=== PATIENT | female | born 1965 | race Caucasian/White ===

== ENCOUNTER 2024-01-05 18:40 | Inpatient (IN) ==
--- NOTE | 2024-01-05 19:02 | Emergency Department Note ---
Impression & Plan Renal colic, Hematuria, Hydronephrosis, Hypertension, Elevated liver enzymes ED Provider Note NAME: BRITTANY HOGAN AGE: 58 SEX: F : 1965 ARRIVES VIA: Walk-In INFORMANT: [Patient] ED PROVIDER(S): [Dion Duke MD] CHIEF COMPLAINT: Hematuria HISTORY OF PRESENT ILLNESS: The patient is a 58-year-old female who presents to the ER with about a week of some bloody urine and lately, some left flank pain that radiates to the front. She actually has noticed some pain to both flanks but the pain seems more severe on the left. She has not had fever but she has noticed nausea. She has passed ureteral stones before and she feels this may be the trouble. There has been no cough or congestion. No chest pain. She has noticed some diarrhea but it has been nonbloody. 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 She is on medication for this. She states this was fairly recently diagnosed. PMHx/PSHx/Social Hx: See Below PHYSICAL EXAM: GENERAL: Patient is in no acute distress. HEENT: No acute trauma, normocephalic atraumatic, mucous membranes moist, no nasal congestion. NECK: No stridor, no adenopathy, no meningismus, trachea is midline. LUNGS: Clear to auscultation bilaterally, no wheeze, no rhonchi, breath sounds equal. HEART: Without murmurs gallops or rubs, regular rate and rhythm. ABDOMEN: Soft, tender across the entire left side of the abdomen. No distention. EXTREMITIES: No cyanosis, full range of motion of all the joints without pain or difficulty. NEUROLOGIC: Oriented x 3, no acute motor or sensory deficits, no focal weakness. SKIN: No jaundice, no diaphoresis. Back: Left flank discomfort to percussion. DIFFERENTIAL DIAGNOSIS: Renal colic, hydronephrosis, UTI, pyelonephritis, diverticulitis, among others. EMERGENCY DEPARTMENT PROCEDURES: MEDICAL DECISION MAKING: There is no leukocytosis or concerning anemia. There is a normal platelet count. No coagulopathy. No renal failure. The patient does have some elevated liver enzymes however, she has a history of liver disease. There is no evidence for pancreatitis. Urinalysis shows some blood, no obvious infection. Abdominal and pelvis CT shows numerous stones in the left ureter causing hydronephrosis. There was also a stone in the proximal right ureter. There was some change to the gallbladder and liver, this is likely from her known liver disease. The patient was hypertensive here in the ED. She states that she does not take medication for high blood pressure. Patient was given IV Toradol for pain, IV Zofran for nausea. She was given IV morphine for pain. She was given IV labetalol for the persistently high blood pressure. The patient does seem to be improving with treatment here in the ED. I do think a hospital stay would be warranted given the size of the obstruction on the left coupled with the fact that there is now a right ureteral obstruction. Patient may require urologic intervention tomorrow. I do not see a need for emergent urologic intervention this evening. I spoke with the patient, I spoke with case management, the on-call hospitalist was consulted. Prior/Outside records/notes reviewed: None Imaging/x-ray results per my interpretation: Chronic Medical/Social conditions affecting care: None Care/Management discussed with: Case management, the on-call hospitalist. Level of care consideration(s): After review of the information above and other included data: --I believe the patient requires escalation of care to admission DISPOSITION: Admission Past Med/Surg History Problem List (Updated 01/05/24 @ 20:09 by Dion Duke MD) Elevated liver enzymes (Acute) Hypertension (Acute) Hydronephrosis (Acute) Hematuria (Acute) Renal colic (Acute) Medical History Elevated liver function tests Social History Smoking Status: Unknown if ever smoked Do You Dip or Chew Tobacco: No; Hx Alcohol Use: Yes Hx Substance Use: No Preferred Language: [place] Irish Feels Safe at Home: Yes Allergies Allergies Allergy/AdvReac Type Severity Reaction Status Date / Time No Known Allergies Allergy Verified 06/01/23 08:51 Home Meds Home Medications Medication Instructions Recorded Confirmed estradiol 0.5 mg/0.5 gram (0.1 %) 1 packet transdermal DAILY 05/26/23 06/01/23 transdermal gel packet sertraline 50 mg tablet 50 mg PO DAILY 05/26/23 06/01/23 tamsulosin 0.4 mg capsule 0.4 mg PO DAILY 05/26/23 06/01/23 Results & Data (ED) Vital Signs Vital Signs - 24 hr 01/05/24 18:43 01/05/24 19:48 01/05/24 19:54 Temperature 36.7 C Temperature Source Temporal Artery Scan Pulse Rate 76 69 72 Pulse Rate from SpO2 Sensor 72 Respiratory Rate 20 18 Respiratory Effort / Characteristics Non-Labored Spontaneous Respiratory Depth Normal Blood Pressure 173/124 H Blood Pressure [Right Arm] Blood Pressure Mean 140 Blood Pressure Mean [Right Arm] Pulse Oximetry 97 98 Oxygen Delivery Method Room Air Sepsis Recent Fever Within 48 Hours No Sepsis New/Unexplained Change in Mental Status No Sepsis Action Taken by Nursing No Action Required 01/05/24 19:59 Temperature Temperature Source Pulse Rate Pulse Rate from SpO2 Sensor Respiratory Rate Respiratory Effort / Characteristics Respiratory Depth Blood Pressure Blood Pressure [Right Arm] 163/103 H Blood Pressure Mean Blood Pressure Mean [Right Arm] 123 Pulse Oximetry Oxygen Delivery Method Sepsis Recent Fever Within 48 Hours Sepsis New/Unexplained Change in Mental Status Sepsis Action Taken by Alf Medications Current Medication List: was personally reviewed by me Laboratory Data Attestation: I reviewed the patient's lab results. 01/05/24 19:05 01/05/24 19:05 Lab Results 01/05/24 01/05/24 Range/Units 19:05 Unknown WBC 4.81 (4.8-10.8) K/ul RBC 4.10 L (4.20-5.40) M/uL Hgb 13.0 (12.0-16.0) g/dl Hct 38.3 (37.0-47.0) % MCV 93.4 (80.0-100.0) fL MCH 31.7 (25.0-34.0) pg MCHC 33.9 (32.0-36.0) g/dL RDW Std Deviation 51.2 H (36.4-46.3) fL RDW Coeff of Vlad 14.8 H (11.5-14.5) % Plt Count 190 (130-400) K/uL MPV 9.2 L (9.4-12.4) fL Immature Gran % (Auto) 0.2 % Neut % (Auto) 47.1 % Lymph % (Auto) 42.0 % [place] % (Auto) 6.0 % Eos % (Auto) 3.7 % Baso % (Auto) 1.0 % Neut # (Auto) 2.26 (1.40-6.50) K/uL Lymph # (Auto) 2.02 (1.20-3.40) K/uL [place] # (Auto) 0.29 (0.11-0.59) K/uL Eos # (Auto) 0.18 (0.00-0.50) K/uL Baso # (Auto) 0.05 (0.00-0.20) K/uL Immature Gran # (Auto) 0.01 (0.01-0.20) K/uL PT 10.4 (9.0-12.0) Seconds INR 1.0 (0.9-1.1) APTT 25 (21-31) Seconds PTT Ratio 0.9 Sodium 140 (136-145) mmol/L Potassium 3.6 (3.5-5.1) mmol/L Chloride 107 (98-107) mmol/L Carbon Dioxide 26 (21-32) mmol/L Anion Gap 7 (3-11) BUN 10 (6-23) mg/dl Creatinine 0.80 (0.6-1.2) mg/dl Est Cr Clr Drug Dosing 71.8 ml/min eGFR 85.35 BUN/Creatinine Ratio 12.5 (10-20) Glucose 86 (70-99(Fasting)) mg/dl Calcium 8.8 (8.6-10.3) mg/dl Total Bilirubin 0.9 (0.2-1.0) mg/dl AST 48 H (13-39) U/L ALT 45 (7-52) U/L Alkaline Phosphatase 298 H (34-104) U/L Total Protein 7.2 (6.0-8.3) gm/dl Albumin 3.6 (3.4-5.0) gm/dl Globulin 3.6 (2.5-4.0) gm/dl Albumin/Globulin Ratio 1.0 (0.9-2) Lipase 44 (11-82) U/L Urine Color Red Urine Appearance Turbid A (Clear) Urine pH 7.0 (4.5-7.5) Ur Specific [place] >= 1.030 (1.000-1.030) Urine Protein 3+ H (Negative) Urine Glucose (UA) Negative (Negative) Urine Ketones Negative (Negative) Urine Blood 2+ H (Negative) Urine Nitrite Negative (Negative) Urine Bilirubin Negative (Negative) Urine Urobilinogen Negative (Negative) Ur Leukocyte Esterase Negative (Negative) Administered Medications Discontinued Medications Ketorolac Tromethamine (Ketorolac Tromethamine 15 Mg/Ml Vial) 15 mg IV NOW STA Stop: 01/05/24 18:58 Last Admin: 01/05/24 19:34 Dose: 15 mg Documented By: BS Morphine Sulfate (Morphine Sulfate 4 Mg/Ml 1 Ml Carp\Vial) 4 mg IV NOW STA Stop: 01/05/24 18:58 Last Admin: 01/05/24 19:33 Dose: 4 mg Documented By: BS Ondansetron HCl (Ondansetron Inj 2 Mg/Ml 2 Ml Vial) 4 mg IV NOW STA Stop: 01/05/24 18:58 Last Admin: 01/05/24 19:34 Dose: 4 mg Documented By: BS Imaging Data Radiologist's Impression: Abdomen/Pelvis CT 01/05/24 18:57 CT SCAN OF THE ABDOMEN AND PELVIS WITHOUT IV CONTRAST CLINICAL HISTORY: Flank pain. COMPARISON STUDY: No priors. TECHNIQUE: CT scan of the abdomen and pelvis is performed from the lung bases to the proximal femora. Images are reviewed in the axial, sagittal, and coronal planes. IV contrast was not administered for this examination. A dose lowering technique was utilized adhering to the principles of ALARA. CT DOSE: 781.18 mGy.cm FINDINGS: Lung bases: The heart is normal in size and without pericardial effusion. The lung bases are clear. Esophageal varices are observed. Liver: The unenhanced liver is cirrhotic in morphology and heterogeneous in attenuation. There is hypertrophy of the left lobe and nodularity of the hepatic surface contour. There is no intrahepatic biliary ductal dilatation. Gallbladder: The gallbladder is moderately distended, the wall appears thickened and edematous. Spleen: The spleen is mildly enlarged measuring 13.5 cm in length. Pancreas: The unenhanced pancreas is moderately atrophic and grossly unremarkable. Adrenal glands: Unremarkable. Kidneys: The unenhanced kidneys are normal in size. There are numerous (at least 5) obstructing calculi in the distal left ureter below the pelvic inlet. These measure up to 8mm and cause moderate left hydroureteronephrosis. There is a 4 mm obstructing calculus in the right proximal ureter seen on axial image #115. This is located just below the ureteropelvic junction. There is no significant right- sided hydronephrosis. There are greater than 10 additional nonobstructing calculi seen in each kidney which measure up to 9 mm. There is no evidence of contour deforming renal mass lesion. A retroaortic left renal vein is incidentally noted. Abdominal vasculature: The abdominal aorta is normal in course and caliber. Bowel: There is wall thickening and edema throughout the majority of the colon which extends from the cecum to the distal descending colon. This is consistent with a nonspecific colitis. There is pericolonic inflammation and fluid. No bowel obstruction is identified. There is a tiny duodenal diverticulum. The appendix is normal as visualized. Peritoneum: There is a fat-containing umbilical hernia. No intraperitoneal free air is identified. There is a small volume of abdominopelvic ascites. Lymphadenopathy: None. Pelvic viscera: The bladder is decompressed and not well evaluated. Uterus and adnexa are normal as visualized. Skeletal structures: There is mild lumbosacral spondylosis. There is an acute to subacute appearing superior endplate compression fracture of L1 with mild loss of height. There is a mild chronic-appearing superior endplate compression deformity of L4. No lytic or blastic lesions are seen. IMPRESSION: 1. There are at least 5 obstructing calculi in the distal left ureter which measure up to 8 mm. This causes moderate left hydroureteronephrosis. 2. There is a 4 mm obstructing calculus in the right proximal ureter just below the ureteropelvic junction. There is no significant right-sided hydronephrosis. 3. Numerous additional nonobstructing calculi are seen in both kidneys. 4. The liver is cirrhotic in morphology and heterogeneous attenuation. 5. Splenomegaly, esophageal varices, and abdominopelvic ascites indicate portal hypertension. 6. There is evidence of a nonspecific pancolitis. 7. The gallbladder is mildly distended, and the wall appears thickened/edematous. This may be related to adjacent hepatocellular disease and ascites. Correlate with clinical and laboratory findings for evidence of acute cholecystitis. 7. There is a mild and age indeterminant superior endplate compression fracture of L1 which appears acute to subacute. Correlate for point tenderness. 8. Additional findings as above. ACT 112: Negative or not required by law. Electronically signed by: Dion Whitten M.D. 01/05/2024 7:36 PM Discharge Plan Visit Data Chief Complaint: Hematuria Stated Complaint: BLOOD IN URINE, LIVER ISSUES ED Provider: Dion Duke Discharge Problem: Renal colic, Hematuria, Hydronephrosis, Hypertension, Elevated liver enzymes Patient Disposition: Admitted As Inpatient Condition: Fair Forms Stand Alone Forms: [facility] [employer] Prescriptions Prescriptions: No Action tamsulosin 0.4 mg capsule 0.4 mg PO DAILY estradiol 0.5 mg/0.5 gram (0.1 %) gel in packet 1 packet transdermal DAILY sertraline 50 mg tablet 50 mg PO DAILY Referrals Referrals: PCP,NO [Physician] - Discharge Problem: Hematuria Qualifiers: Hematuria type: gross Qualified Code(s): R31.0 - Gross hematuria Hydronephrosis Qualifiers: Hydronephrosis type: with renal calculous obstruction Qualified Code(s): N13.2 - Hydronephrosis with renal and ureteral calculous obstruction Hypertension Qualifiers: Hypertension type: unspecified Qualified Code(s): I10 - Essential (primary) hypertension
[2024-01-05 19:29] LABS: Basophils # (auto) 0.05 K/uL (0.00-0.20); Eosinophils # (auto) 0.18 K/uL (0.00-0.50); Eosinophils % (auto) 3.7 %; Hematocrit (blood only) 38.3 % (37.0-47.0); Immature Granulocytes # (auto) 0.01 K/uL (0.01-0.20); Immature Granulocytes % (auto) 0.2 %; Lymphocytes # (auto) 2.02 K/uL (1.20-3.40); Mean Corpuscular Hemoglobin 31.7 pg (25.0-34.0); Mean Corpuscular Hgb Conc 33.9 g/dL (32.0-36.0); Mean Corpuscular Volume 93.4 fL (80.0-100.0); Mean Platelet Volume 9.2 fL (9.4-12.4); Monocytes # (auto) 0.29 K/uL (0.11-0.59); Neutrophils # (auto) 2.26 K/uL (1.40-6.50); Neutrophils % (auto) 47.1 %; Platelet Count 190 K/uL (130-400); RDW Coefficient of Variation 14.8 % (11.5-14.5); RDW Standard Deviation 51.2 fL (36.4-46.3); White Blood Count 4.81 K/ul (4.8-10.8)
[2024-01-05] MEDS: MoRPHine SULFATE 4 MG/ML 1 ML CARP\\VIAL IV STA (19:33)
[2024-01-05] MEDS: KETOROLAC TROMETHAMINE 15 MG/ML VIAL IV STA (19:34)
[2024-01-05] MEDS: ONDANSETRON INJ 2 MG/ML 2 ML VIAL IV STA (19:34)
--- NOTE | 2024-01-05 19:39 | CT Scan Report ---
CT SCAN OF THE ABDOMEN AND PELVIS WITHOUT IV CONTRAST CLINICAL HISTORY: Flank pain. COMPARISON STUDY: No priors. TECHNIQUE: CT scan of the abdomen and pelvis is performed from the lung bases to the proximal femora. Images are reviewed in the axial, sagittal, and coronal planes. IV contrast was not administered for this examination. A dose lowering technique was utilized adhering to the principles of ALARA. CT DOSE: 781.18 mGy.cm FINDINGS: Lung bases: The heart is normal in size and without pericardial effusion. The lung bases are clear. E sophageal varices are observed. Liver: The unenhanced liver is cirrhotic in morphology and heterogeneous in attenuation. There is hyp ertrophy of the left lobe and nodularity of the hepatic surface contour. There is no intrahepatic garcía iary ductal dilatation. Gallbladder: The gallbladder is moderately distended, the wall appears thickened and edematous. Spleen: The spleen is mildly enlarged measuring 13.5 cm in length. Pancreas: The unenhanced pancreas is moderately atrophic and grossly unremarkable. Adrenal glands: Unremarkable. Kidneys: The unenhanced kidneys are normal in size. There are numerous (at least 5) obstructing calcu li in the distal left ureter below the pelvic inlet. These measure up to 8mm and cause moderate left hydroureteronephrosis. There is a 4 mm obstructing calculus in the right proximal ureter seen on axia l image #115. This is located just below the ureteropelvic junction. There is no significant right-si ded hydronephrosis. There are greater than 10 additional nonobstructing calculi seen in each kidney w hich measure up to 9 mm. There is no evidence of contour deforming renal mass lesion. A retroaortic l eft renal vein is incidentally noted. Abdominal vasculature: The abdominal aorta is normal in course and caliber. Bowel: There is wall thickening and edema throughout the majority of the colon which extends from the cecum to the distal descending colon. This is consistent with a nonspecific colitis. There is ching lonic inflammation and fluid. No bowel obstruction is identified. There is a tiny duodenal diverticul um. The appendix is normal as visualized. Peritoneum: There is a fat-containing umbilical hernia. No intraperitoneal free air is identified. Th ere is a small volume of abdominopelvic ascites. Lymphadenopathy: None. Pelvic viscera: The bladder is decompressed and not well evaluated. Uterus and adnexa are normal as v isualized. Skeletal structures: There is mild lumbosacral spondylosis. There is an acute to subacute appearing s uperior endplate compression fracture of L1 with mild loss of height. There is a mild chronic-appeari ng superior endplate compression deformity of L4. No lytic or blastic lesions are seen. IMPRESSION: 1. There are at least 5 obstructing calculi in the distal left ureter which measure up to 8 mm. This causes moderate left hydroureteronephrosis. 2. There is a 4 mm obstructing calculus in the right proximal ureter just below the ureteropelvic gavin ction. There is no significant right-sided hydronephrosis. 3. Numerous additional nonobstructing calculi are seen in both kidneys. 4. The liver is cirrhotic in morphology and heterogeneous attenuation. 5. Splenomegaly, esophageal varices, and abdominopelvic ascites indicate portal hypertension. 6. There is evidence of a nonspecific pancolitis. 7. The gallbladder is mildly distended, and the wall appears thickened/edematous. This may be related to adjacent hepatocellular disease and ascites. Correlate with clinical and laboratory findings for evidence of acute cholecystitis. 7. There is a mild and age indeterminant superior endplate compression fracture of L1 which appears a cute to subacute. Correlate for point tenderness. 8. Additional findings as above. ACT 112: Negative or not required by law. Electronically signed by: Dion Whitten M.D. 01/05/2024 7:36 PM
[2024-01-05 19:41] LABS: Albumin Level 3.6 gm/dl (3.4-5.0); BUN Creatinine Ratio 12.5 (10-20); Bilirubin,Total 0.9 mg/dl (0.2-1.0); Calcium 8.8 mg/dl (8.6-10.3); Creatinine Clr Calc Pharmacy 71.8 ml/min; Globulin 3.6 gm/dl (2.5-4.0); Potassium 3.6 mmol/L (3.5-5.1); Total Protein 7.2 gm/dl (6.0-8.3)
[2024-01-05 19:49] LABS: Partial Thromboplastin Ratio 0.9; Partial Thromboplastin Time 25 Seconds (21-31); Prothrombin Time 10.4 Seconds (9.0-12.0)
[2024-01-05 19:51] LABS: Appearance Urine Turbid (Clear); Bilirubin Urine Negative (Negative); Blood Urine 2+ (Negative); Color Urine Red; Glucose Urine UA Negative (Negative); Ketones Urine Negative (Negative); Leukocyte Esterase Urine Negative (Negative); Nitrite Urine Negative (Negative); Protein Urine 3+ (Negative); Specific Gravity Urine >= 1.030 (1.000-1.030); Urobilinogen Urine Negative (Negative)
[2024-01-05 20:08] LABS: Bacteria Urine None Seen (None Seen); Epithelial Cell Urine 0-2 /hpf (0-2); RBC Urine >20 /hpf (0-2)
--- NOTE | 2024-01-05 20:13 | History & Physical Report ---
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 after midnight in anticipation of procedure DVT prophylaxis. SCDs re: hematuria Full code History of Present Illness Chief Complaint: Hematuria, flank pain Primary Care Provider: SLICK Feliciano History obtained from patient, family, and records. 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 1 month history of intermittent left flank pain, hematuria symptoms similar to kidney stone attacks in the past. Possible passage of stone at home. No fever, no chills, Some nausea. Patient seen at PCPs office last week. Outpatient imaging contemplated. Patient started on Cipro course for possible UTI. Outpatient urine CS possibly growing Staphylococcus as per patient. No improvement in symptoms. SBP 170s upon arrival at the ER. Denies headache, chest pain, or unusual SOB. 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 Allergies Allergy/AdvReac Type Severity Reaction Status Date / Time No Known Allergies Allergy Verified 01/05/24 20:26 Home Medications Medication Instructions Recorded Confirmed Type cholecalciferol (vitamin D3) 50 50 mcg PO QAM 01/05/24 01/05/24 History mcg (2,000 unit) tablet (Vitamin D3) ciprofloxacin HCl 500 mg tablet 500 mg PO Q12 01/05/24 01/05/24 History escitalopram oxalate 20 mg tablet 20 mg PO QAM 01/05/24 01/05/24 History multivitamin with minerals 1 tab PO DAILY 01/05/24 01/05/24 History (Hair,Skin and Nails tablet) tramadol 50 mg tablet 50 mg PO Q12 PRN Severe Pain 01/05/24 01/05/24 History (Scale Score 7-10) ursodiol 500 mg tablet 500 mg PO BIDM 01/05/24 01/05/24 History vitamin A 3,000 mcg (10,000 unit) 10,000 unit PO QPM 01/05/24 01/05/24 History capsule Past Med/Surg History Problem List (Updated 01/05/24 @ 21:49 by Raúl Hernandez MD) Asymptomatic hypertensive urgency Elevated liver enzymes (Acute) Hypertension (Acute) Hydronephrosis (Acute) Hematuria (Acute) Renal colic (Acute) Medical History Elevated liver function tests Social History Smoking Status: Never smoker Do You Dip or Chew Tobacco: No; Hx Alcohol Use: Yes Alcohol type: wine Hx Substance Use: No Preferred Language: Kiswahili Research Geologist Required: No Beliefs That Will Affect Care: None Current Living Situation: Spouse Feels Safe at Home: Yes Safety Concerns: Feels Safe At This Time Assistive Devices: Glasses Review of Systems Review of Systems: As per HPI, all other systems reviewed and negative Physical Exam Physical Exam: GENERAL: Comfortable, pleasant, no respiratory distress SKIN: Normal color, warm HEENT: Bespectacled, pink palpebral conjunctivae, no ptosis, dry buccal mucosa NECK : Supple, no tenderness CHEST : CTA, no tenderness HEART : RRR, no obvious murmurs ABDOMEN: Some distention, left-sided abdominal tenderness EXTREMITIES : No LE swelling/tenderness, no other conspicuous deformities noted NEUROLOGIC : Coherent, no facial asymmetry, no other gross focality Results & Data Results & Data Vital Signs (Past 12 Hours) Vital Signs Temp Pulse Resp BP BP Pulse Ox O2 Del Method 01/05/24 19:59 163/103 H 01/05/24 19:54 72 18 98 01/05/24 19:48 69 01/05/24 18:43 36.7 C 76 20 173/124 H 97 Room Air Laboratory Results Laboratory Results WBC 4.81 K/ul (4.8-10.8) 01/05/24 19:05 RBC 4.10 M/uL (4.20-5.40) L 01/05/24 19:05 Hgb 13.0 g/dl (12.0-16.0) 01/05/24 19:05 Hct 38.3 % (37.0-47.0) 01/05/24 19:05 MCV 93.4 fL (80.0-100.0) 01/05/24 19:05 MCH 31.7 pg (25.0-34.0) 01/05/24 19:05 MCHC 33.9 g/dL (32.0-36.0) 01/05/24 19:05 RDW Std Deviation 51.2 fL (36.4-46.3) H 01/05/24 19:05 RDW Coeff of Vlad 14.8 % (11.5-14.5) H 01/05/24 19:05 Plt Count 190 K/uL (130-400) 01/05/24 19:05 MPV 9.2 fL (9.4-12.4) L 01/05/24 19:05 Immature Gran % (Auto) 0.2 % 01/05/24 19:05 Neut % (Auto) 47.1 % 01/05/24 19:05 Lymph % (Auto) 42.0 % 01/05/24 19:05 [place] % (Auto) 6.0 % 01/05/24 19:05 Eos % (Auto) 3.7 % 01/05/24 19:05 Baso % (Auto) 1.0 % 01/05/24 19:05 Neut # (Auto) 2.26 K/uL (1.40-6.50) 01/05/24 19:05 Lymph # (Auto) 2.02 K/uL (1.20-3.40) 01/05/24 19:05 [place] # (Auto) 0.29 K/uL (0.11-0.59) 01/05/24 19:05 Eos # (Auto) 0.18 K/uL (0.00-0.50) 01/05/24 19:05 Baso # (Auto) 0.05 K/uL (0.00-0.20) 01/05/24 19:05 Immature Gran # (Auto) 0.01 K/uL (0.01-0.20) 01/05/24 19:05 PT 10.4 Seconds (9.0-12.0) 01/05/24 19:05 INR 1.0 (0.9-1.1) 01/05/24 19:05 APTT 25 Seconds (21-31) 01/05/24 19:05 PTT Ratio 0.9 01/05/24 19:05 Sodium 140 mmol/L (136-145) 01/05/24 19:05 Potassium 3.6 mmol/L (3.5-5.1) 01/05/24 19:05 Chloride 107 mmol/L (98-107) 01/05/24 19:05 Carbon Dioxide 26 mmol/L (21-32) 01/05/24 19:05 Anion Gap 7 (3-11) 01/05/24 19:05 BUN 10 mg/dl (6-23) 01/05/24 19:05 Creatinine 0.80 mg/dl (0.6-1.2) 01/05/24 19:05 Est Cr Clr Drug Dosing 71.8 ml/min 01/05/24 19:05 eGFR 85.35 01/05/24 19:05 BUN/Creatinine Ratio 12.5 (10-20) 01/05/24 19:05 Glucose 86 mg/dl (70-99(Fasting)) 01/05/24 19:05 Calcium 8.8 mg/dl (8.6-10.3) 01/05/24 19:05 Total Bilirubin 0.9 mg/dl (0.2-1.0) 01/05/24 19:05 AST 48 U/L (13-39) H 01/05/24 19:05 ALT 45 U/L (7-52) 01/05/24 19:05 Alkaline Phosphatase 298 U/L (34-104) H 01/05/24 19:05 Total Protein 7.2 gm/dl (6.0-8.3) 01/05/24 19:05 Albumin 3.6 gm/dl (3.4-5.0) 01/05/24 19:05 Globulin 3.6 gm/dl (2.5-4.0) 01/05/24 19:05 Albumin/Globulin Ratio 1.0 (0.9-2) 01/05/24 19:05 Lipase 44 U/L (11-82) 01/05/24 19:05 Urine Color Red 01/05/24 Unknown Urine Appearance Turbid (Clear) A 01/05/24 Unknown Urine pH 7.0 (4.5-7.5) 01/05/24 Unknown Ur Specific [place] >= 1.030 (1.000-1.030) 01/05/24 Unknown Urine Protein 3+ (Negative) H 01/05/24 Unknown Urine Glucose (UA) Negative (Negative) 01/05/24 Unknown Urine Ketones Negative (Negative) 01/05/24 Unknown Urine Blood 2+ (Negative) H 01/05/24 Unknown Urine Nitrite Negative (Negative) 01/05/24 Unknown Urine Bilirubin Negative (Negative) 01/05/24 Unknown Urine Urobilinogen Negative (Negative) 01/05/24 Unknown Ur Leukocyte Esterase Negative (Negative) 01/05/24 Unknown Urine RBC >20 /hpf (0-2) H 01/05/24 Unknown Urine WBC 6-10 /hpf (0-5) H 01/05/24 Unknown Ur Epithelial Cells 0-2 /hpf (0-2) 01/05/24 Unknown Urine Bacteria None Seen (None Seen) 01/05/24 Unknown Impressions Abdomen/Pelvis CT 01/05/24 18:57 CT SCAN OF THE ABDOMEN AND PELVIS WITHOUT IV CONTRAST CLINICAL HISTORY: Flank pain. COMPARISON STUDY: No priors. TECHNIQUE: CT scan of the abdomen and pelvis is performed from the lung bases to the proximal femora. Images are reviewed in the axial, sagittal, and coronal planes. IV contrast was not administered for this examination. A dose lowering technique was utilized adhering to the principles of ALARA. CT DOSE: 781.18 mGy.cm FINDINGS: Lung bases: The heart is normal in size and without pericardial effusion. The lung bases are clear. Esophageal varices are observed. Liver: The unenhanced liver is cirrhotic in morphology and heterogeneous in attenuation. There is hypertrophy of the left lobe and nodularity of the hepatic surface contour. There is no intrahepatic biliary ductal dilatation. Gallbladder: The gallbladder is moderately distended, the wall appears thickened and edematous. Spleen: The spleen is mildly enlarged measuring 13.5 cm in length. Pancreas: The unenhanced pancreas is moderately atrophic and grossly unremarkable. Adrenal glands: Unremarkable. Kidneys: The unenhanced kidneys are normal in size. There are numerous (at least 5) obstructing calculi in the distal left ureter below the pelvic inlet. These measure up to 8mm and cause moderate left hydroureteronephrosis. There is a 4 mm obstructing calculus in the right proximal ureter seen on axial image #115. This is located just below the ureteropelvic junction. There is no significant right- sided hydronephrosis. There are greater than 10 additional nonobstructing calculi seen in each kidney which measure up to 9 mm. There is no evidence of contour deforming renal mass lesion. A retroaortic left renal vein is incidentally noted. Abdominal vasculature: The abdominal aorta is normal in course and caliber. Bowel: There is wall thickening and edema throughout the majority of the colon which extends from the cecum to the distal descending colon. This is consistent with a nonspecific colitis. There is pericolonic inflammation and fluid. No bowel obstruction is identified. There is a tiny duodenal diverticulum. The appendix is normal as visualized. Peritoneum: There is a fat-containing umbilical hernia. No intraperitoneal free air is identified. There is a small volume of abdominopelvic ascites. Lymphadenopathy: None. Pelvic viscera: The bladder is decompressed and not well evaluated. Uterus and adnexa are normal as visualized. Skeletal structures: There is mild lumbosacral spondylosis. There is an acute to subacute appearing superior endplate compression fracture of L1 with mild loss of height. There is a mild chronic-appearing superior endplate compression deformity of L4. No lytic or blastic lesions are seen. IMPRESSION: 1. There are at least 5 obstructing calculi in the distal left ureter which measure up to 8 mm. This causes moderate left hydroureteronephrosis. 2. There is a 4 mm obstructing calculus in the right proximal ureter just below the ureteropelvic junction. There is no significant right-sided hydronephrosis. 3. Numerous additional nonobstructing calculi are seen in both kidneys. 4. The liver is cirrhotic in morphology and heterogeneous attenuation. 5. Splenomegaly, esophageal varices, and abdominopelvic ascites indicate portal hypertension. 6. There is evidence of a nonspecific pancolitis. 7. The gallbladder is mildly distended, and the wall appears thickened/edematous. This may be related to adjacent hepatocellular disease and ascites. Correlate with clinical and laboratory findings for evidence of acute cholecystitis. 7. There is a mild and age indeterminant superior endplate compression fracture of L1 which appears acute to subacute. Correlate for point tenderness. 8. Additional findings as above. ACT 112: Negative or not required by law. Electronically signed by: Dion Whitten M.D. 01/05/2024 7:36 PM Diagnostic Findings EKG as per my interpretation : Rate 55, sinus bradycardia, normal axis, incomplete RBBB, LAE, no ischemia
[2024-01-05] MEDS ORDERED: LORazepam 0.5 MG TAB PO PRN (20:15)
[2024-01-05] MEDS: cloNIDine HCL 0.1 MG TAB PO ONE (20:17)
[2024-01-05] MEDS: LABETALOL HCL IV 5 MG/ML 20ML IV STA (20:18)
[2024-01-05] MEDS: oxyCODONE HCL IR 5 MG TAB (IMMEDIATE RELEASE) PO PRN (21:26)
[2024-01-05] MEDS: ALBUMIN 25% 25 GM/100 ML VIAL IV ONE (21:27)
[2024-01-05] MEDS: lisinopril 2.5 MG TAB PO SCH (21:59)
[2024-01-05] MEDS: TAMSULOSIN HCL 0.4 MG CAP PO SCH (22:05)
[2024-01-05] MEDS: MoRPHine SULFATE 4 MG/ML 1 ML CARP\\VIAL IV PRN (23:44)
[2024-01-06] MEDS: PROMETHAZINE 6.25 MG/50.25 ML BAG IV PRN (03:04)
--- OUTSIDE RECORDS SUMMARY | 2024-01-06 03:11 | External Medical Summary ---
Author Name Unknown Address Unknown Organization [id number]:[facility] [address] [place] [address] Laboratory Report Ordering Provider Test Date Status TING MORA 12/23/2023 12:31:44 Final Observation Date Value Abnormality Reference (Units ) Status Albumin 12/23/2023 12:31:44 3.6 Below low normal 3.8-5.0 (g/dL) Final AST (Aspartate aminotransferase) 12/23/2023 12:31:44 64 Above high normal 10-35 (U/L) Final Alk Phos 12/23/2023 12:31:44 305 Above high normal 35-130 (U/L) Final ALT (Alanine aminotransferase) 12/23/2023 12:31:44 55 Above high normal 10-35 (U/L) Final Bilirubin, Total 12/23/2023 12:31:44 0.9 <=1.2 (mg/dL) Final Bilirubin, Direct 12/23/2023 12:31:44 0.3 0.0-0.3 (mg/dL) Final Protein 12/23/2023 12:31:44 7.2 6.0-8.3 (g/dL) Final Performing Location [facility] [place] [address]
--- OUTSIDE RECORDS SUMMARY | 2024-01-06 03:11 | External Medical Summary ---
Author Name Unknown Address Unknown Organization [id number]:[facility] - [address] [place] [address] Laboratory Report Ordering Provider Test Date Status VIKKI HEBERT 12/29/2023 15:13:20 Final Observation Date Value Abnormality Reference (Units ) Status Magnesium 12/29/2023 15:13:20 1.9 1.5-2.6 (m g/dL) Final Performing Location [facility] - [address] [place] [address]
--- OUTSIDE RECORDS SUMMARY | 2024-01-06 03:11 | External Medical Summary | Summary of Care ---
Author Name Unknown Organization [facility] Address [address] [place] [address] Phone [phone] Care Team Providers Care Acquisition Marketing Coordinator Name Role Phone AaronDarylMary Gracepaul KRUGER Primary Care Provider + Reason for Visit * Reason Comments Outpatient Testing Encounter Details Date Type Department Care Team (Late st Contact Info) Description 12/23/2023 12:30 PM EDT Laboratory Laboratory, [facility] [address] [place] [id number] [facility] [address] [place] [address] PSC (primary sclerosing cholangitis); Primary biliary cholangitis (HCC); Cirrhosis of liver without ascites, unspecified hepatic cirrhosis type (HCC); Vitamin A deficiency Allergies No known active allergiesdocumented as of this encounter (statuses as of 12/23/2023) Medications Medication Sig Dispensed Refills Start Date End Date Status traMADol (ULTRAM) 25 MG Tablet Take 0.5 Tablets by mouth every 6 hours as needed for Pain. Active Escitalopram Oxalate 10 MG Oral Tablet (Lexapro) Take 2 Tablets by mouth daily. Takes in the evening Active Ursodiol 500 MG Oral TabletIndications:P SC (primary sclerosing cholangitis),Primar y biliary cholangitis (HCC),Cirrhosis of liver without ascites, unspecified hepatic cirrhosis type (HCC) Take 1 Tablet by mouth 2 times a day with morning and evening meals. 180 Tablet 2 07/12/2023 Active Vitamin D (Ergocalciferol) 76493 UNIT Oral CapsuleIndications: Osteoporosis without current pathological fracture, unspecified osteoporosis type,Vitamin D deficiency Take 50,000 Units by mouth once a week. 8 Capsule 07/13/2023 Active Additional Information Patient taking differently: 2,000 UnitsOral QWEEK, Reported on 10/31/2023 Vitamin A 7.5 MG (29332 UT) Oral Capsule Take by mouth. Active documented as of this encounter (statuses as of 12/23/2023) Active Problems Problem Noted Date Diagnosed Date Other osteoporosis without current pathological fracture 07/19/2023 documented as of this encounter (statuses as of 12/23/2023) Social History Tobacco Use Types Packs/Day Years Used Date Smoking Tobacco: Never Smokeless Tobacco: Never Alcohol Use Standard Drinks/Week Comments Not Asked 0 (1 standard drink = 0.6 oz pur e alcohol) Occassional Last New years Utilities Answer Date Recorded Do you have trouble paying y our heating, water, or electric bill? (Adult - for ages 18 years and over) Not on file 08/23/2023 Is your family able to pay t he heat, water, or electric bill? (Household - for ages 0-17 years) Not on file 08/23/2023 Does your family have access to good internet? (Household - for ages 0-17 years) Not on file 08/23/2023 Social Connections Answer Date Recorded How often do you feel lonely or isolated from those around you? (Adult - for ages 18 years and over) Not on file 08/23/2023 Sex and Gender Information Value Date Recorded Sex Assigned at Female 07/19/2023 2:02 PM EDT Gender Identity Female 07/19/2023 2:02 PM EDT Sexual Orientation Straight 07/19/2023 2: 02 PM EDT Job Start Date Occupation Industry Not on file Not on file Not on file documented as of this encounter Plan of Treatment Upcoming Encounters Date Type Department Care Team (Late st Contact Info) Description 01/31/2024 8:00 AM EST Imaging Radiology [address] [place] [address] 04/26/2024 11:40 AM EST Office Visit Hepatology, [facility] [address] [place] [address] Cecy Zavala DO [address] [place] [address] Pending Results Name Type Priority Associated Diagnoses Date /Time HEPATIC FUNCTION PANEL Lab Routine 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 of liver without ascites, unspecified hepatic cirrhosis type (HCC) 12/23/2023 12:31 PM EDT VITAMIN A (RETINOL) Lab Routine Vitamin A deficiency 12/23/2023 12:31 PM EDT Scheduled Procedures Name Priority Associated Diagnoses Date/Ti me COLONOSCOPY FLEXIBLE PROXIMA L DIAGNOSTIC Recall History of colonic polyps Health Maintenance Due Date Last Done Comments Lipid Panel 1965 Pneumococcal Vaccine: Pediatrics (0 to 5 Years) and At-Risk Patients (6 to 64 Years) (1 of 2 - PCV) 1971 Depression Screening 1977 HIV Screening 01/30/1980 Hepatitis C Screening 1983 DTap/Tdap Vaccines (1 - Tdap) 01/30/1984 Hepatitis B Vaccine (1 of 3 - 19+ 3-dose series) 01/30/1984 Mammogram 2005 Cologuard 2010 Fecal Occult Blood Test 2010 Sigmoidoscopy 2010 Zoster Vaccines (1 of 2) 2015 *BISPHONATE OR OTHER ACCEPTABLE MEDICATION NEEDED FOR OSTEOPOROSIS (REFER TO SMARTSET #1146) 07/22/2023 COVID-19 Vaccine (1 - 2023-2 5 season) 2023 Influenza Vaccine (FLU shot) (#1) 2023 DXA Scan 07/11/2025 07/12/2023 Diabetes Screening 09/26/2026 09/27/2023, 07/12/2023 Colonoscopy 07/13/2028 07/14/2023, 07/14/2023 Colorectal Cancer Screening 07/13/2028 VITAMIN D LEVEL ONCE IN A LIFETIME-USE SMARTSET# 07963 Completed 09/27/2023, 07/12/2023 HPV (Gardasil) Vaccine Aged Out No lo nger eligible based on patient's age to complete this topic MENINGOCOCCAL (MENACTRA/MENVEO) Aged Out No longer eligible b ased on patient's age to complete this topic documented as of this encounter Medical Devices Not on filedocumented as of this encounter Visit Diagnoses Diagnosis PSC (primary sclerosing cholangitis) Cholangitis Primary biliary cholangitis (HCC) Cirrhosis of liver without ascites, unspecified hepatic cirrhosis type (HCC) Vitamin A deficiency Unspecified vitamin A deficiency documented in this encounter Care Teams Acquisition Marketing Coordinator Relationship Specialty Start Date End Date Mary Grace Walker CRNP [address] [place] [address] [place] [id number] PCP - General Nurse Practitioner 06/28/23 documented as of this encounter
--- OUTSIDE RECORDS SUMMARY | 2024-01-06 03:11 | External Medical Summary ---
Author Name Unknown Address Unknown Organization [id number] [address] [place] [address] Laboratory Report Ordering Provider Test Date Status VIKKI HEBERT 12/29/2023 15:13:20 Final Observation Date Value Abnormality Reference (Units ) Status WBC, Total 12/29/2023 15:13:20 4.96 4.00-10.8 0 (K/uL) Final RBC 12/29/2023 15:13:20 3.93 3.85-5.15 (M/uL) Final Hemoglobin 12/29/2023 15:13:20 12.6 12.0-15.3 (g/dL) Final HCT 12/29/2023 15:13:20 38.4 36.0-45.2 (%) Final MCV 12/29/2023 15:13:20 97.7 81.5-97.5 (fL) Final MCH 12/29/2023 15:13:20 32.1 27.0-34.0 (pg) Final MCHC 12/29/2023 15:13:20 32.8 32.0-36.0 (g/dL) Final RDW 12/29/2023 15:13:20 15.1 11.5-15.5 (%) Final Platelets 12/29/2023 15:13:20 180 140-400 (K /uL) Final MPV 12/29/2023 15:13:20 9.0 6.6-11.1 ( fL) Final Performing [facility] [address] [place] [address]
--- OUTSIDE RECORDS SUMMARY | 2024-01-06 03:11 | External Medical Summary ---
Author Name Unknown Address Unknown Organization [id number]:[facility] [address] [facility] [place] [address] Laboratory Report Ordering Provider Test Date Status VERONICA HEBERTPE 12/29/2023 15:13:20 Final Observation Date Value Abnormality Reference (Units ) Status BUN 12/29/2023 15:13:20 11 6-20 (mg/dL) Final Creatinine 12/29/2023 15:13:20 0.8 0.5-1.0 (mg/dL) Final Glomerular filtration rate/1.73 sq M.predicted [Volume Rate/Area] in Serum, Plasma or Blood by Creatinine-based formula (CKD-EPI) 12/29/2023 15:13:20 87 >=60 (mL/min) Final eGFR is calculated based on the CKD-EPI 2020 equation. Sodium 12/29/2023 15:13:20 141 135-146 (m mol/L) Final Potassium 12/29/2023 15:13:20 4.3 3.5-5.1 (m mol/L) Final Cl 12/29/2023 15:13:20 105 98-107 (mm ol/L) Final CO2 12/29/2023 15:13:20 26 22-32 (mmo l/L) Final Anion gap 12/29/2023 15:13:20 10 7-15 (mmol /L) Final Glucose 12/29/2023 15:13:20 79 70-120 (mg /dL) Final Albumin 12/29/2023 15:13:20 3.7 Below low normal 3.8 -5.0 (g/dL) Final AST (Aspartate aminotransferase) 12/29/2023 15:13:20 135 Above high normal 10-35 (U/L) Final Alk Phos 12/29/2023 15:13:20 426 Above high normal 35 -130 (U/L) Final Bilirubin, Total 12/29/2023 15:13:20 0.7 <=1 .2 (mg/dL) Final Calcium 12/29/2023 15:13:20 9.0 8.4-10.2 ( mg/dL) Final Protein 12/29/2023 15:13:20 6.8 6.0-8.3 (g /dL) Final ALT (Alanine aminotransferase) 12/29/2023 15:13:20 108 Above high normal 10-35 (U/L) Final Performing Location [facility] - [address] [facility] [address]
--- OUTSIDE RECORDS SUMMARY | 2024-01-06 03:11 | External Medical Summary | Summary of Care ---
Author Name Unknown Organization [facility] Address [address] [facility] [place] [address] Phone [phone] Care Team Providers Care Contract Coordinator Name Role Phone Mary Grace Walker Primary Care Provider + Encounter Details Date Type Department Care Team (Late st Contact Info) Description 11/02/2023 Telephone Hepatology, [facility] [address] [place] [address] Cecy Zavala DO [address] [place] [address] Allergies No known active allergiesdocumented as of this encounter (statuses as of 11/02/2023) Medications Medication Sig Dispensed Refills Start Date [...] Tablet 2 07/12/2023 Active Vitamin D (Ergocalciferol) 55662 UNIT Oral CapsuleIndications: Osteoporosis without current pathological fracture, unspecified osteoporosis type,Vitamin D deficiency Take 50,000 Units by mouth once a week. 8 Capsule 07/13/2023 Active Additional Information Patient taking differently: 2,000 UnitsOral QWEEK, Reported on 10/31/2023 Vitamin A 7.5 MG (80299 UT) Oral Capsule Take by mouth. Active documented as of this encounter (statuses as of 11/02/2023) Active Problems Problem Noted Date Diagnosed Date Other osteoporosis without current pathological fracture 07/19/2023 documented as of this encounter (statuses as of 11/02/2023) Social History Tobacco Use Types Packs/Day Years [...] on file documented as of this encounter Miscellaneous Notes * Telephone Encounter - Cecy Zavala DO - 11/02/2023 12:13 PM EDT Please let patient know vitamin A levels are still low. They are improved from prior but remain low. Continue vitamin A supplementation for 3 more months and then we will check again. Cecy Zavala DO documented in this encounter Plan of Treatment Upcoming Encounters Date Type Department Care Team (Late st Contact Info) Description 01/31/2024 8:00 AM EST Imaging Radiology [facility] [address] [place] [address] 04/26/2024 11:40 AM EST Office Visit Hepatology, [facility] [address] [place] [address] Cecy Zavala DO [address] [place] [address] Scheduled Procedures Name Priority Associated Diagnoses Date/Ti [...] 2010 Zoster Vaccines (1 of 2) 2015 COVID-19 Vaccine (1 - 2022-2 4 season) 2022 *BISPHONATE OR OTHER ACCEPTABLE MEDICATION NEEDED FOR OSTEOPOROSIS (REFER TO SMARTSET #1146) 07/22/2023 Influenza Vaccine (FLU shot) (#1) 2023 DXA Scan 07/11/2025 07/12/2023 Diabetes Screening 09/26/2026 09/27/2023, 07/12/2023 Colonoscopy 07/13/2028 07/14/2023, 07/14/2023 Colorectal Cancer Screening 07/13/2028 VITAMIN D LEVEL ONCE IN A LIFETIME-USE SMARTSET# 71258 Completed 09/27/2023, 07/12/2023 HPV (Gardasil) Vaccine Aged Out No lo nger eligible based on patient's age to complete this topic MENINGOCOCCAL (MENACTRA/MENVEO) Aged Out No longer eligible b ased on patient's age to complete this topic documented as of this encounter Medical Devices Not on filedocumented as of this encounter Care Teams Contract Coordinator Relationship Specialty Start Date End Date Mary Grace Walker CRNP [address] [place] [address] [place] [address] PCP - General Nurse Practitioner 06/28/23 documented as of this encounter
--- OUTSIDE RECORDS SUMMARY | 2024-01-06 03:11 | External Medical Summary | Summary of Care ---
Author Name Unknown Organization [facility] Address [address] [facility] [place] [address] Phone [phone] Care Team Providers Care Remote Medical Coder Name Role Phone Mary Grace Walker Primary Care Provider + Reason for Visit * Reason Onset Date Comments Test Results Lab 11/02/2023 Encounter Details Date Type Department Care Team (Late st Contact Info) Description 11/02/2023 Telephone Hepatology, [facility] [address] [place] [address] Cecy Zavala DO [address] [place] [address] Test Results Lab Allergies No known active allergiesdocumented as of [...] Tablet 2 07/12/2023 Active Vitamin D (Ergocalciferol) 21933 UNIT Oral CapsuleIndications: Osteoporosis without current pathological fracture, unspecified osteoporosis type,Vitamin D deficiency Take 50,000 Units by mouth once a week. 8 Capsule 07/13/2023 Active Additional Information Patient taking differently: 2,000 UnitsOral QWEEK, Reported on 10/31/2023 Vitamin A 7.5 MG (05349 UT) Oral Capsule Take by mouth. Active [...] Description 01/31/2024 8:00 AM EST Imaging Radiology [facility] [address] [place] [address] 04/26/2024 11:40 AM EST Office Visit Hepatology, [facility] [address] [place] [address] Cecy Zavala DO [address] [place] [address] Scheduled Procedures Name Priority Associated Diagnoses Date/Ti [...] D LEVEL ONCE IN A LIFETIME-USE SMARTSET# 38143 Completed 09/27/2023, 07/12/2023 HPV (Gardasil) Vaccine Aged Out No lo nger eligible based on patient's age to complete this topic MENINGOCOCCAL (MENACTRA/MENVEO) Aged Out No longer eligible b ased on patient's age to complete this topic documented as of this encounter Medical Devices Not on filedocumented as of this encounter Care Teams Remote Medical Coder Relationship Specialty Start Date End Date Mary Grace Walker CRNP [address] [place] [address] [place] [address] PCP - General Nurse Practitioner 06/28/23 documented as of this encounter
--- OUTSIDE RECORDS SUMMARY | 2024-01-06 03:11 | External Medical Summary | Summary of Care ---
Author Name Unknown Organization [facility] Address [address] [place] [address] Phone [phone] Care Team Providers Care Fuel Manager Name Role Phone AaronDarylMary Gracepaul KRUGER Primary Care Provider + Reason for Visit * Reason Comments Outpatient Testing Encounter Details Date Type Department Care Team (Late st Contact Info) Description 12/29/2023 3:10 PM EDT Laboratory Laboratory, [facility] [address] [place] [id number] [facility] [address] [place] [address] Hematuria, microscopic Allergies No known active allergiesdocumented as of this encounter (statuses as of 12/29/2023) Medications Medication Sig Dispensed Refills Start Date [...] Tablet 2 07/12/2023 Active Vitamin D (Ergocalciferol) 88662 UNIT Oral CapsuleIndications: Osteoporosis without current pathological fracture, unspecified osteoporosis type,Vitamin D deficiency Take 50,000 Units by mouth once a week. 8 Capsule 07/13/2023 Active Additional Information Patient taking differently: 2,000 UnitsOral QWEEK, Reported on 10/31/2023 Vitamin A 7.5 MG (89754 UT) Oral Capsule Take by mouth. Active documented as of this encounter (statuses as of 12/29/2023) Active Problems Problem Noted Date Diagnosed Date Other osteoporosis without current pathological fracture 07/19/2023 documented as of this encounter (statuses as of 12/29/2023) Social History Tobacco Use Types Packs/Day Years [...] Description 01/31/2024 8:00 AM EST Imaging Radiology [facility] [address] [facility] [place] [address] 04/26/2024 11:40 AM EST Office Visit Hepatology, [address] [place] [address] Cecy Zavala, [address] [place] [address] Pending Results Name Type Priority Associated Diagnoses Date /Time CBC WITH WBC DIFFERENTIAL Lab Routine Hematuria, microscopic 12/29/2023 3:13 PM EDT COMPREHENSIVE METABOLIC PANEL Lab Routine Hematuria, microscopic 12/29/2023 3:13 PM EDT MAGNESIUM Lab Routine Hematuria, microscopic 12/29/2023 3:13 PM EDT CBC Lab Routine Hematuria, microscopic 12/29/2023 3:13 PM EDT DIFFERENTIAL, AUTOMATED Lab Routine Hematuria, microscopic 12/29/2023 3:13 PM EDT Scheduled Procedures Name Priority Associated [...] D LEVEL ONCE IN A LIFETIME-USE SMARTSET# 29267 Completed 09/27/2023, 07/12/2023 HPV (Gardasil) Vaccine Aged Out No lo nger eligible based on patient's age to complete this topic MENINGOCOCCAL (MENACTRA/MENVEO) Aged Out No longer eligible b ased on patient's age to complete this topic documented as of this encounter Medical Devices Not on filedocumented as of this encounter Visit Diagnoses Diagnosis Hematuria, microscopic Microscopic hematuria documented in this encounter Care Teams Fuel Manager Relationship Specialty Start Date End Date Mary Grace Walker CRNP [address] [place] [address] [place] [address] PCP - General Nurse Practitioner 06/28/23 documented as of this encounter
--- OUTSIDE RECORDS SUMMARY | 2024-01-06 03:11 | External Medical Summary | Summary of Care ---
Author Name Unknown Organization [facility] Address [address] [facility] [place] [address] Phone [phone] Care Team Providers Care Programming Equipment Operator Name Role Phone Mary Grace Walker Primary Care Provider + Reason for Visit * Reason Onset Date Comments Test Results Lab 11/02/2023 Encounter Details Date Type Department Care Team (Late st Contact Info) Description 11/02/2023 Telephone Hepatology, [facility] [address] [place] [address] Cecy Zavala DO [address] [place] [address] Test Results Lab Allergies No known active allergiesdocumented as of this encounter (statuses as of 11/09/2023) Medications Medication Sig Dispensed Refills Start Date [...] Tablet 2 07/12/2023 Active Vitamin D (Ergocalciferol) 39157 UNIT Oral CapsuleIndications: Osteoporosis without current pathological fracture, unspecified osteoporosis type,Vitamin D deficiency Take 50,000 Units by mouth once a week. 8 Capsule 07/13/2023 Active Additional Information Patient taking differently: 2,000 UnitsOral QWEEK, Reported on 10/31/2023 Vitamin A 7.5 MG (81511 UT) Oral Capsule Take by mouth. Active documented as of this encounter (statuses as of 11/09/2023) Active Problems Problem Noted Date Diagnosed Date Other osteoporosis without current pathological fracture 07/19/2023 documented as of this encounter (statuses as of 11/09/2023) Social History Tobacco Use Types Packs/Day Years [...] encounter Miscellaneous Notes * Telephone Encounter - Viviane Wiseman LPN - 11/09/2023 10:05 AM EDT MyG message not read. Left VM to read it and call if any questions * Telephone Encounter - Cecy Zavala, - 11/02/2023 12:13 PM EDT Please let [...] Radiology [facility] [address] [place] [address] 04/26/2024 11:40 AM EST Office Visit Hepatology, [facility] [address] [place] [address] Cecy Zavala DO [address] [place] [address] Scheduled Procedures Name Priority Associated Diagnoses Date/Ti [...] SMARTSET #1146) 07/22/2023 COVID-19 Vaccine (1 - 2022-2 4 season) 2023 Influenza Vaccine (FLU shot) (#1) 2023 DXA Scan 07/11/2025 07/12/2023 Diabetes Screening 09/26/2026 09/27/2023, 07/12/2023 Colonoscopy 07/13/2028 07/14/2023, 07/14/2023 Colorectal Cancer Screening 07/13/2028 VITAMIN D LEVEL ONCE IN A LIFETIME-USE SMARTSET# 09289 Completed 09/27/2023, 07/12/2023 HPV (Gardasil) Vaccine Aged Out No lo nger eligible based on patient's age to complete this topic MENINGOCOCCAL (MENACTRA/MENVEO) Aged Out No longer eligible b ased on patient's age to complete this topic documented as of this encounter Medical Devices Not on filedocumented as of this encounter Care Teams Programming Equipment Operator Relationship Specialty Start Date End Date Mary Grace Walker CRNP [address] [place] [address] [place] [address] PCP - General Nurse Practitioner 06/28/23 documented as of this encounter
--- OUTSIDE RECORDS SUMMARY | 2024-01-06 03:11 | External Medical Summary ---
Author Name Unknown Address Unknown Organization : Laboratory Report Ordering Provider Test Date Status TING MORA 12/23/2023 12:31:44 Final Observation Date Value Abnormality Reference (Units ) Status Vitamin A, level 12/23/2023 12:31:44 33 Below low nor mal 38-98 (mcg/dL) Final Vitamin supplementation with in 24 hours prior to
blood draw may affect the accuracy of the results.
This test was developed and its analytical performance
characteristics have been determined by [email or web address]
[email or web address]. It has
not been cleared or approved by the U.S. Food and Drug
Administration. This assay has been validated pursuant
to the CLIA regulations and is used for clinical
purposes.

Test Performed at:
[facility]
[address] [facility]
[place] [address]
Marlon Emery M.D., Ph.D.,Director of Laboratories Performing Location
--- OUTSIDE RECORDS SUMMARY | 2024-01-06 03:11 | External Medical Summary | Summary of Care ---
Author Name Unknown Organization [facility] Address [address] [facility] [place] [place] [address] Phone [phone] Care Team Providers Care Assisted Living Manager Name Role Phone Mary Grace Walker Primary Care Provider + Reason for Visit * Reason Onset Date Comments Test Results Lab 01/02/2024 Encounter Details Date Type Department Care Team (Late st Contact Info) Description 01/02/2024 Telephone Hepatology, [facility] [address] [place] [address] Cecy Zavala DO [address] [place] [address] Test Results Lab Allergies No known active allergiesdocumented as of this encounter (statuses as of 01/02/2024) Medications Medication Sig Dispensed Refills Start Date [...] Tablet 2 07/12/2023 Active Vitamin D (Ergocalciferol) 94971 UNIT Oral CapsuleIndications: Osteoporosis without current pathological fracture, unspecified osteoporosis type,Vitamin D deficiency Take 50,000 Units by mouth once a week. 8 Capsule 07/13/2023 Active Additional Information Patient taking differently: 2,000 UnitsOral QWEEK, Reported on 10/31/2023 Vitamin A 7.5 MG (43008 UT) Oral Capsule Take by mouth. Active documented as of this encounter (statuses as of 01/02/2024) Active Problems Problem Noted Date Diagnosed Date Other osteoporosis without current pathological fracture 07/19/2023 documented as of this encounter (statuses as of 01/02/2024) Social History Tobacco Use Types Packs/Day Years [...] Telephone Encounter - Cecy Zavala DO - 01/02/2024 2:49 PM EDT Please let patient know I reviewed her recent labs. LFTs stable and ALP has actually improved from where it has been. Her vitamin A levels are still low and lower than on last check. Is she taking her vitamin A everyday? I want her to continue this for another 4 months and then we will recheck. Cecy Zavala DO documented in this encounter Plan of Treatment Upcoming Encounters Date Type Department Care Team (Late st Contact Info) Description 01/31/2024 8:00 AM EST Imaging Radiology [facility] [address] [place] [address] 04/26/2024 11:40 AM EST Office Visit Hepatology, [facility] [address] [place] [address] Cecy Zavala DO [address] [place] [address] Scheduled Procedures Name Priority Associated Diagnoses Date/Ti [...] 2023 DXA Scan 07/11/2025 07/12/2023 Diabetes Screening 12/28/2026 12/29/2023, 09/27/2023, 07/12/2023 Colonoscopy 07/13/2028 07/14/2023, 07/14/2023 Colorectal Cancer Screening 07/13/2028 VITAMIN D LEVEL ONCE IN A LIFETIME-USE SMARTSET# 58832 Completed 09/27/2023, 07/12/2023 HPV (Gardasil) Vaccine Aged Out No lo nger eligible based on patient's age to complete this topic MENINGOCOCCAL (MENACTRA/MENVEO) Aged Out No longer eligible b ased on patient's age to complete this topic documented as of this encounter Medical Devices Not on filedocumented as of this encounter Care Teams Assisted Living Manager Relationship Specialty Start Date End Date Mary Grace Walker CRNP [address] [place] [address] [place] [address] PCP - General Nurse Practitioner 06/28/23 documented as of this encounter
--- OUTSIDE RECORDS SUMMARY | 2024-01-06 03:11 | External Medical Summary ---
Author Name Unknown Address Unknown Organization [facility] [place] [address] Laboratory Report Ordering Provider Test Date Status VIKKI HEBERT 12/29/2023 15:13:20 Final Observation Date Value Abnormality Reference (Units ) Status SYNC LEUKOCYTES IN BLOOD BY AUTOMATED COUNT 12/29/2023 15:13:20 4.96 4.00-10.80 (K/uL) Final Segs 12/29/2023 15:13:20 59.3 40.0-75.0 (%) Final Lymphs % 12/29/2023 15:13:20 30.2 18.0-42.0 (%) Final Monos 12/29/2023 15:13:20 6.5 1.0-11.0 (%) Final Eosinophils 12/29/2023 15:13:20 3.6 0.0-6.0 (%) Final Basos 12/29/2023 15:13:20 0.4 0.0-2.0 (%) Final Absolute Segs 12/29/2023 15:13:20 2.94 1.80-7.70 (K/uL) Final Lymphs, absolute 12/29/2023 15:13:20 1.50 1.00-4.80 (K/ul) Final Monos, Abs 12/29/2023 15:13:20 0.32 0.00-1.10 (K/uL) Final Eos, Abs 12/29/2023 15:13:20 0.18 0.00-0.70 (K/uL) Final Basos, Abs 12/29/2023 15:13:20 0.02 0.00-0.20 (K/uL) Final Performing Location [facility] [place] [address]
--- OUTSIDE RECORDS SUMMARY | 2024-01-06 03:11 | External Medical Summary | Summary of Care ---
Author Name Unknown Organization [facility] Address [address] [facility] [place] [address] Phone [phone] Care Team Providers Care Aircraft Systems Technician Name Role Phone Mary Grace Walker Primary Care Provider + Reason for Visit * Reason Onset Date Comments Test Results Lab 01/02/2024 Encounter Details Date Type Department Care Team (Late st Contact Info) Description 01/02/2024 Telephone Hepatology, [facility] [address] [place] [address] Cecy Zavala DO [address] [place] [address] Test Results Lab Allergies No known active [...] Tablet 2 07/12/2023 Active Vitamin D (Ergocalciferol) 15312 UNIT Oral CapsuleIndications: Osteoporosis without current pathological fracture, unspecified osteoporosis type,Vitamin D deficiency Take 50,000 Units by mouth once a week. 8 Capsule 07/13/2023 Active Additional Information Patient taking differently: 2,000 UnitsOral QWEEK, Reported on 10/31/2023 Vitamin A 7.5 MG (99034 UT) Oral Capsule Take by mouth. Active [...] Description 01/31/2024 8:00 AM EST Imaging Radiology [facility] [address] [place] [address] 04/26/2024 11:40 AM EST Office Visit Hepatology, [facility] [address] [place] [address] Cecy Zavala DO [address] [place] [address] Scheduled Procedures Name Priority Associated Diagnoses Date/Ti [...] D LEVEL ONCE IN A LIFETIME-USE SMARTSET# 39758 Completed 09/27/2023, 07/12/2023 HPV (Gardasil) Vaccine Aged Out No lo nger eligible based on patient's age to complete this topic MENINGOCOCCAL (MENACTRA/MENVEO) Aged Out No longer eligible b ased on patient's age to complete this topic documented as of this encounter Medical Devices Not on filedocumented as of this encounter Care Teams Aircraft Systems Technician Relationship Specialty Start Date End Date Mary Grace Walker CRNP [address] [place] [address] [place] [address] PCP - General Nurse Practitioner 06/28/23 documented as of this encounter
--- OUTSIDE RECORDS SUMMARY | 2024-01-06 03:12 | External Medical Summary | Summary of Care ---
Author Name Unknown Organization [facility] Address [address] [facility] [place] [address] Phone [phone] Care Team Providers Care Livestock Farm Workers Name Role Phone Mary Grace Walker Primary Care Provider + Reason for Visit * Reason Onset Date Comments Test Results 10/18/2023 Encounter Details Date Type Department Care Team (Late st Contact Info) Description 10/18/2023 Telephone Hepatology, [facility] [address] [place] [address] Cecy Zavala DO [address] [place] [address] Test Results Allergies No known active allergiesdocumented as of this encounter (statuses as of 10/18/2023) Medications Medication Sig Dispensed Refills Start Date End Date Status traMADol (ULTRAM) 25 MG Tablet Take 0.5 Tablets by mouth every 6 hours as needed for Pain. Active Escitalopram Oxalate 10 MG Oral Tablet (Lexapro) Take 1 Tablet by mouth daily. Takes in the evening Active Ursodiol 500 MG Oral TabletIndications:PSC (primary sclerosing cholangitis),Primary biliary cholangitis (HCC),Cirrhosis of liver without ascites, unspecified hepatic cirrhosis type (HCC) Take 1 Tablet by mouth 2 times a day with morning and evening meals. 180 Tablet 2 07/12/2023 Active Vitamin D (Ergocalciferol) 16894 UNIT Oral CapsuleIndications:Os teoporosis without current pathological fracture, unspecified osteoporosis type,Vitamin D deficiency Take 50,000 Units by mouth once a week. 8 Capsule 07/13/2023 Active documented as of this encounter (statuses as of 10/18/2023) Active Problems Problem Noted Date Diagnosed Date Other osteoporosis without current pathological fracture 07/19/2023 documented as of this encounter (statuses as of 10/18/2023) Social History Tobacco Use Types Packs/Day Years [...] encounter Miscellaneous Notes * Telephone Encounter - Aliza Lua CMA - 10/18/2023 3:33 PM EDT Notified pt of MD note/results. Pt voiced understanding. Informed her scheduling will reach out to set up US for 01/28. Pt acknowledged. * Telephone Encounter - Cecy Zavala DO - 10/18/2023 10:22 AM EDT Please let patient know I reviewed her recent labs as I am just returning from maternity leave. HerLFTs and ALP have improved a lot on the ursodiol that we started in july. Continue current medication. Lets recheck LFTs again next month. We need to recheck her vitamin A and as we have been supplementing. I see her vitamin D levels were27 last month. That is still in the low end of normal and considered insufficient. Continue taking vitamin D 2000 units daily. I reviewed her MRI from July. No lesions seen in the liver, gallbladder, or biliary tree. We will plan for an abdominal ultrasound in January for HCC screening. Scheduling please arrange US for January. Cecy Zavala DO documented in this encounter Plan of Treatment Upcoming Encounters Date Type Department Care Team (Late st Contact Info) Description 10/31/2023 1:40 PM EDT Office Visit Hepatology, [facility] [place] [address] Cecy Zavala DO [address] [place] [address] Scheduled Orders Name Type Priority Associated Diagnoses Orde r Schedule VITAMIN A (RETINOL) Lab Routine Primary biliary cirrhosis (HCC) Vitamin A deficiency Expected: 10/18/2023, Expires: 10/17/2024 HEPATIC FUNCTION PANEL Lab Routine Primary biliary cirrhosis (HCC) Expected: 10/18/2023, Expires: 10/17/2024 US ABDOMEN LIMITED Medical Imaging Routine Primary biliary cirrhosis (HCC) Expected: 01/06/2024, Expires: 11/17/2024 Scheduled Procedures Name Priority Associated Diagnoses Date/Ti me COLONOSCOPY FLEXIBLE PROXIMA L DIAGNOSTIC Recall History of colonic polyps Health Maintenance Due Date Last Done Comments Lipid Panel 1965 Pneumococcal Vaccine: Pediatrics (0 to 5 Years) and At-Risk Patients (6 to 64 Years) (1 of 2 - PCV) 1971 Depression Screening 1977 HIV Screening 01/30/1980 Hepatitis C Screening 1983 DTaP,Tdap,and Td Vaccines (1 - Tdap) 01/30/1984 Hepatitis B [...] D LEVEL ONCE IN A LIFETIME-USE SMARTSET# 00697 Completed 09/27/2023, 07/12/2023 HPV (Gardasil) Vaccine Aged Out No lo nger eligible based on patient's age to complete this topic MENINGOCOCCAL (MENACTRA/MENVEO) Aged Out No longer eligible b ased on patient's age to complete this topic documented as of this encounter Medical Devices Not on filedocumented as of this encounter Visit Diagnoses Diagnosis Primary biliary cirrhosis (HCC)- Primary Biliary cirrhosis Vitamin A deficiency Unspecified vitamin A deficiency documented in this encounter Care Teams Livestock Farm Workers Relationship Specialty Start Date End Date Mary Grace Walker CRNP [address] [place] [address] [place] [address] PCP - General Nurse Practitioner 06/28/23 documented as of this encounter
--- OUTSIDE RECORDS SUMMARY | 2024-01-06 03:12 | External Medical Summary | Summary of Care ---
Author Name Unknown Organization [facility] Address [address] [place] [address] Phone [phone] Care Team Providers Care Electrophysiology Scientist Name Role Phone Mary Grace Walker Primary Care Provider + Reason for Visit * Reason Onset Date Comments Appointment 08/03/2023 Encounter Details Date Type Department Care Team (Late st Contact Info) Description 08/03/2023 Telephone Rad[address] [address] Poly Bro, RT (R) Appointment Allergies No known active allergiesdocumented as of this encounter (statuses as of 08/03/2023) Medications Medication Sig Dispensed Refills Start Date [...] Tablet 2 07/12/2023 Active Vitamin D (Ergocalciferol) 09138 UNIT Oral CapsuleIndications:Os teoporosis without current pathological fracture, unspecified osteoporosis type,Vitamin D deficiency Take 50,000 Units by mouth once a week. 8 Capsule 07/13/2023 Active documented as of this encounter (statuses as of 08/03/2023) Active Problems Problem Noted Date Diagnosed Date Other osteoporosis without current pathological fracture 07/19/2023 documented as of this encounter (statuses as of 08/03/2023) Social History Tobacco Use Types Packs/Day Years Used Date Smoking Tobacco: Never Smokeless Tobacco: Never Alcohol Use Standard Drinks/Week Comments Not Asked 0 (1 standard drink = 0.6 oz pur e alcohol) Occassional Last New years Sex and Gender Information Value Date Recorded Sex Assigned at Female 07/19/2023 2:02 PM EDT Gender Identity Female 07/19/2023 2:02 PM EDT Sexual Orientation Straight 07/19/2023 2: 02 PM EDT Job Start Date Occupation Industry Not on file Not on file Not on file documented as of this encounter Miscellaneous Notes * Telephone Encounter - Poly Bro RT (R) - 08/03/2023 2:57 PM EDT Name: Rosie Castro Do you have any of the following: Pacemaker, stents, heart valves, aneurysm clips? No Have you ever worked with metal or have you ever gotten metal in your eyes? No Have you had a colonoscopy in the last 30 days? Yes On dialysis? No Do you have any dermals or body piercing's? No or ? Do you wear an insulin pump or diabetic monitor? no RT Manisha (R) documented in this encounter Plan of Treatment Upcoming Encounters Date Type Department Care Team (Late st Contact Info) Description 08/05/2023 7:30 AM EDT Imaging Radiology [facility] [facility] [address] [place] [address] 10/31/2023 1:40 PM EDT Office Visit Hepatology, [facility] [address] [place] [address] Cecy Zavala, [address] [place] [address] Scheduled Procedures Name Priority Associated Diagnoses Date/Ti [...] Vaccines (1 - Tdap) 01/30/1984 Hepatitis B (1 of 3 - 19+ 3-dose series) 01/30/1984 Mammogram 2005 Cologuard 2010 Fecal Occult Blood Test 2010 Sigmoidoscopy 2010 Zoster Vaccines (1 of 2) 2015 COVID-19 Vaccine (1 - 2022-2 4 season) 2022 *BISPHONATE OR OTHER ACCEPTABLE MEDICATION NEEDED FOR OSTEOPOROSIS (REFER TO SMARTSET #1146) 07/22/2023 Influenza Vaccine (FLU shot) (Season Ended) 2023 DXA Scan 07/11/2025 07/12/2023 Diabetes Screening 07/11/2026 07/12/2023 Colonoscopy 07/13/2028 07/14/2023, 07/14/2023 Colorectal Cancer Screening 07/13/2028 VITAMIN D LEVEL ONCE IN A LIFETIME-USE SMARTSET# 77144 Completed 07/12/2023 GARDASIL-HPV IMMUNIZATION SERIES Aged Out No longer eligible b ased on patient's age to complete this topic MENINGOCOCCAL (MENACTRA/MENVEO) Aged Out No longer eligible b ased on patient's age to complete this topic documented as of this encounter Medical Devices Not on filedocumented as of this encounter Care Teams Electrophysiology Scientist Relationship Specialty Start Date End Date Mary Grace Walker CRNP [address] [place] [address] [place] [address] PCP - General Nurse Practitioner 06/28/23 documented as of this encounter
--- OUTSIDE RECORDS SUMMARY | 2024-01-06 03:12 | External Medical Summary | Summary of Care ---
Author Name Unknown Organization [facility] Address [address] [facility] [place] [address] Phone [phone] Care Team Providers Care Grocery Stocker Name Role Phone Mary Grace Walker Primary Care Provider + Encounter Details Date Type Department Care Team (Late st Contact Info) Description 10/18/2023 Telephone Hepatology, [facility] [address] [place] [address] Cecy Zavala DO [address] [place] [address] Allergies No known active allergiesdocumented as of [...] Tablet 2 07/12/2023 Active Vitamin D (Ergocalciferol) 86894 UNIT Oral CapsuleIndications:Os teoporosis without current pathological [...] 1:40 PM EDT Office Visit Hepatology, [facility] [address] [place] [address] Cecy Zavala DO [address] [place] [address] Scheduled Orders Name Type Priority Associated Diagnoses [...] D LEVEL ONCE IN A LIFETIME-USE SMARTSET# [id number] Completed 09/27/2023, 07/12/2023 HPV (Gardasil) Vaccine Aged [...] deficiency documented in this encounter Care Teams Grocery Stocker Relationship Specialty Start Date End Date Mary Grace Walker CRNP [address] [place] [address] [place] [address] PCP - General Nurse Practitioner 06/28/23 documented as of this encounter
--- OUTSIDE RECORDS SUMMARY | 2024-01-06 03:12 | External Medical Summary ---
Author Name Unknown Address Unknown Organization [id number]:[facility] [place] [facility] [address] [facility] [address] [place] [address] Laboratory Report Ordering Provider Test Date Status VIKKI HEBERT 09/27/2023 17:10:14 Final Observation Date Value Abnormality Reference (Units ) Status WBC, Total 09/27/2023 17:10:14 4.72 4.00-10.80 (K/uL) Final RBC 09/27/2023 17:10:14 4.02 3.85-5.15 (M/uL) Final Hemoglobin 09/27/2023 17:10:14 12.9 12.0-15.3 (g/dL) Final HCT 09/27/2023 17:10:14 38.1 36.0-45.2 (%) Final MCV 09/27/2023 17:10:14 94.8 81.5-97.5 (fL) Final MCH 09/27/2023 17:10:14 32.1 27.0-34.0 (pg) Final MCHC 09/27/2023 17:10:14 33.9 32.0-36.0 (g/dL) Final RDW 09/27/2023 17:10:14 14.9 11.5-15.5 (%) Final Platelets 09/27/2023 17:10:14 186 140-400 (K/uL) Final MPV 09/27/2023 17:10:14 10.7 6.6-11.1 (fL) Final Nucleated erythrocytes/100 leukocytes [Ratio] in Blood by Automated count 09/27/2023 17:10:14 0 <=0 (/100 WBCs) Final Performing Location [facility] [place] [address] [facility] [place] [address]
--- OUTSIDE RECORDS SUMMARY | 2024-01-06 03:12 | External Medical Summary | Summary of Care ---
Author Name Unknown Organization [facility] Address [address] [facility] [place] [address] Phone [phone] Care Team Providers Care Irrigator Name Role Phone Mary Grace Walker Primary Care Provider + Reason for Visit * Reason Onset Date Comments Test Results 07/04/2023 Encounter Details Date Type Department Care Team (Late st Contact Info) Description 07/04/2023 Telephone Gastroenterology, [facility] [address] [place] [address] Nolvia Marrufo MD [address] [place] [address] Test Results Allergies No known active allergiesdocumented as of this encounter (statuses as of 07/28/2023) Medications Medication Sig Dispensed Refills Start Date End Date Status traMADol (ULTRAM) 25 MG Tablet Take 0.5 Tablets by mouth every 6 hours as needed for Pain. Active Escitalopram Oxalate 10 MG Oral Tablet (Lexapro) Take 1 Tablet by mouth daily. Takes in the evening Active fluticasone (FLONASE) 50 MCG/ACT nasal spray 06/01/2017 07/19/2023 Discontinued( Medication List Clean Up) naproxen (NAPROSYN) 500 MG Tablet Take 1 Tablet by mouth 2 times a day with morning and evening meals. 07/19/2023 Discontinued( Medication List Clean Up) documented as of this encounter (statuses as of 07/28/2023) Active Problems Problem Noted Date Diagnosed Date Other osteoporosis without current pathological fracture 07/19/2023 documented as of this encounter (statuses as of 07/28/2023) Social History Tobacco Use Types Packs/Day Years Used Date Smoking Tobacco: Never Smokeless Tobacco: Never Sex and Gender Information Value Date Recorded Sex Assigned at Female 07/19/2023 2:02 PM EDT Gender Identity Female 07/19/2023 2:02 PM EDT Sexual Orientation Straight 07/19/2023 2: 02 PM EDT Job Start Date Occupation Industry Not on file Not on file Not on file documented as of this encounter Miscellaneous Notes * Telephone Encounter - Shandra Elizabeth RN - 07/04/2023 3:03 PM EDT Path is still in process, not resulted yet. * Telephone Encounter - Drea Glasgow OSA - 07/04/2023 1:50 PM EDT Cecy from [facility] Gastro is requesting path report from pts recent EUS with Dr Marrufo be faxed to her at [phone] Attn:Cecy. Thank you! documented in this encounter Plan of Treatment Upcoming Encounters Date Type Department Care Team (Late st Contact Info) Description 08/05/2023 7:30 AM EDT Imaging Radiology [facility]st [facility] [address] [place] [address] 10/31/2023 1:40 PM EDT Office Visit Hepatology, [facility] [address] [place] [address] Cecy Zavala DO [address] [facility] [place] [address] Scheduled Procedures Name Priority Associated Diagnoses Date/Ti [...] D LEVEL ONCE IN A LIFETIME-USE SMARTSET# 77503 Completed 07/12/2023 GARDASIL-HPV IMMUNIZATION SERIES Aged Out No longer eligible b ased on patient's age to complete this topic MENINGOCOCCAL (MENACTRA/MENVEO) Aged Out No longer eligible b ased on patient's age to complete this topic documented as of this encounter Medical Devices Not on filedocumented as of this encounter Care Teams Irrigator Relationship Specialty Start Date End Date Mary Grace Walker CRNP [address] [place] [address] [place] [address] PCP - General Nurse Practitioner 06/28/23 documented as of this encounter
--- OUTSIDE RECORDS SUMMARY | 2024-01-06 03:12 | External Medical Summary ---
Author Name Unknown Address Unknown Organization K01[place] [place] [address] [facility] [place] [address] Laboratory Report Ordering Provider Test Date Status VERONICA HEBERTPE 09/27/2023 17:10:14 Final Observation Date Value Abnormality Reference (Units ) Status BUN 09/27/2023 17:10:14 11 6-20 (mg/dL) Final Creatinine 09/27/2023 17:10:14 0.9 0.5-1.0 (mg/dL) Final Glomerular filtration rate/1.73 sq M.predicted [Volume Rate/Area] in Serum, Plasma or Blood by Creatinine-based formula (CKD-EPI) 09/27/2023 17:10:14 75 >=60 (mL/min) Final eGFR is calculated based on the CKD-EPI 2020 equation. Sodium 09/27/2023 17:10:14 142 135-146 (m mol/L) Final Potassium 09/27/2023 17:10:14 4.3 3.5-5.1 (m mol/L) Final Cl 09/27/2023 17:10:14 107 98-107 (mm ol/L) Final CO2 09/27/2023 17:10:14 25 22-32 (mmo l/L) Final Anion gap 09/27/2023 17:10:14 10 7-15 (mmol /L) Final Glucose 09/27/2023 17:10:14 105 70-120 (mg /dL) Final Albumin 09/27/2023 17:10:14 3.6 Below low normal 3.8 -5.0 (g/dL) Final AST (Aspartate aminotransferase) 09/27/2023 17:10:14 57 Above high normal 10-35 (U/L) Final Alk Phos 09/27/2023 17:10:14 326 Above high normal 35 -130 (U/L) Final Bilirubin, Total 09/27/2023 17:10:14 0.7 <=1 .2 (mg/dL) Final Calcium 09/27/2023 17:10:14 9.0 8.4-10.2 ( mg/dL) Final Protein 09/27/2023 17:10:14 6.7 6.0-8.3 (g /dL) Final ALT (Alanine aminotransferase) 09/27/2023 17:10:14 56 Above high normal 10-35 (U/L) Final Performing Location [facility] [place] [facility] [place] [address]
--- OUTSIDE RECORDS SUMMARY | 2024-01-06 03:12 | External Medical Summary ---
Author Name Unknown Address Unknown Organization K01[place] [place] [address] [address] Laboratory Report Ordering Provider Test Date Status VIKKI HEBERT 09/27/2023 17:10:14 Final Observation Date Value Abnormality Reference (Units ) Status Pathologist review of results 09/27/2023 17:10:14 Slide was reviewed and white blood cell count confirmed by pathologist. Final Performing Location [facility] - [address] [facility] [address]
--- OUTSIDE RECORDS SUMMARY | 2024-01-06 03:12 | External Medical Summary ---
Author Name Unknown Address Unknown Organization K01:[facility] - [address] [facility] [address] [facility] [address] Laboratory Report Ordering Provider Test Date Status EMILEEVIKKI 09/27/2023 17:10:14 Final Observation Date Value Abnormality Reference (Units ) Status SYNC LEUKOCYTES IN BLOOD BY AUTOMATED COUNT 09/27/2023 17:10:14 4.72 4.00-10.80 (K/uL) Final Neutrophils/100 leukocytes in Blood by Manual count 09/27/2023 17:10:14 66.0 40.0-75.0 (%) Final Lymphocytes/100 leukocytes in Blood by Manual count 09/27/2023 17:10:14 28.0 18.0-42.0 (%) Final Monocytes/100 leukocytes in Blood by Manual count 09/27/2023 17:10:14 5.0 1.0-11.0 (%) Final Eosinophils/100 leukocytes in Blood by Manual count 09/27/2023 17:10:14 1.0 0.0-6.0 (%) Final Neutrophils [#/volume] in Blood by Manual count 09/27/2023 17:10:14 3.12 1.80-7.70 (K/uL) Final Lymphocytes [#/volume] in Blood by Manual count 09/27/2023 17:10:14 1.32 1.00-4.80 (K/uL) Final Monocytes [#/volume] in Blood by Manual count 09/27/2023 17:10:14 0.24 0.00-1.10 (K/uL) Final Eosinophils [#/volume] in Blood by Manual count 09/27/2023 17:10:14 0.05 0.00-0.70 (K/uL) Final Variant lymphocytes [Presence] in Blood by Light microscopy 09/27/2023 17:10:14 Present Abnormal None Seen Final Performing Location [facility] [address] [facility] [address] [facility] [address]
--- OUTSIDE RECORDS SUMMARY | 2024-01-06 03:12 | External Medical Summary | Summary of Care ---
Author Name Unknown Organization [facility] Address [address] [facility] [place] [address] Phone [phone] Care Team Providers Care Oil Recovery Unit Operator Name Role Phone Mary Grace Walker Primary Care Provider + Reason for Visit * Reason Onset Date Comments Test Results Lab 10/13/2023 Encounter Details Date Type Department Care Team (Late st Contact Info) Description 10/13/2023 Telephone Gastroenterology, [facility] [address] [place] [address] Marlon Tompkins MD [address] [place] [address] Test Results Lab Allergies No known active allergiesdocumented as of this encounter (statuses as of 10/13/2023) Medications Medication Sig Dispensed Refills Start Date [...] Tablet 2 07/12/2023 Active Vitamin D (Ergocalciferol) 82483 UNIT Oral CapsuleIndications:Os teoporosis without current pathological fracture, unspecified osteoporosis type,Vitamin D deficiency Take 50,000 Units by mouth once a week. 8 Capsule 07/13/2023 Active documented as of this encounter (statuses as of 10/13/2023) Active Problems Problem Noted Date Diagnosed Date Other osteoporosis without current pathological fracture 07/19/2023 documented as of this encounter (statuses as of 10/13/2023) Social History Tobacco Use Types Packs/Day Years [...] Telephone Encounter - Viviane Wiseman LPN - 10/13/2023 3:28 PM EDT MyG message sent * Telephone Encounter - Viviane Wiseman LPN - 10/13/2023 3:27 PM EDT ----- Message from Marlon Tompkins MD sent at 10/13/2023 3:23 PM EDT ----- Nurses - Can you let pt know that MRI from the end of July did not show any evidence of bile duct cancer? This test should be repeated in 6 months, as it appears to have significant motion artifact. documented in this encounter Plan of Treatment Upcoming Encounters Date Type Department Care Team (Late st Contact Info) Description 10/31/2023 1:40 PM EDT Office Visit Hepatology, [facility] [address] [place] [address] Cecy Zavala DO [address] [place] [address] Scheduled Procedures Name Priority Associated Diagnoses Date/Ti [...] Vaccines (1 of 2) 2015 COVID-19 Vaccine ( - 2022-2 4 season) 2022 *BISPHONATE OR OTHER ACCEPTABLE MEDICATION NEEDED FOR OSTEOPOROSIS (REFER TO SMARTSET #1146) 07/22/2023 Influenza Vaccine (FLU shot) (#1) 2023 DXA Scan 07/11/2025 07/12/2023 Diabetes Screening 09/26/2026 09/27/2023, 07/12/2023 Colonoscopy 07/13/2028 07/14/2023, 07/14/2023 Colorectal Cancer Screening 07/13/2028 VITAMIN D LEVEL ONCE IN A LIFETIME-USE SMARTSET# 44494 Completed 09/27/2023, 07/12/2023 HPV (Gardasil) Vaccine Aged Out No lo nger eligible based on patient's age to complete this topic MENINGOCOCCAL (MENACTRA/MENVEO) Aged Out No longer eligible b ased on patient's age to complete this topic documented as of this encounter Medical Devices Not on filedocumented as of this encounter Care Teams Oil Recovery Unit Operator Relationship Specialty Start Date End Date Mary Grace Walker CRNP [address] [place] [address] [place] [address] PCP - General Nurse Practitioner 06/28/23 documented as of this encounter
--- OUTSIDE RECORDS SUMMARY | 2024-01-06 03:12 | External Medical Summary | Summary of Care ---
Author Name Unknown Organization [facility] Address [address] [place] [address] Phone [phone] Care Team Providers Care Client Services Director Name Role Phone Mary Grace Walker Primary Care Provider + Reason for Visit * Reason Comments Outpatient Testing Encounter Details Date Type Department Care Team (Late st Contact Info) Description 10/27/2023 3:20 PM EDT Laboratory Laboratory, [facility] [address] [place] [phone] [facility] [address] [place] [address] Primary biliary cirrhosis (HCC); Vitamin A deficiency Allergies No known active allergiesdocumented as of this encounter (statuses as of 10/27/2023) Medications Medication Sig Dispensed Refills Start Date [...] Tablet 2 07/12/2023 Active Vitamin D (Ergocalciferol) 99963 UNIT Oral CapsuleIndications:Os teoporosis without current pathological fracture, unspecified osteoporosis type,Vitamin D deficiency Take 50,000 Units by mouth once a week. 8 Capsule 07/13/2023 Active documented as of this encounter (statuses as of 10/27/2023) Active Problems Problem Noted Date Diagnosed Date Other osteoporosis without current pathological fracture 07/19/2023 documented as of this encounter (statuses as of 10/27/2023) Social History Tobacco Use Types Packs/Day Years [...] 10/31/2023 1:40 PM EDT Office Visit Hepatology, [facility] [address] [place] [address] Cecy Zavala DO [address] [place] [address] Pending Results Name Type Priority Associated Diagnoses Date /Time VITAMIN A (RETINOL) Lab Routine Primary biliary cirrhosis (HCC) Vitamin A deficiency 10/27/2023 3:14 PM EDT Scheduled Procedures Name Priority Associated [...] D LEVEL ONCE IN A LIFETIME-USE SMARTSET# [id number] Completed 09/27/2023, 07/12/2023 HPV (Gardasil) Vaccine Aged Out No lo nger eligible based on patient's age to complete this topic MENINGOCOCCAL (MENACTRA/MENVEO) Aged Out No longer eligible b ased on patient's age to complete this topic documented as of this encounter Medical Devices Not on filedocumented as of this encounter Visit Diagnoses Diagnosis Primary biliary cirrhosis (HCC) Biliary cirrhosis Vitamin A deficiency Unspecified vitamin A deficiency documented in this encounter Care Teams Client Services Director Relationship Specialty Start Date End Date Mary Grace Walker CRNP [address] [place] [address] [place] [address] PCP - General Nurse Practitioner 06/28/23 documented as of this encounter
--- OUTSIDE RECORDS SUMMARY | 2024-01-06 03:12 | External Medical Summary | Summary of Care ---
Author Name Unknown Organization [facility] Address [address] [facility] [place] [address] Phone [phone] Care Team Providers Care Flower Arranger Name Role Phone Mary Grace Walker Primary Care Provider + Reason for Visit * Reason Onset Date Comments Test Results 07/04/2023 Encounter Details Date Type Department Care Team (Late st Contact Info) Description 07/04/2023 Telephone Gastroenterology, [facility] [address] [place] [address] Nolvia Marrufo MD [address] [place] [address] Test Results Allergies No known active allergiesdocumented as of this encounter (statuses as of 08/05/2023) Medications Medication Sig Dispensed Refills Start Date [...] as of this encounter (statuses as of 08/05/2023) Active Problems Problem Noted Date Diagnosed Date Other osteoporosis without current pathological fracture 07/19/2023 documented as of this encounter (statuses as of 08/05/2023) Social History Tobacco Use Types Packs/Day Years [...] encounter Miscellaneous Notes * Telephone Encounter - Klaudia Granados RN - 08/05/2023 9:32 AM EDT Faxed results to number provided. * Telephone Encounter - Shandra Elizabeth RN - 07/04/2023 3:03 PM EDT Path is still in process, not resulted yet. * Telephone Encounter - Drea [place] OSA - 07/04/2023 1:50 PM EDT Cecy from [facility] Gastro is requesting path report from pts recent EUS with Dr Marrufo be faxed to her at [phone] Attn:Cecy. Thank you! documented in this encounter Plan of Treatment Upcoming Encounters Date Type Department Care Team (Late st Contact Info) Description 10/31/2023 1:40 PM EDT Office Visit Hepatology, [facility] [address] [place] [address] Cecy Zavala DO [address] [place] [address] Scheduled Procedures Name Priority Associated Diagnoses Date/Ti [...] D LEVEL ONCE IN A LIFETIME-USE SMARTSET# [id number] Completed 07/12/2023 GARDASIL-HPV IMMUNIZATION SERIES Aged Out No longer eligible b ased on patient's age to complete this topic MENINGOCOCCAL (MENACTRA/MENVEO) Aged Out No longer eligible b ased on patient's age to complete this topic documented as of this encounter Medical Devices Not on filedocumented as of this encounter Care Teams Flower Arranger Relationship Specialty Start Date End Date Mary Grace Walker CRNP [address] [place] [address] [place] [address] PCP - General Nurse Practitioner 06/28/23 documented as of this encounter
--- OUTSIDE RECORDS SUMMARY | 2024-01-06 03:12 | External Medical Summary | Summary of Care ---
Author Name Unknown Organization [facility] Address [address] [facility] [place] [address] Phone [phone] Care Team Providers Care Pens And Pencils Repairer Name Role Phone Mary Grace Walker Primary Care Provider + Reason for Visit * Reason Onset Date Comments Advice 07/25/2023 Encounter Details Date Type Department Care Team (Late st Contact Info) Description 07/25/2023 Telephone Gastroenterology, [facility] [address] [place] [address] Cecy Zavala DO [address] [place] [address] Advice Allergies No known active allergiesdocumented as of this encounter (statuses as of 10/24/2023) Medications Medication Sig Dispensed Refills Start Date [...] Tablet 2 07/12/2023 Active Vitamin D (Ergocalciferol) 00579 UNIT Oral CapsuleIndications:Os teoporosis without current pathological fracture, unspecified osteoporosis type,Vitamin D deficiency Take 50,000 Units by mouth once a week. 8 Capsule 07/13/2023 Active documented as of this encounter (statuses as of 10/24/2023) Active Problems Problem Noted Date Diagnosed Date Other osteoporosis without current pathological fracture 07/19/2023 documented as of this encounter (statuses as of 10/24/2023) Social History Tobacco Use Types Packs/Day Years [...] encounter Miscellaneous Notes * Telephone Encounter - Amie Loving RN - 08/03/2023 8:40 AM EDT MRI was approved on 07/28, message sent to pt. Please address medications questions. * Telephone Encounter - Ann Marie Lyons, JIHAN - 08/02/2023 3:21 PM EDT Patient calling to inquire if her upcoming MRI has been approved by her insurance. Please let patient know before she goes through with appointment scheduled for Tuesday. Patient also has questions on her medication that she is on. Patient is noticing that she bruises really easily and wanted to know if that could be because of taking the Vitamin A and Vitamin D that was prescribed in July by Cecy Zavala. Patient is also on Lexipro and was told that if the itching did not subside that they could increase her current dose. Please call patient back in regard to her questions. Mobile number listed in chart * Telephone Encounter - Klaudia Granados RN - 07/25/2023 4:22 PM EDT Faxed clinicals to [phone] * Telephone Encounter - Fannie Momin OSA - 07/25/2023 10:16 AM EDT Patient's received denial for MRI. Per insurance, they never received the requested clinics needed to approve MRI. [facility] called and told patient to call Doctors office to start Prior auth and send proper clinicals. Phone number for [facility] is . Mri is scheduled for August 04 documented in this encounter Plan of Treatment Upcoming Encounters Date Type Department Care Team (Late st Contact Info) Description 10/31/2023 1:40 PM EDT Office Visit Hepatology, [facility] [address] [place] [address] Cecy Zavala DO [address] [place] [address] Scheduled Procedures Name Priority Associated Diagnoses Date/Ti [...] D LEVEL ONCE IN A LIFETIME-USE SMARTSET# 40806 Completed 09/27/2023, 07/12/2023 HPV (Gardasil) Vaccine Aged Out No lo nger eligible based on patient's age to complete this topic MENINGOCOCCAL (MENACTRA/MENVEO) Aged Out No longer eligible b ased on patient's age to complete this topic documented as of this encounter Medical Devices Not on filedocumented as of this encounter Care Teams Pens And Pencils Repairer Relationship Specialty Start Date End Date Mary Grace Walker CRNP [address] [place] [address] [place] [address] PCP - General Nurse Practitioner 06/28/23 documented as of this encounter
--- OUTSIDE RECORDS SUMMARY | 2024-01-06 03:12 | External Medical Summary ---
Author Name Unknown Address Unknown Organization K01:[facility] [place] - [address] [facility] [place] [address] Laboratory Report Ordering Provider Test Date Status VIKKI HEBERT 09/27/2023 17:10:14 Final Observation Date Value Abnormality Reference (Units ) Status TSH 09/27/2023 17:10:14 3.05 0.27-4.20 (uIU/mL) Final Performing Location [facility] - [address] [place] [address]
--- OUTSIDE RECORDS SUMMARY | 2024-01-06 03:12 | External Medical Summary | Summary of Care ---
Author Name Unknown Organization [facility] Address [address] [facility] [place] [address] Phone [phone] Care Team Providers Care Music Supervisor Name Role Phone Mary Grace Walker Primary Care Provider + Encounter Details Date Type Department Care Team (Late st Contact Info) Description 10/20/2023 Orders Only PATIENT PORTAL DO NOT DELETE THIS DEPT USED BY [place] [id number] Allergies No known active allergiesdocumented as of this encounter (statuses as of 10/20/2023) Medications Medication Sig Dispensed Refills Start Date [...] Tablet 2 07/12/2023 Active Vitamin D (Ergocalciferol) 44426 UNIT Oral CapsuleIndications:Os teoporosis without current pathological fracture, unspecified osteoporosis type,Vitamin D deficiency Take 50,000 Units by mouth once a week. 8 Capsule 07/13/2023 Active documented as of this encounter (statuses as of 10/20/2023) Active Problems Problem Noted Date Diagnosed Date Other osteoporosis without current pathological fracture 07/19/2023 documented as of this encounter (statuses as of 10/20/2023) Social History Tobacco Use Types Packs/Day Years [...] 10/31/2023 1:40 PM EDT Office Visit Hepatology, [facility] [address] [address] [address] Cecy Zavala DO [address] [place] [address] Scheduled Procedures Name Priority Associated Diagnoses Date/Ti [...] D LEVEL ONCE IN A LIFETIME-USE SMARTSET# 33503 Completed 09/27/2023, 07/12/2023 HPV (Gardasil) Vaccine Aged Out No lo nger eligible based on patient's age to complete this topic MENINGOCOCCAL (MENACTRA/MENVEO) Aged Out No longer eligible b ased on patient's age to complete this topic documented as of this encounter Medical Devices Not on filedocumented as of this encounter Care Teams Music Supervisor Relationship Specialty Start Date End Date Mary Grace Walker CRNP [address] [place] [address] [place] [address] PCP - General Nurse Practitioner 06/28/23 documented as of this encounter
--- OUTSIDE RECORDS SUMMARY | 2024-01-06 03:12 | External Medical Summary ---
Author Name Unknown Address Unknown Organization K0G:[facility] [place] [address] - [address] [place] [address] Laboratory Report Ordering Provider Test Date Status TING MORA 10/27/2023 15:14:03 Final Observation Date Value Abnormality Reference (Units ) Status Albumin 10/27/2023 15:14:03 3.6 Below low normal 3.8-5.0 (g/dL) Final AST (Aspartate aminotransferase) 10/27/2023 15:14:03 58 Above high normal 10-35 (U/L) Final Alk Phos 10/27/2023 15:14:03 340 Above high normal 35-130 (U/L) Final ALT (Alanine aminotransferase) 10/27/2023 15:14:03 52 Above high normal 10-35 (U/L) Final Bilirubin, Total 10/27/2023 15:14:03 0.7 <=1.2 (mg/dL) Final Bilirubin, Direct 10/27/2023 15:14:03 0.3 0.0-0.3 (mg/dL) Final Protein 10/27/2023 15:14:03 7.1 6.0-8.3 (g/dL) Final Performing Location [facility] [place] [facility] - [address] [place] [address]
--- OUTSIDE RECORDS SUMMARY | 2024-01-06 03:12 | External Medical Summary ---
Author Name Unknown Address Unknown Organization K01:[facility] - [address] [place] [address] Laboratory Report Ordering Provider Test Date Status VIKKI HEBERT 09/27/2023 17:10:14 Final Observation Date Value Abnormality Reference (Units ) Status CEA 09/27/2023 17:10:14 2.9 <=5.2 (ng/ mL) Final Performing Location [facility] - [address] [place] [address]
--- OUTSIDE RECORDS SUMMARY | 2024-01-06 03:12 | External Medical Summary ---
Author Name Unknown Address Unknown Organization : Laboratory Report Ordering Provider Test Date Status TING MORA 10/27/2023 15:14:03 Final Observation Date Value Abnormality Reference (Units ) Status Vitamin A, level 10/27/2023 15:14:03 37 Below low nor mal 38-98 (mcg/dL) Final Vitamin supplementation with in 24 hours prior to
blood draw may affect the accuracy of the results.
This test was developed and its analytical performance
characteristics have been determined by [employer]
[place] It has
not been cleared or approved by the U.S. Food and Drug
Administration. This assay has been validated pursuant
to the CLIA regulations and is used for clinical
purposes.

Test Performed at:
[facility]
[address] [place] [address]
Marlon Emery M.D., Ph.D.,Director of Laboratories Performing Location
--- OUTSIDE RECORDS SUMMARY | 2024-01-06 03:12 | External Medical Summary ---
Author Name Unknown Address Unknown Organization K01:[facility] [place] - [address] [facility] [place] [address] Laboratory Report Ordering Provider Test Date Status TING MORA 09/27/2023 17:10:14 Final Observation Date Value Abnormality Reference (Units ) Status Bilirubin, Direct 09/27/2023 17:10:14 0.4 Above high normal 0.0-0.3 (mg/dL) Final Performing Location [facility] - [address] [place] [address]
--- OUTSIDE RECORDS SUMMARY | 2024-01-06 03:12 | External Medical Summary | Summary of Care ---
Author Name Unknown Organization [facility] Address [address] [facility] [place] [address] Phone [phone] Care Team Providers Care Shellfish Dredge Operator Name Role Phone Mary Grace Walker Primary Care Provider + Reason for Visit * Reason Onset Date Comments Test Results 10/18/2023 Encounter Details Date Type Department Care Team (Late st Contact Info) Description 10/18/2023 Telephone Hepatology, [facility] [address] [place] [address] Cecy Zavala DO [address] [place] [address] Test Results Allergies No known active allergiesdocumented as of this encounter (statuses as of 10/19/2023) Medications Medication Sig Dispensed Refills Start Date [...] Tablet 2 07/12/2023 Active Vitamin D (Ergocalciferol) 56448 UNIT Oral CapsuleIndications:Os teoporosis without current pathological fracture, unspecified osteoporosis type,Vitamin D deficiency Take 50,000 Units by mouth once a week. 8 Capsule 07/13/2023 Active documented as of this encounter (statuses as of 10/19/2023) Active Problems Problem Noted Date Diagnosed Date Other osteoporosis without current pathological fracture 07/19/2023 documented as of this encounter (statuses as of 10/19/2023) Social History Tobacco Use Types Packs/Day Years [...] Telephone Encounter - Aliza Lua CMA - 10/19/2023 8:38 AM EDT Left a detailed message for pt to have labs drawn prior to 10/31/23 appt if possible and to call office with questions/concerns. * Telephone Encounter - Aliza Lua CMA [...] 1:40 PM EDT Office Visit Hepatology, [facility] [address] [facility] [place] [address] Cecy Zavala DO [address] [facility] [place] [address] Scheduled Orders Name Type Priority Associated Diagnoses [...] D LEVEL ONCE IN A LIFETIME-USE SMARTSET# 19106 Completed 09/27/2023, 07/12/2023 HPV (Gardasil) Vaccine Aged [...] deficiency documented in this encounter Care Teams Shellfish Dredge Operator Relationship Specialty Start Date End Date Mary Grace Walker CRNP [address] [place] [address] [place] [address] PCP - General Nurse Practitioner 06/28/23 documented as of this encounter
--- OUTSIDE RECORDS SUMMARY | 2024-01-06 03:12 | External Medical Summary | Summary of Care ---
Author Name Unknown Organization [facility] Address [address] [place] [address] Phone [phone] Care Team Providers Care Loan Representative Name Role Phone Mary Grace Walker Primary Care Provider + Reason for Visit * Reason Onset Date Comments Appointment 06/14/2023 Encounter Details Date Type Department Care Team (Late st Contact Info) Description 06/14/2023 Telephone Gastroenterology, [facility] [address] [place] [address] Specified, [facility] [address] [place] [address] Appointment Allergies No known active allergiesdocumented as of this encounter (statuses as of 07/20/2023) Medications Medication Sig Dispensed Refills Start Date End Date Status traMADol (ULTRAM) 25 MG Tablet Take 0.5 Tablets by mouth every 6 hours as needed for Pain. 0 Active fluticasone (FLONASE) 50 MCG/ACT nasal spray 0 06/01/2017 07/19/2023 Discontinued( Medication List Clean Up) naproxen (NAPROSYN) 500 MG Tablet Take 1 Tablet by mouth 2 times a day with morning and evening meals. 0 07/19/2023 Discontinued( Medication List Clean Up) documented as of this encounter (statuses as of 07/20/2023) Active Problems Problem Noted Date Diagnosed Date Other osteoporosis without current pathological fracture 07/19/2023 documented as of this encounter (statuses as of 07/20/2023) Social History Tobacco Use Types Packs/Day Years [...] encounter Miscellaneous Notes * Telephone Encounter - Rosi Watson OSA - 06/17/2023 2:30 PM EDT Pt took the 06/27 date. Samina had me add her for a 10:15 AM arrival. Instructions were scanned to email. * Telephone Encounter - Nolvia Marrufo MD - 06/17/2023 12:11 PM EDT Please offer her EUS with LB on 06/27 at [facility] and if she agrees then call me and I will assist with the schedule as some cases can be adjusted. If she declines then next available. * Telephone Encounter - Rosi Watson OSA - 06/14/2023 10:17 AM EDT Referral received from [facility] Gastro DX: Other specified abnormal findings of blood chemistry. Referring provider: Nestor Sanders NOTES TO STAFF: Evaluation/ possible liver biopsy. Records were placed into scans. Please forward to one of our Advanced Endoscopist. documented in this encounter Plan of Treatment Upcoming Encounters Date Type Department Care Team (Late st Contact Info) Description 08/05/2023 7:30 AM EDT Imaging Radiology [facility] [address] [place] [address] 10/31/2023 1:40 PM EDT Office Visit Hepatology, [facility] [address] [place] [address] Cecy Zavala DO [address] [place] [address] Scheduled Procedures Name Priority Associated Diagnoses Date/Ti [...] Vaccine ( - 2022-2 4 season) 2022 Influenza Vaccine (FLU shot) (Season Ended) 2023 DXA Scan 07/11/2025 07/12/2023 Diabetes Screening 07/11/2026 07/12/2023 Colonoscopy 07/13/2028 07/14/2023, 07/14/2023 Colorectal Cancer Screening 07/13/2028 VITAMIN D LEVEL ONCE IN A LIFETIME-USE SMARTSET# 22586 Completed 07/12/2023 GARDASIL-HPV IMMUNIZATION SERIES Aged Out No longer eligible b ased on patient's age to complete this topic MENINGOCOCCAL (MENACTRA/MENVEO) Aged Out No longer eligible b ased on patient's age to complete this topic documented as of this encounter Medical Devices Not on filedocumented as of this encounter Care Teams Loan Representative Relationship Specialty Start Date End Date Mary Grace Walker CRNP [address] [place] [address] [place] [address] PCP - General Nurse Practitioner 06/28/23 documented as of this encounter
--- OUTSIDE RECORDS SUMMARY | 2024-01-06 03:12 | External Medical Summary | Summary of Care ---
Author Name Unknown Organization [facility] Address [address] [place] [address] Phone [phone] Care Team Providers Care Motor Vehicle Salesperson Name Role Phone Mary Grace Walker Primary Care Provider + Reason for Visit * Reason Comments Outpatient Testing Encounter Details Date Type Department Care Team (Late st Contact Info) Description 09/27/2023 4:30 PM EDT Laboratory Laboratory, [facility] [address] [place] [id number] [facility] [address] [place] [address] PSC (primary sclerosing cholangitis); Primary biliary cholangitis (HCC); Cirrhosis of liver without ascites, unspecified hepatic cirrhosis type (HCC); Deficiency anemia; Elevated liver enzymes; Loss of weight; Vitamin D deficiency Allergies No known active allergiesdocumented as of this encounter (statuses as of 09/27/2023) Medications Medication Sig Dispensed Refills Start Date [...] Tablet 2 07/12/2023 Active Vitamin D (Ergocalciferol) 20981 UNIT Oral CapsuleIndications:Os teoporosis without current pathological fracture, unspecified osteoporosis type,Vitamin D deficiency Take 50,000 Units by mouth once a week. 8 Capsule 07/13/2023 Active documented as of this encounter (statuses as of 09/27/2023) Active Problems Problem Noted Date Diagnosed Date Other osteoporosis without current pathological fracture 07/19/2023 documented as of this encounter (statuses as of 09/27/2023) Social History Tobacco Use Types Packs/Day Years [...] 10/31/2023 1:40 PM EDT Office Visit Hepatology, [facility] [address] [address] [address] Cecy Zavala DO [address] [place] [address] Pending Results Name Type Priority Associated Diagnoses Date /Time CBC WITH WBC DIFFERENTIAL Lab Routine Deficiency anemia Elevated liver enzymes Loss of weight Vitamin D deficiency 09/27/2023 5:10 PM EDT COMPREHENSIVE METABOLIC PANEL Lab Routine Deficiency anemia Elevated liver enzymes Loss of weight Vitamin D deficiency 09/27/2023 5:10 PM EDT CEA Lab Routine Deficiency anemia Elevated liver enzymes Loss of weight Vitamin D deficiency 09/27/2023 5:10 PM EDT TSH Lab Routine Deficiency anemia Elevated liver enzymes Loss of weight Vitamin D deficiency 09/27/2023 5:10 PM EDT T4, FREE Lab Routine Deficiency anemia Elevated liver enzymes Loss of weight Vitamin D deficiency 09/27/2023 5:10 PM EDT 25-HYDROXY VITAMIN D Lab Routine Deficiency anemia Elevated liver enzymes Loss of weight Vitamin D deficiency 09/27/2023 5:10 PM EDT CBC Lab Routine Deficiency anemia Elevated liver enzymes Loss of weight Vitamin D deficiency 09/27/2023 5:10 PM EDT DIFFERENTIAL, AUTOMATED Lab Routine Deficiency anemia Elevated liver enzymes Loss of weight Vitamin D deficiency 09/27/2023 5:10 PM EDT BILIRUBIN, DIRECT Lab Routine 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 of liver without ascites, unspecified hepatic cirrhosis type (HCC) 09/27/2023 5:10 PM EDT Scheduled Procedures Name Priority Associated [...] D LEVEL ONCE IN A LIFETIME-USE SMARTSET# 44146 Completed 07/12/2023 HPV (Gardasil) Vaccine Aged Out No [...] without ascites, unspecified hepatic cirrhosis type (HCC) Deficiency anemia Unspecified deficiency anemia Elevated liver enzymes Nonspecific elevation of levels of transaminase or lactic acid dehydrogenase (LDH) Loss of weight Vitamin D deficiency Unspecified vitamin D deficiency documented in this encounter Care Teams Motor Vehicle Salesperson Relationship Specialty Start Date End Date Mary Grace Walker CRNP [address] [place] [address] [place] [address] PCP - General Nurse Practitioner 06/28/23 documented as of this encounter
--- OUTSIDE RECORDS SUMMARY | 2024-01-06 03:12 | External Medical Summary | Summary of Care ---
Author Name Unknown Organization [facility] Address [address] [facility] [place] [address] Phone [phone] Care Team Providers Care Casey Saw Operator Name Role Phone AaronDarylMary Gracepaul KRUGER Primary Care Provider + Reason for Visit * Reason Comments Follow Up Pt reports that she feels the same as previous. No symptoms Encounter Details Date Type Department Care Team (Late st Contact Info) Description 10/31/2023 1:40 PM EDT Office Visit Hepatology, [facility] [address] [facility] [place] [address] Cecy Zavala DO [address] [place] [address] Primary biliary cholangitis (HCC)*; PSC (primary sclerosing cholangitis) Allergies No known active allergiesdocumented as of this encounter (statuses as of 10/31/2023) Medications Medication Sig Dispensed Refills Start Date [...] Tablet 2 07/12/2023 Active Vitamin D (Ergocalciferol) 24719 UNIT Oral CapsuleIndications: Osteoporosis without current pathological fracture, unspecified osteoporosis type,Vitamin D deficiency Take 50,000 Units by mouth once a week. 8 Capsule 07/13/2023 Active Additional Information Patient taking differently: 2,000 UnitsOral QWEEK, Reported on 10/31/2023 Vitamin A 7.5 MG (35374 UT) Oral Capsule Take by mouth. Active documented as of this encounter (statuses as of 10/31/2023) Active Problems Problem Noted Date Diagnosed Date Other osteoporosis without current pathological fracture 07/19/2023 documented as of this encounter (statuses as of 10/31/2023) Social History Tobacco Use Types Packs/Day Years [...] on file documented as of this encounter Last Filed Vital Signs Vital Sign Reading Time Taken Comments Blood Pressure 141/68 10/31/2023 1:49 PM EDT Pulse 63 10/31/2023 1:49 PM EDT Temperature 36.5 C (97.7 F) 10/31/2023 1:49 PM ED T Respiratory Rate - - Oxygen Saturation - - Inhaled Oxygen Concentration - - Weight 69.1 kg (152 lb 6.4 oz) 10/31/2023 1:49 P M EDT Height - - Body Mass Index 26.16 07/14/2023 7:40 AM EDT documented in this encounter Progress Notes * eCcy Zavala, DO - 10/31/2023 1:55 PM EDT Images from the original note were not included. CC: PSC/PBC HPI: Rosie Castro is a 58 year old female presenting today for follow up of PBC/PSC. Patient was initially referred to Dr. Marrufo by [facility] for abnormal LFTs for a liver biopsy. 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 The liver biopsy shows histologic changes consistent with a chronic biliary tract disorder in keeping with the cholestatic pattern of the liver function tests. Based on the prominent biliary fibro-obliterative changes, primary sclerosing cholangitis (PSC) is favored over primary biliary cholangitis (PBC). However, the histologic changes are nonspecific, and clinical correlation is needed to rule out secondary sclerosing cholangitis. She had an abdominal US completed 06/02/2023 showing a nodular liver concerning for early cirrhosis.CBD 3 mm. Normal gallbladder with no gallstones. Labs from last month with ALP 834, ALT 141, AST 119, total bilirubin 1.1. Her AMA is >1:640. ASMA mildly + at 1:20 but no features of AIH seen on liver biopsy. She states this all started in May when she got blood work done for life insurance and her LFTs were found to be markedly elevated. Called her doctor in [place] and she was told to go to the hospital because her LFTs were very high and platelets were low. Then she was referred to [facility] and that resulted in the liber biopsy. She states upon looking back her LFTs were actually elevated for the past couple years and one doctor told her as far as 2012 they were elevated but she does not knowhow elevated they were. Her daughter has lupus, RA, and Sgorens. No family history of liver disease. She drinks alcohol very rarely. No history of any alcohol abuse, denies any drug use, denies tobacco use. She was taking Ashwaganda herbal supplement up until a couple months but she states she quit taking it. She would take it a couple times per week for 2 months and then quit when LFTs were high. Denies any other OTC or herbal supplements. No family history of colon or rectal cancer. Her DEXA scan was concerning for osteoporosis and she was seen by rheumatology who recommended Fosamax. They wanted her to wait until her teeth were pulled (dental work) for extractions and until vitamin D levels were back to normal as they were very low at 19. Most recent check was 27 1 month ago.they have deferred to her PCP to start the osteoporosis treatment. Review of systems: Positives in HPI. Negative for: Denies headache, lightheadedness, chest pain, cough, SOB, fever, chills, nausea, vomiting, heart burn, bloating, decreased appetite, early satiety, abdominal pain, diarrhea, fecal incontinence, constipation, rectal bleeding, weight loss, dysuria, frequency, incontinence, joint pain, back pain, weakness, fatigue, anxiety, depressed mood, difficulty sleeping. The remaining ROS reviewed and are negative. Past Medical History: Diagnosis Date History of pulmonary embolism Past Surgical History: Procedure Laterality Date COLONOSCOPY, DIAGNOSTIC (RECTUM) 07/14/2023 hemorrhoids/biopsies show hyperplastic polyps/recall 5 years/COLONOSCOPY FLEXIBLE PROXIMAL DIAGNOSTIC performed by Cecy Zavala DO at [facility] EGD, FLEXIBLE, DIAGNOSTIC 06/28/2023 ESOPHAGOGASTRODUODENOSCOPY (EGD), FLEXIBLE, TRANSORAL, DIAGNOSTIC performed by Nolvia Marrufo MD at [facility] EGD, W/ENDOSCOPIC US 06/28/2023 biopsies show mild irritation of stomach, liver show chronic cholestatic liver disease/ESOPHAGOGASTRODUODENOSCOPY (EGD), FLEXIBLE, TRANSORAL, ENDOSCOPIC ULTRASOUND performed by N[facility]fo MDat [facility] NE [place]-OOPHORECTOMY COMPL/PRTL UNI/BI SPX cervix remaining SHOULDER ARTHROSCOPY SURGERY Right Family History Problem Relation Name Age of Onset Osteoporosis Mother Hyperlipidemia Mother Cancer Father metasatic lung Hyperlipidemia Sister Other (dvt) Sister Other (mixed connective disease) Daughter Other (hyperthyroidism) Daughter Current Outpatient Medications Medication Sig Dispense Refill traMADol (ULTRAM) 25 MG Tablet Take 0.5 Tablets by mouth every 6 hours as needed for Pain. Escitalopram Oxalate 10 MG Oral Tablet (Lexapro) Take 2 Tablets by mouth daily. Takes in the evening Ursodiol 500 MG Oral Tablet Take 1 Tablet by mouth 2 times a day with morning and evening meals. 180 Tablet 2 Vitamin D (Ergocalciferol) 59243 UNIT Oral Capsule Take 50,000 Units by mouth once a week. (Patienttaking differently: Take 2,000 Units by mouth once a week.) 8 Capsule 0 Vitamin A 7.5 MG (01919 UT) Oral Capsule Take by mouth. No current facility-administered medications for this visit. Review of patient's allergies indicates: No Known Allergies Physical Exam: vitals: BP 141/68 | Pulse 63 | Temp 36.5 C (97.7 F) | Wt 69.1 kg (152 lb 6.4 oz) | BMI 26.16 kg/m | BSA 1.77 m GENERAL: Well developed and well nourished in no acute distress. No notable sarcopenia. SKIN: No rashes, ulcers, jaundice or spider angiomata. HEENT: Normocephalic, sclera anicteric NECK: Supple LUNGS: Clear to auscultation bilaterally, no respiratory distress or accessory muscles used. HEART: Regular rate & rhythm, no murmurs, rubs, or gallops present ABDOMEN: Normal bowel sounds, soft and nontender, no masses or hepatosplenomegaly. No appreciable ascites or fluid wave. EXTREMITIES: No palmar erythema, no lower extremity edema. NEURO: No lateralizing findings. Sensory/Motor grossly normal. No asterixis present on exam. Labs: Reviewed MELD 3.0: 9 at 07/12/2023 10:48 AM Calculated from: Serum Creatinine: 0.8 mg/dL (Using min of 1 mg/dL) at 07/12/2023 10:48 AM Serum Sodium: 141 mmol/L (Using max of 137 mmol/L) at 07/12/2023 10:48 AM Total Bilirubin: 1.4 mg/dL at 07/12/2023 10:48 AM Serum Albumin: 4.1 g/dL (Using max of 3.5 g/dL) at 07/12/2023 10:48 AM INR(ratio): 0.9 (Using min of 1) at 07/12/2023 10:48 AM Age at listing (hypothetical): 58 years Sex: Female at 07/12/2023 10:48 AM Component Latest Ref Rng 07/12/2023 09/27/2023 10/27/2023 BUN 6 - 20 mg/dL 11 Creatinine 0.5 - 1.0 mg/dL 0.9 Estimated Glomerular Filtration Rate >=60 mL/min 75 Sodium 135 - 146 mmol/L 142 Potassium 3.5 - 5.1 mmol/L 4.3 Chloride 98 - 107 mmol/L 107 CO2 22 - 32 mmol/L 25 Anion Gap 7 - 15 mmol/L 10 Glucose 70 - 120 mg/dL 105 Albumin 3.8 - 5.0 g/dL 4.1 3.6 (L) 3.6 (L) AST 10 - 35 U/L 199 (H) 57 (H) 58 (H) Alkaline Phosphatase 35 - 130 U/L 871 (H) 326 (H) 340 (H) Bilirubin, Total <=1.2 mg/dL 1.4 (H) 0.7 0.7 Calcium 8.4 - 10.2 mg/dL 9.0 Protein 6.0 - 8.3 g/dL 7.9 6.7 7.1 ALT 10 - 35 U/L 219 (H) 56 (H) 52 (H) Bilirubin, Direct 0.0 - 0.3 mg/dL 0.6 (H) 0.3 Legend: (H) High (L) Low Imaging: Reviewed MRI liver 08/05/2023: IMPRESSION Small ascites. Mild splenomegaly. Mild periportal edema. No intrahepatic or extrahepatic biliary ductal dilatation, pruning, or beading of the biliary tree. No hepatic mass. Exam is limited by lack of IV contrast. Mild gallbladder wall thickening. No gallstone. DEXA scan 07/12/2023: RESULTS: Lumbar spine: INVALID Left femoral neck: 0.562 gms/cm2 T-score: -2.6 Z-score: -1.4 FRAX not indicated. IMPRESSIONS: Fracture risk is based on current National Osteoporosis Foundation (www.nof.org) Clinicians Guide and [place] Association of Clinical Endocrinology (AACE) Guidelines (www.aace.com) and the application of current WHO FRAX tool (https://www.jing.ac.uk/FRAX/) as well as the 2017 [place] [employer]umatology Glucocorticoid Induced Osteoporosis (GIOP) Guidelines (rheumatology.org/Practice-Musa lity/Clinical-Support/Tcccgely-Nbrelsno-Smeubtlwtp) using Bone mineral density derived T-scores andclinical risk factors obtained from the patient questionnaire. 1. The fracture risk is HIGH (based on T-score at or below -2.5) 2. The quality of the examination is GOOD. The values at the lumbar spine are falsely elevated, andtherefore the values at the hip/femoral neck are a better reflection of fracture risk in this patient. 3. No previous study for comparison. The low Z-score reflects a low bone mineral density compared to age, and gender- matched controls. Abdominal US 06/02/2023: Procedures: Reviewed Colonoscopy 07/14/2023: Impression: - One 3 mm polyp in the descending colon, removed with a cold snare. Resected and retrieved. - Internal hemorrhoids. EGD 06/28/2023: Impression: - Normal esophagus. - Erythematous mucosa in the stomach. Biopsied. - Normal duodenal bulb and second portion of the duodenum. EUS 06/28/2023: Impression: - There was no sign of significant pathology in the ampulla. - There was no sign of significant pathology in the common bile duct. - There was no sign of significant pathology in the gallbladder. - There was no evidence of significant pathology in the liver. Fine needle biopsy performed. - There was no sign of significant pathology in the entire pancreas. - The celiac trunk was endosonographically normal. Liver biopsy 06/28/2023: SURGICAL PATHOLOGY: [id number] Component Resulting Agency Final Diagnosis A. Stomach, biopsy: Gastric antral and fundic gland mucosa with chronic gastritis. Negative for H. pylori (negative immunohistochemical stain). B. Liver, left lobe, biopsy: Chronic cholestatic liver disease with portal chronic inflammation, bile duct injury with lymphocytic infiltrate, periductal fibrosis, ductopenia, and bridging fibrosis (see comment). at 1044 Final Diagnosis Comment LABORATORY [facility] The patient is a 58 y/o female presented with elevated liver enzymes. LFT (05/09/2023): T Isaac 1.17, ALT 128, AST 96, ALP 794, GGT 326. LFT (05/20/2023): T Isaac 1.2, ALT 150, AST 142, ALP 883. Abdominal ultrasound: liver with coarse echotexture and subtle nodular contour, which could represent early cirrhosis. Serology testing for autoantibodies is pending at outside facility. The liver biopsy shows histologic changes (see microscopic description) consistent with a chronic biliary tract disorder in keeping with the cholestatic pattern of the liver function tests. Based on the prominent biliary fibro- obliterative changes, primary sclerosing cholangitis (PSC) is favored over primary biliary cholangitis (PBC). However, the histologic changes are nonspecific, and clinical correlation is needed to rule out secondary sclerosing cholangitis. Recommend cholangiography and correlation with routine viral serology and autoimmune serology results. The gastric biopsy contains a fragment of fundic gland mucosa showing diffuse infiltrating chronic inflammation with mild parietal cell loss, raising concern for early autoimmune gastritis. Immunohistochemical stains for gastrin, synaptophysin and chromogranin were performed on block A1, which showno significant hyperplasia of enterochromaffin-like (ECL) cells in the gastric body. The findings do not support a diagnosis of autoimmune gastritis. Gross Description LABORATORY [facility] A. Stomach. Received in formalin with a container labeled with "Syncano", "[id number]", "1965" and " random stomach". Received are 2 fragments of parsons tissue measuring 0.4 and 0.5 cm in greatest dimension. Specimen is entirely submitted in cassette A1. Gross By: JANENE B. Liver, Left lobe. Received in formalin with a container labeled with "Syncano", "[id number]", "1965" and " left liver lobe". Received are multiple parsons-brown soft tissue cores ranging from 0.1 to 2.8 cm in length, each less than 0.1 cm thick. The specimen is wrapped and submitted in cassette [id number]. Gross By: KB Microscopic Description LABORATORY [facility] The portal tracts show with mixed inflammatory infiltrate of lymphocytes, a few plasma cells, and occasional eosinophils. There are loose lymphoid aggregates and mild lymphocytic interface activity. Biliary interface activity with bile ductular reaction is present. Bile duct epithelial injury with focal lymphocytic infiltrate is present. No portal granulomas or florid bile duct lesions are identified. Several portal tracts show concentric "onion-skin" periductal fibrosis. Bile duct luminal obliteration and complete loss of bile ducts are prominent in most of the portal tracts. Bridging fibrosis is present. There is mild lobular chronic inflammation. Trichrome stain highlights the periductal fibrosis, portal and periportal fibrosis, and bridging fibrosis. Reticulin stain highlights the fibrosis and mildly distorted lobular architecture. Iron stain is negative. PAS-D stain is negative for intracytoplasmic globules. CK7 immunostain shows marked periportal metaplastic hepatocytes, ductular proliferation, and loss of interlobular bile ducts in more than 50% of the portal tracts. Rhodanine stain reveals copper deposition in periportal hepatocytes. ASSESSMENT: Rosie Castro is a 58 year old female referred by Nolvia Marrufo MD for further evaluation of PBC/PSC. Plan: 1. PBC/PSC overlap. Liver biopsy with features prominently of PSC but also some subtle features of PBC. Bridging fibrosis on liver biopsy. 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 She is on ursodiol at 15 mg/kg (500 mg/BID). ALP has improved from 800s to 300s. DEXA scan from 07/2023 with osteoporosis. Her DEXA scan was concerning for osteoporosis and she was seen by rheumatology who recommended Fosamax. They wanted her to wait until her teeth were pulled (dental work) for extractions and until vitamin D levels were back to normal as they were very lowat 19. Most recent check was 27 1 month ago.they have deferred to her PCP to start the osteoporosistreatment. Advised to follow up with them for this. Discussed that she will need yearly MRCP for cholangiocarinoma and gallbladder cancer screening. MRI from 07/2023 without any concerning findings. In addition will alternate with abdominal US as she needs HCC screening with AFP every 6 months given bridging fibrosis/cirrhosis seen on biopsy and imaging. Abdominal US ordered for January. Will need EGD every 2 years (just had done 06/2023 so due again around 06/2025). MELD labs every 3-6 months. Will check LFTs monthly for now. Discussed forms of decompensation to watch out for (ascites, HE, GI bleeding), and risk of HCC and other cancers including gallbladder and cholangiocarcinoma. No issues with pruritus at this time. Previously she had issues but this has since resolved. Her vitamin A levels were low and she was supplemented for 3 months.Her repeat vitamin A levels are currently in process. 2. Vaccination. Labs show she has immunity against hepatitis A but not B. Recommend vaccination series through PCP. 3. Colorectal cancer screening. Discussed she is at increased risk of IBD and colorectal cancer with PSC. Colonoscopy 07/2023 with 1 HP polyp removed. Repeat again in 5 years. 4. I have advised the patient to abstain from drinking alcohol. The health risks imposed by heavy alcohol intake were discussed in detail. Given she has cirrhosis she can not drink any alcohol at all. 5. 6 month follow up Cecy Zavala DO Gastroenterology and Hepatology I spent a total of 35 minutes on the date of service in review of patient's record, and previously obtained information in person and appropriate medical visit, discussion and education of plan, withpatient and/or caregiver, placing orders for tests/referral/procedures as medically necessary and documentation of pertinent clinical information in patient's medical records for their visit today. 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) Expected: 01/31/2024, Expires: 11/30/2024 Scheduled Procedures Name Priority Associated Diagnoses Date/Ti [...] D LEVEL ONCE IN A LIFETIME-USE SMARTSET# [id number] Completed 09/27/2023, 07/12/2023 HPV (Gardasil) Vaccine Aged Out No lo nger eligible based on patient's age to complete this topic MENINGOCOCCAL (MENACTRA/MENVEO) Aged Out No longer eligible b ased on patient's age to complete this topic documented as of this encounter Medical Devices Not on filedocumented as of this encounter Visit Diagnoses Diagnosis Primary biliary cholangitis (HCC)- Primary PSC (primary sclerosing cholangitis) Cholangitis documented in this encounter Care Teams Casey Saw Operator Relationship Specialty Start Date End Date Mary Grace Walker CRNP [address] [place] [address] [place] [address] PCP - General Nurse Practitioner 06/28/23 documented as of this encounter
--- OUTSIDE RECORDS SUMMARY | 2024-01-06 03:12 | External Medical Summary | Summary of Care ---
Author Name Unknown Organization [facility] Address [address] [facility] [place] [address] Phone [phone] Care Team Providers Care Accounts Payable Technician Name Role Phone Mary Grace Walker Primary Care Provider + Reason for Visit * Reason Onset Date Comments Test Results 07/18/2023 Encounter Details Date Type Department Care Team (Late st Contact Info) Description 07/18/2023 Telephone Hepatology, [facility] [address] [place] [address] Cecy Zavala DO [address] [place] [id number] Test Results Allergies No known active allergiesdocumented as of this encounter (statuses as of 07/18/2023) Medications Medication Sig Dispensed Refills Start Date End Date Status fluticasone (FLONASE) 50 MCG/ACT nasal spray 0 06/01/2017 Active traMADol (ULTRAM) 25 MG Tablet Take 0.5 Tablets by mouth every 6 hours as needed for Pain. 0 Active naproxen (NAPROSYN) 500 MG Tablet Take 1 Tablet by mouth 2 times a day with morning and evening meals. 0 Active Escitalopram Oxalate 10 MG Oral Tablet (Lexapro) Take 1 Tablet by mouth daily. Takes in the evening 0 Active Sertraline HCl 50 MG Oral Tablet (Zoloft) 1 Tablet daily. Takes at night 0 05/26/2023 Active Ursodiol 500 MG Oral TabletIndications:PS C (primary sclerosing cholangitis),Primary biliary cholangitis (HCC),Cirrhosis of liver without ascites, unspecified hepatic cirrhosis type (HCC) Take 1 Tablet by mouth 2 times a day with morning and evening meals. 180 Tablet 2 07/12/2023 Active Vitamin D (Ergocalciferol) 18825 UNIT Oral CapsuleIndications:O steoporosis without current pathological fracture, unspecified osteoporosis type,Vitamin D deficiency Take 50,000 Units by mouth once a week. 8 Capsule 0 07/13/2023 Active Vitamin A 3 MG (79323 UT) Oral TabletIndications:Vi tamin A deficiency Take 3 mg by mouth every evening. 90 Tablet 1 07/18/2023 10/16/2023 Active documented as of this encounter (statuses as of 07/18/2023) Social History Tobacco Use Types Packs/Day Years Used Date Smoking Tobacco: Never Smokeless Tobacco: Never Alcohol Use Standard Drinks/Week Comments Not Asked 0 (1 standard drink = 0.6 oz pur e alcohol) Occassional Last New years Sex and Gender Information Value Date Recorded Sex Assigned at Not on file Gender Identity Not on file Sexual Orientation Not on file Job Start Date Occupation Industry Not on file Not on file Not on file documented as of this encounter Miscellaneous Notes * Telephone Encounter - Klaudia Granados RN - 07/18/2023 10:25 AM EDT No answer. LM requesting return call. * Telephone Encounter - Cecy Zavala DO - 07/18/2023 10:19 AM EDT Please let patient know her vitamin A levels were also found to be low. In addition to the vitamin D I already sent to her pharmacy, I also sent a prescription for vitamin A. She should take this daily for 3 months and then we will repeat levels again in 3 months to see if she requires further suppl ementation. Vitamin A lab to be checked in October has been ordered. Cecy Zavala DO documented in this encounter Plan of Treatment Upcoming Encounters Date Type Department Care Team (Late st Contact Info) Description 07/19/2023 3:00 PM EDT Office Visit Rheumatology [facility] [address] [facility] [place] [address] Yogesh Bae PA-C [address] [address] 08/05/2023 7:30 AM EDT [facility] [address] [facility] [place] [address] 10/31/2023 1:40 PM EDT Office Visit [facility], [facility] [place] [address] Cecy Zavala DO [address] [place] [address] Scheduled Orders Name Type Priority Associated Diagnoses Orde r Schedule VITAMIN A (RETINOL) Lab Routine Vitamin A deficiency Expected: 10/18/2023, Expires: 07/17/2024 Health Maintenance Due Date Last Done Comments [...] Influenza Vaccine (FLU shot) (Season Ended) 2023 Diabetes Screening 07/11/2026 07/12/2023 Colonoscopy 07/13/2033 07/14/2023, 07/14/2023 Colorectal Cancer Screening 07/13/2033 GARDASIL-HPV IMMUNIZATION SERIES Aged Out No longer eligible b ased on patient's age to complete this topic MENINGOCOCCAL (MENACTRA/MENVEO) Aged Out No longer eligible b ased on patient's age to complete this topic documented as of this encounter Medical Devices Not on filedocumented as of this encounter Visit Diagnoses Diagnosis Vitamin A deficiency- Primary Unspecified vitamin A deficiency documented in this encounter Care Teams Accounts Payable Technician Relationship Specialty Start Date End Date Mary Grace Walker CRNP [address] [place] [address] [place] [address] PCP - General Nurse Practitioner 06/28/23 documented as of this encounter
--- OUTSIDE RECORDS SUMMARY | 2024-01-06 03:12 | External Medical Summary ---
Author Name Unknown Address Unknown Organization K01:[facility] [address] [place] [address] [place] [address] Laboratory Report Ordering Provider Test Date Status VIKKI HEBERT 09/27/2023 17:10:14 Final Observation Date Value Abnormality Reference (Units ) Status T4, Free 09/27/2023 17:10:14 0.9 0.9-1.7 (n g/dL) Final Performing Location [facility] [address] [facility] [address]
--- OUTSIDE RECORDS SUMMARY | 2024-01-06 03:12 | External Medical Summary ---
Author Name Unknown Address Unknown Organization K01[facility] [place] [address] [place] [address] Laboratory Report Ordering Provider Test Date Status VIKKI HEBERT 09/27/2023 17:10:14 Final Deficient: <20 ng/mL
Ins ufficient: 20-29 ng/mL
Recommended/Optimum:30-50 ng/mL

Vitamin D intoxication is rare. If suspicious of Vitamin D toxicity, evaluation of serum Calcium and PTH is recommended. Observation Date Value Abnormality Reference (Units ) Status 25-OH Vitamin D total 09/27/2023 17:10:14 27 >19 (ng/mL) Final Performing Location [facility] [address] [facility] [address]
--- OUTSIDE RECORDS SUMMARY | 2024-01-06 03:12 | External Medical Summary | Summary of Care ---
Author Name Unknown Organization [facility] Address [address] [place] [address] Phone [phone] Care Team Providers Care Air Quality Specialist Name Role Phone Mary Grace Walker Primary Care Provider + Reason for Visit * Reason Comments NEW PATIENT Referred by Cecy gordillo for [facility] * Evaluate & Treat - Unlimited Visits (Within 10 days (routine)) - Pending Review Specialty Diagnoses / Procedures Referred By Von friedman Referred To Contact Rheumatology Diagnoses Osteoporosis without current pathological fracture, unspecified osteoporosis type Cecy Zavala DO [address] [place] [address] Referral ID Status Reason Start Date Expiration Date Visits Requested Visits Authorized [id number] Pending Review Specialty Services Required 07/13/[phone] Encounter Details Date Type Department Care Team (Late st Contact Info) Description 07/19/2023 3:00 PM EDT Office Visit Rheumatology [facility] [address] [place] [address] Yogesh Bae PA-C [address] [place] [address] Other osteoporosis without current pathological fracture* Allergies No known active allergiesdocumented as of this encounter (statuses as of 07/19/2023) Medications Medication Sig Dispensed Refills Start Date End Date Status traMADol (ULTRAM) 25 MG Tablet Take 0.5 Tablets by mouth every 6 hours as needed for Pain. 0 Active Escitalopram Oxalate 10 MG Oral Tablet (Lexapro) Take 1 Tablet by mouth daily. Takes in the evening 0 Active Ursodiol 500 MG Oral TabletIndications: PSC (primary sclerosing cholangitis),Prima ry biliary cholangitis (HCC),Cirrhosis of liver without ascites, unspecified hepatic cirrhosis type (HCC) Take 1 Tablet by mouth 2 times a day with morning and evening meals. 180 Tablet 2 07/12/2023 Active Vitamin D (Ergocalciferol) 26380 UNIT Oral CapsuleIndications :Osteoporosis without current pathological fracture, unspecified osteoporosis type,Vitamin D deficiency Take 50,000 Units by mouth once a week. 8 Capsule 0 07/13/2023 Active fluticasone (FLONASE) 50 MCG/ACT nasal spray 0 06/01/2017 07/19/2023 Discontinued (Medication List Clean Up) naproxen (NAPROSYN) 500 MG Tablet Take 1 Tablet by mouth 2 times a day with morning and evening meals. 0 07/19/2023 Discontinued (Medication List Clean Up) Sertraline HCl 50 MG Oral Tablet (Zoloft) 1 Tablet daily. Takes at night 0 05/26/2023 07/19/2023 Discontinued (Medication List Clean Up) Vitamin A 3 MG (10360 UT) Oral TabletIndications: Vitamin A deficiency Take 3 mg by mouth every evening. 90 Tablet 1 07/18/2023 07/19/2023 Discontinued (Medication List Clean Up) documented as of this encounter (statuses as of 07/19/2023) Active Problems Problem Noted Date Diagnosed Date Other osteoporosis without current pathological fracture 07/19/2023 documented as of this encounter (statuses as of 07/19/2023) Social History Tobacco Use Types Packs/Day Years Used Date Smoking Tobacco: Never Smokeless Tobacco: Never Tobacco Cessation:Counseling Given: Not Answered Alcohol Use Standard Drinks/Week Comments Not Asked [...] Sign Reading Time Taken Comments Blood Pressure - - Pulse - - Temperature 36.7 C (98 F) 07/19/2023 3:02 PM EDT Respiratory Rate - - Oxygen Saturation - - Inhaled Oxygen Concentration - - Weight 71.2 kg (157 lb) 07/19/2023 3:02 PM EDT Height - - Body Mass Index 26.95 07/14/2023 7:40 AM EDT documented in this encounter Patient Instructions * Patient Instructions* Yogesh Bae PA-C - 07/19/2023 3:41 PM EDT Medication Information: Bisphosphonates The following information was verbally provided to the patient and afterwards, a copy of the ACR medication guide was provided to supplement with more extensive information: Alendronate (Fosamax), is within a class of medication known as Bisphosphonates, which work to reduce the activity of osteoclasts, a bone cell that is responsible for the removal of old bone. Ultimately, this medication serves to preserve bone density and bone strength. If your medication is a tablet to take orally, it will be taken either weekly or monthly and it is recommended that taken first thing in the morning on an empty stomach with an 8 oz glass of water and no other beverage. You mustremain upright (sitting or standing--no lying down) for 30 minutes after taking the medication. Do not take any additional medications, beverages or food for 45-60 minutes after taking the medication. If your medication is to be administered via an IV, it will be given every 1-2 years depending on your diagnosis. The duration of this treatment will depend on your diagnosis, fracture risk, and your discussion with your physician. It is highly recommended to take a Vitamin D supplement and adequate intake of calcium from the diet or the possibility of taking calcium supplements while on this med ication. The most common side effects for oral bisphosphonates include but are not limited to muscle cramps/pain, pain with swallowing, heartburn, abdominal pain, nausea, headache, and/or rash. The most common side effects for IV bisphosphonates include but are not limited to low blood pressure, dizziness, f atigue, headaches, muscle pain, weakness, GI symptoms (nausea and constipation), fever and/or rash. These side effects may last 1 to 2 days and up to 10 to 12 days after your infusion. More serious side effects include but are not limited to: osteonecrosis of the jaw (so dental exams prior to medication initiation are recommended), bone/joint/muscle pain, gastrointestinal irritation, renal impairment, hypocalcemia, and atypical femur fractures. Please make your physician aware if you have kidney/liver damage, history of femoral fractures, hypocalcemia, history of bariatric surgery, history of esophageal stricture or achalasia, on medications for GERD, or if you have new or changed medications on your medication list as these factors may impact your care plan. It is also imperative that you inform your physician if you are or planning to become . For your safety, we will monitor you routinely through a series of blood work and a DEXA scan to evaluate your bone density. For further inquiries, please refer to the medication information provided to you as well as your rheumatology care team. Vitamin D Level < 20 50,000 units twice weekly x 30 doses Level 20-30 50,000 units once weekly x 15 doses Level 30-35 800- 1,000 units QD (OTC) Level normal Level > 60 Provider referral Calcium (Post-Menopausal) Women 1,200 mg QD (600 mg BID) Men 1,000 mg PO (500 mg BID) Types of Calcium Calcium citrate Can be taken with or without food Calcium carbonate Absorbed better with meals Dietary Calcium Milk, cheese, yogurt, as well as green vegetables, such as kale and broccoli, oranges, beans, almonds documented in this encounter Nursing Notes * Samina Francisco LPN - 07/19/2023 3:00 PM EDT Chief Complaint Patient presents with NEW PATIENT Referred by Cecy Zavala for HIROC documented in this encounter Plan of Treatment Upcoming Encounters Date Type Department Care Team (Late st Contact Info) Description 08/05/2023 7:30 AM EDT Imaging Radiology [facility] [address] [address] [place] [address] 10/31/2023 1:40 PM EDT Office Visit Hepatology, [facility] [address] [place] [address] Cecy Zavala DO [address] [place] [address] Scheduled Referrals Name Type Priority Associated Diagnoses Orde r Schedule HIGH RISK OSTEOPOROSIS CLINIC REFERRAL OP Referral Within 10 days (routine) Osteoporosis without current pathological fracture, unspecified osteoporosis type Ordered: 07/13/2023 Health Maintenance Due Date Last Done Comments [...] Vaccine (1 - 2022-2 4 season) 2022 Influenza Vaccine [...] as of this encounter Visit Diagnoses Diagnosis Other osteoporosis without current pathological fracture- Primary documented in this encounter Care Teams Air Quality Specialist Relationship Specialty Start Date End Date Mary Grace Walker CRNP [address] [place] [address] [place] [address] PCP - General Nurse Practitioner 06/28/23 documented as of this encounter
--- OUTSIDE RECORDS SUMMARY | 2024-01-06 03:12 | External Medical Summary | Summary of Care ---
Author Name Unknown Organization [facility] Address [address] [place] [address] Phone [phone] Care Team Providers Care Venetian Blind Worker Name Role Phone Mary Grace Walker Primary [...] type Cecy Zavala DO [address] [place] [address] Referral ID Status Reason Start Date Expiration Date Visits Requested Visits Authorized [id number] Pending Review Specialty Services Required 07/13/[phone] Encounter Details Date Type Department Care Team (Late st Contact Info) Description 07/19/2023 3:00 PM EDT Office Visit Rheumatology [facility] [address] [place] [address] Yogesh Bae PA-C [address] [place] [address] Other osteoporosis without current pathological fracture* Allergies [...] Tablet 2 07/12/2023 Active Vitamin D (Ergocalciferol) 90737 UNIT Oral CapsuleIndications :Osteoporosis without current pathological [...] List Clean Up) Vitamin A 3 MG (01348 UT) Oral TabletIndications: Vitamin A deficiency Take [...] oranges, beans, almonds documented in this encounter Progress Notes * Yogesh Bae PA-C - 07/19/2023 3:05 PM EDT CONSULT - [facility] ([facility]) - baseline visit Supervised by: Dr. Gadiel Sams REASON FOR CONSULT: High Risk DXA Scan: High Risk DXA Scan (T-Score below -2.5) and treatment naive HPI: This is a 58 year old year old female seen at the request of Dr. Zavala for evaluation and treatment of High Risk Osteoporosis.Screening occurred after diagnoses of PSC/PBC. No previous treatment. Review of Systems: All other review of systems reviewed and negative other than mentioned in HPI. MEDICATIONS: Current Outpatient Medications Medication Sig Dispense Refill [...] meals. 180 Tablet 2 Vitamin D (Ergocalciferol) 12026 UNIT Oral Capsule Take 50,000 Units by mouth once a week. 8 Capsule 0 No current facility-administered medications for this visit. PAST MEDICAL HISTORY: No past medical history on file. PAST SURGICAL HISTORY: Past Surgical History: Procedure Laterality Date COLONOSCOPY, DIAGNOSTIC (RECTUM) 07/14/2023 COLONOSCOPY FLEXIBLE PROXIMAL DIAGNOSTIC performed by Cecy Zavala DO at ENDOSCOPY [facility] EGD, FLEXIBLE, DIAGNOSTIC 06/28/2023 ESOPHAGOGASTRODUODENOSCOPY (EGD), FLEXIBLE, TRANSORAL, DIAGNOSTIC performed by Nolvia Marrufo MD at ENDOSCOPY [facility] EGD, W/ENDOSCOPIC US 06/28/2023 biopsies show mild irritation of stomach, liver show chronic cholestatic liver disease/ESOPHAGOGASTRODUODENOSCOPY (EGD), FLEXIBLE, TRANSORAL, ENDOSCOPIC ULTRASOUND performed by Nolvia Marrufo MDat ENDOSCOPY [facility] Bilateral Oophorectomy SOCIAL HISTORY: Social History Tobacco Use Smoking status: Never Smokeless tobacco: Never Vaping Use Vaping Use: Never used Substance Use Topics Drug use: Not Currently PHYSICAL EXAM: Goiter: No Kyphosis: No Neuromuscular Stability: Normal Quadricep Strength: 5/5 Lungs: normal Heart: normal BONE HEALTH SUMMARY: RISKS: Family History Fx: No Personal History Fx: No Current Smoker: No Weight <127 lbs: No Falls: No Past Medical History of: Pulmonary Emboli, kidney stones PREVENTION: Exercise: 3 or more times weekly: No Nutrition: eats calcium rich foods: Yes Calcium and Vitamin D in adequate doses: Yes DIAGNOSTIC TESTING: LABS: The following labs were reviewed and results were satisfactory: Latest Reference Range & Units 07/12/23 10:48 Sodium 135 - 146 mmol/L 141 Potassium 3.5 - 5.1 mmol/L 4.8 Chloride 98 - 107 mmol/L 103 CO2 22 - 32 mmol/L 27 BUN 6 - 20 mg/dL 14 Creatinine 0.5 - 1.0 mg/dL 0.8 Estimated Glomerular Filtration Rate >=60 mL/min 84 Anion Gap 7 - 15 mmol/L 11 Glucose 70 - 120 mg/dL 94 Calcium 8.4 - 10.2 mg/dL 9.7 Protein 6.0 - 8.3 g/dL 7.9 Alpha-Fetoprotein Tumor Marker 0.0 - 8.3 ng/mL 2.1 Vitamin A (Retinol) 38 - 98 mcg/dL 23 (L) INR 0.8 - 1.2 0.9 Prothrombin Time 11.6 - 15.2 seconds 11.9 25-Hydroxy Vitamin D >19 ng/mL 19 (L) 25-HYDROXY VITAMIN D Rpt ! CBC Rpt WBC 4.00 - 10.80 K/uL 4.50 RBC 3.85 - 5.15 M/uL 4.32 HGB 12.0 - 15.3 g/dL 13.8 HCT 36.0 - 45.2 % 41.4 MCV 81.5 - 97.5 fL 95.8 MCH 27.0 - 34.0 pg 31.9 MCHC 32.0 - 36.0 g/dL 33.3 RDW 11.5 - 15.5 % 15.5 PLT 140 - 400 K/uL 199 MPV 6.6 - 11.1 fL 9.2 CBC WITH WBC DIFFERENTIAL Rpt Absolute Neutrophils 1.80 - 7.70 K/uL 2.53 Absolute Lymphocytes 1.00 - 4.80 K/ul 1.43 Absolute Monocytes 0.00 - 1.10 K/uL 0.30 Absolute Eosinophils 0.00 - 0.70 K/uL 0.22 Absolute Basophils 0.00 - 0.20 K/uL 0.02 Albumin 3.8 - 5.0 g/dL 4.1 AST 10 - 35 U/L 199 (H) ALT 10 - 35 U/L 219 (H) Alkaline Phosphatase 35 - 130 U/L 871 (H) Bilirubin, Total <=1.2 mg/dL 1.4 (H) Bilirubin, Direct 0.0 - 0.3 mg/dL 0.6 (H) (L): Data is abnormally low !: Data is abnormal (H): Data is abnormally high Rpt: View report in Results Review for more information DXA: DXA from 07/12/23 was reviewed with Ms. Castro. RESULTS: Lumbar spine: INVALID Left femoral neck: 0.562 gms/cm2 T-score: -2.6 Z-score: -1.4 FRAX not indicated. TREATMENTS: Previous Osteoporosis Treatment: None ASSESSMENT: 58 year old year old female with who is at high fracture risk and at future risk of morbidity and mortality from osteoporosis. PLAN: Patient referred for consult and treatment. The following items are ordered and/or in progress: 1. Osteoporosis education was provided by the [facility] team (topics included disease process, DXA, calcium/vitamin D, osteoporosis medications, weight bearing exercise, fall prevention/safety). 2. Prevention: . Eye Examination recommended annually, as good vision may help to prevent falls . Exercise recommended: standing, walking, light lifting . Fall Prevention/Safety Education recommended and discussed . Continue calcium rich foods (goal of 3 servings daily) 3. Osteoporosis medications: Fosamax 70 mg once weekly (take it first thing in the morning on an empty stomach with large glass of water - and wait 30 min sitting or standing, prior to eating or drinking anything else) Would recommend oral therapy above once she has dental work completed and once vitamin D is back tobaseline. Currently 19. On replacement. Can recheck in October and if between 30-50 can start therapy above. Dexa two years from previous. 4. Followup: Refer back to PCP for osteoporosis care. We would be happy to see this patient again in [facility] if the patient requires alternative treatment. Yogesh Bae PA-C [facility] Team Cc: PCP: MARY GRACE WALKER [address] [place] [address] The patient was discussed with me. I agree with the findings and plan as documented by Yogesh MICHEL in this note. Gadiel Sams MD Rheumatology Department documented in this encounter Nursing Notes * Samina Francisco LPN - 07/19/2023 3:00 PM EDT Chief Complaint Patient presents with NEW PATIENT Referred by Cecy Zavala for [facility] documented in this encounter Plan of Treatment Upcoming Encounters Date Type Department Care Team (Late st Contact Info) Description 08/05/2023 7:30 AM EDT Imaging Radiology [facility] [address] [facility] [place] [address] [place] [address] 10/31/2023 1:40 PM EDT Office Visit Hepatology, [facility] [address] [place] [address] Cecy Zavala DO [address] [place] [address] Scheduled Referrals Name Type Priority Associated Diagnoses [...] 07/11/2025 07/12/2023 Diabetes Screening 07/11/2026 07/12/2023 Colonoscopy 07/13/2033 07/14/2023, 07/14/2023 Colorectal Cancer Screening 07/13/2033 VITAMIN D LEVEL ONCE IN A LIFETIME-USE SMARTSET# [id number] Completed 07/12/2023 GARDASIL-HPV IMMUNIZATION SERIES Aged Out [...] Primary documented in this encounter Care Teams Venetian Blind Worker Relationship Specialty Start Date End Date Mary Grace Walker CRNP [address] [place] [address] [place] [address] PCP - General Nurse Practitioner 06/28/23 documented as of this encounter
--- OUTSIDE RECORDS SUMMARY | 2024-01-06 03:13 | External Medical Summary | Summary of Care ---
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 of liver without ascites, unspecified hepatic cirrhosis type (HCC) Procedures MRI ABDOMEN WO CONTRAST Cecy Zavala DO [address] [place] [address] Referral ID Status Reason Start Date Expiration Date V isits Requested Visits Authorized [id number] Pending Review 07/12/2023 999 999 Reason for Visit * Reason Comments NEW PATIENT * Evaluate & Treat - Unlimited Visits (Within 3 days (urgent)) - Pending Review Specialty Diagnoses / Procedures Referred By Von friedman Referred To Contact Gastroenterology Diagnoses Primary biliary cholangitis (HCC) Nolvia Marrufo MD [address] [place] [address] Referral ID Status Reason Start Date Expiration Date Visits Requested Visits Authorized [id number] Pending Review Specialty Services Required 07/07/2023 999 999 Encounter Details Date Type Department Care Team (Late st Contact Info) Description 07/12/2023 9:40 AM EDT Office Visit Hepatology, [facility] [address] [place] [address] Cecy Zavala DO [address] [place] [address] PSC (primary sclerosing cholangitis)*; Primary biliary cholangitis (HCC); Cirrhosis of liver without ascites, unspecified hepatic cirrhosis type (HCC); Screen for colon cancer; Abnormal findings on diagnostic imaging of limbs Allergies No known active allergiesdocumented as of this encounter (statuses as of 07/12/2023) Medications Medication Sig Dispensed Refills Start Date [...] 0 05/26/2023 Active Ursodiol 500 MG Oral TabletIndications:PSC (primary sclerosing cholangitis),Primary biliary cholangitis (HCC),Cirrhosis of liver without ascites, unspecified hepatic cirrhosis type (HCC) Take 1 Tablet by mouth 2 times a day with morning and evening meals. 180 Tablet 2 07/12/2023 Active documented as of this encounter (statuses as of 07/12/2023) Social History Tobacco Use Types Packs/Day Years [...] Sign Reading Time Taken Comments Blood Pressure 132/82 07/12/2023 9:31 AM EDT Pulse 51 07/12/2023 9:31 AM EDT Temperature 36.5 C (97.7 F) 07/12/2023 9:31 AM ED T Respiratory Rate 18 07/12/2023 9:31 AM EDT Oxygen Saturation 97% 07/12/2023 9:31 AM EDT Inhaled Oxygen Concentration - - Weight 71.1 kg (156 lb 12.8 oz) 07/12/2023 9:31 AM EDT Height 162.6 cm (5' 4") 07/12/2023 9:31 AM EDT Body Mass Index 26.91 07/12/2023 9:31 AM EDT documented in this encounter Progress Notes * Cecy Zavala, DO - 07/12/2023 9:31 AM EDT Images from the original note were not included. CC: PSC/PBC HPI: Rosie Castro is a 58 year old female referred by Nolvia Marrufo MD for further evaluation of PBC/PSC. Patient was initially referred to him by [facility] for abnormal LFTs for a liver biopsy. 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 The liver biopsy shows histologic changes consistent with a chronic biliary tract disorder in keeping with the cholestatic pattern of the liver function tests. Based on the prominent biliary fibro- obliterative changes, primary sclerosing cholangitis (PSC) is favored over gregory kathy biliary cholangitis (PBC). However, the histologic changes [...] be markedly elevated. Called her doctor in [place] and she was told to go to the hospital because her LFTs were very high and platelets were low. Then she was referred to [facility] GI and that resulted in the [...] Denies any other OTC or herbal supplements. She states she has never had a colonoscopy before but she was given a Cologuard test through her PCP that she has at home to take. No family history of colon or rectal cancer. She does note some fatigue but also feels this may be because she works a lot (worked 15 hours yesterday). She was also having a lot of pruritus but this improved after she was started on Zoloft 50 gm daily that she states she was actually started on for anxiety as she thought her itching was due to being anxious. No past medical history on file. Current Outpatient Medications Medication Sig Dispense Refill traMADol (ULTRAM) 25 MG Tablet Take 0.5 Tablets by mouth every 6 hours as needed for Pain. naproxen (NAPROSYN) 500 MG Tablet Take 1 Tablet by mouth 2 times a day with morning and evening meals. Escitalopram Oxalate 10 MG Oral Tablet (Lexapro) Take 1 Tablet by mouth daily. Takes in the evening Sertraline HCl 50 MG Oral Tablet (Zoloft) 1 Tablet daily. Takes at night Ursodiol 500 MG Oral Tablet Take 1 Tablet by mouth 2 times a day with morning and evening meals. 180 Tablet 2 fluticasone (FLONASE) 50 MCG/ACT nasal spray (Patient not taking: Reported on 06/23/2023) No current facility-administered medications for this visit. Review of patient's allergies indicates: No Known Allergies Social History Socioeconomic History Marital status: Spouse name: Not on file Number of children: Not on file Years of education: Not on file Highest education level: Not on file Occupational History Not on file Tobacco Use Smoking status: Never Smokeless tobacco: Never Vaping Use Vaping Use: Never used Substance and Sexual Activity Alcohol use: Not on file Comment: Occassional Last New years Drug use: Not Currently Sexual activity: Not on file Other Topics Concern Not on file Social History Narrative Not on file Social Determinants of Health Financial Resource Strain: Not on file Food Insecurity: Not on file Transportation Needs: Not on file Physical Activity: Not on file Stress: Not on file Social Connections: Not on file Intimate Partner Violence: Not on file Housing Stability: Not on file No family history on file. Review of Systems: Constitutional: No report of fever, chills, night sweats. There have been no non-intentional weightchanges. Eyes: No recent changes in visual acuity or blurring of vision. ENT: No change in auditory acuity, sense of smell or taste. CV: No chest pain, palpitations, dyspnea on exertion. Respiratory: No wheezing, cough, sputum production. : No dysuria, polyuria, change in urinary frequency. GI: Per HPI, otherwise negative. Psychiatric: No chronic changes in mood, affect or sensorium. Musculoskeletal: No myalgias, arthralgias, or joint pains. Neurological: No change in gait, change in maintenance of balance, neurologic injuries. Physical Exam Constitutional: BP 132/82 (BP Position: Sitting, BP Cuff Size: Regular) | Pulse 51 | Temp 36.5 C (97.7 F) (Skin) | Resp 18 | Ht 1.626 m (5' 4") | Wt 71.1 kg (156 lb 12.8 oz) | SpO2 97% | BMI 26.91 kg/m | BSA 1.79 m Well developed, well nourished female in no apparent distress. Eyes: Conjunctivae and sclerae are clear and non-icteric. CV: Heart is regular without murmur, rub or aida. Pulm: Clear to percussion and auscultation. GI: Abdomen is soft, non-tender, with normo-active bowel sounds in all four quadrants. No hepatosplenoegaly is appreciated. No masses are palpated. No guarding or rebound is noted. Psychiatric: The patient is alert and oriented in all four spheres. Mood is euthymic. Affect is appropriate for the situation. Skin: No rashes were noted. Musculoskeletal: Gait is normal. Patient is able to transfer from sitting position to exam table without assistance. Labs: Reviewed Imaging: Reviewed Abdominal US 06/02/2023: Procedures: Reviewed EGD 06/28/2023: Impression: - Normal esophagus. - [...] endosonographically normal. Liver biopsy 06/28/2023: SURGICAL PATHOLOGY: [id number] Component Resulting Agency Final Diagnosis A. Stomach, biopsy: Gastric antral and fundic gland mucosa with chronic gastritis. Negative for H. pylori (negative immunohistochemical stain). B. Liver, left lobe, biopsy: Chronic cholestatic liver disease with portal chronic inflammation, bile duct injury with lymphocytic infiltrate, periductal fibrosis, ductopenia, and bridging fibrosis (see comment). at 1044 Final Diagnosis Comment [facility] The patient is a 58 y/o female [...] in formalin with a container labeled with "Rosie Castro", "[id number]", "1965" and " random stomach". Received are 2 fragments of parsons tissue measuring 0.4 and 0.5 cm in greatest dimension. Specimen is entirely submitted in cassette A1. Gross By: KB B. Liver, Left lobe. Received in formalin with a container labeled with "Rosie Castro", "[id number]", "1965" and " left liver lobe". Received are multiple parsons-brown soft tissue cores ranging from 0.1 to 2.8 cm in length, each less than 0.1 cm thick. The specimen is wrapped and submitted in cassette [id number]. Gross By: KB Microscopic Description [facility] [place] The portal tracts show with mixed [...] but also some subtle features of PBC. 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 Will start ursodiol at 15 mg/kg (500 mg/BID). Will obtain DEXA scan and check for fat soluble vitamin deficiencies. Discussed that she will need yearly MRCP for cholangiocarinoma and gallbladder cancer screening.IN addition will alternate with abdominal US as she needs HCC screening with AFP every 6 months given bridging fibrosis/cirrhosis seen on biopsy and imaging. Will need EGD every 2 years (just had done 06/2023 so due again around 06/2025). MELD labs every 3-6 months. Will check LFTs monthly for now. Discussed forms of decompensation to watch out for (ascites, HE, GI bleeding), and risk of HCC and other cancers including gallbladder and cholangiocarcinoma. Her pruritus is well controlled on Zoloft 50 mg daily. Advised her that is it worsens again we can increase the dose of this as she is only arvin very low dose for pruritus and add atarax if needed. 2. Vaccination. Labs show she has immunity against hepatitis A but not B. Recommend vaccination series through PCP. 3. Colorectal cancer screening. Discussed she is at increased risk of IBD and colorectal cancer with PSC and I recommend a colonoscopy over a Cologuard since she is high risk. She is agreeable to colonoscopy. Order placed today and she will schedule. 4. I have advised the patient to abstain from drinking alcohol. The health risks imposed by heavy alcohol intake were discussed in detail. Given she has cirrhosis she can not drink any alcohol at all. 5. 3 month follow up Cecy Zavala DO Gastroenterology and Hepatology I spent a total of 50 minutes on the date of service in review of patient's record, and previously obtained information in person and appropriate medical visit, discussion and education of plan, withpatient and/or caregiver, placing orders for tests/referral/procedures as medically necessary and documentation of pertinent clinical information in patient's medical records for their visit today. documented in this encounter Nursing Notes * Patti Huerta LPN - 07/12/2023 9:30 AM EDT Patient identified by full name and date of New patient referral fromDr Abdulsamed S/p liver biopsy 06/28/23 documented in this encounter Plan of Treatment Upcoming Encounters Date Type Department Care Team (Latest Contact Info) Description 07/12/2023 10:50 AM EDT Laboratory Laboratory, [facility] [address] [place] [phone] [facility] [address] [place] [address] 07/12/2023 2:30 PM EDT [address] [address] 07/14/2023 8:15 AM EDT Hospital Encounter ENDO [facility], Endoscopy Room [facility] [address] [place] [id number] Cecy Zavala DO [address] [place] [address] 07/14/2023 8:15 AM EDT - 07/14/2023 8:45 AM EDT Surgery ENDO [facility], Endoscopy Room [facility] [address] [place] [id number] Cecy Zavala DO [address] [place] [address] COLONOSCOPY FLEXIBLE PROXIMAL DIAGNOSTIC 08/05/2023 7:30 AM EDT Imaging Radiology [facility] [address] [place] [address] 10/31/2023 1:40 PM EDT Office Visit Hepatology, [facility] [address] [place] [address] Cecy Zavala DO [address] [place] [address] Scheduled Orders Name Type Priority Associated Diagnoses Orde r Schedule MRI ABDOMEN WO CONTRAST Medical Imaging Routine 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 of liver without ascites, unspecified hepatic cirrhosis type (HCC) Expected: 07/12/2023, Expires: 08/11/2024 VITAMIN A (RETINOL) Lab Routine 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 of liver without ascites, unspecified hepatic cirrhosis type (HCC) Expected: 07/12/2023, Expires: 07/11/2024 25-HYDROXY VITAMIN D Lab Routine 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 of liver without ascites, unspecified hepatic cirrhosis type (HCC) Expected: 07/12/2023, Expires: 07/11/2024 VITAMIN E (TOCOPHEROL) Lab Routine 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 of liver without ascites, unspecified hepatic cirrhosis type (HCC) Expected: 07/12/2023, Expires: 07/11/2024 VITAMIN K Lab Routine 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 of liver without ascites, unspecified hepatic cirrhosis type (HCC) Expected: 07/12/2023, Expires: 07/11/2024 DEXA SCAN/BONE MINERAL AXIAL Medical Imaging Routine 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 of liver without ascites, unspecified hepatic cirrhosis type (HCC) Abnormal findings on diagnostic imaging of limbs Ordered: 07/12/2023 HEPATIC FUNCTION PANEL Lab Routine 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 of liver without ascites, unspecified hepatic cirrhosis type (HCC) Every Month for 12 Occurrences starting 07/12/2023 until 07/11/2024 PT INR Lab Routine 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 of liver without ascites, unspecified hepatic cirrhosis type (HCC) Expected: 07/12/2023, Expires: 07/11/2024 ALPHA-FETOPROTEIN TUMOR MARKER Lab Routine 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 of liver without ascites, unspecified hepatic cirrhosis type (HCC) Expected: 07/12/2023, Expires: 07/11/2024 BASIC METABOLIC PANEL Lab Routine 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 of liver without ascites, unspecified hepatic cirrhosis type (HCC) Expected: 07/12/2023, Expires: 07/11/2024 CBC WITH WBC DIFFERENTIAL Lab Routine 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 of liver without ascites, unspecified hepatic cirrhosis type (HCC) Expected: 07/12/2023, Expires: 07/11/2024 COLONOSCOPY, DIAGNOSTIC (RECTUM) Procedures Routine Screen for colon cancer Ordered: 07/12/2023 Scheduled Procedures Name Priority Associated Diagnoses Date/Ti me COLONOSCOPY FLEXIBLE PROXIMAL DIAGNOSTIC Special screening for malignant neoplasms, colon 07/14/2023 8:15 AM EDT Health Maintenance Due Date Last Done Comments Diabetes Screening 1965 Lipid Panel 1965 Pneumococcal Vaccine: Pediat rics (0 to 5 Years) and At-Risk Patients (6 to 64 Years) (1 of 2 - PCV) 1971 Depression Screening 1977 HIV Screening 01/30/1980 Hepatitis C Screening 1983 DTaP,Tdap,and Td Vaccines (1 - Tdap) 01/30/1984 Hepatitis B (1 of 3 - 19+ 3- dose series) 01/30/1984 Mammogram 2005 Cologuard 2010 Colonoscopy 2010 Colorectal Cancer Screening 2010 Fecal Occult Blood Test 2010 Sigmoidoscopy 2010 Zoster Vaccines (1 of 2) 2015 COVID-19 Vaccine (1 - 2022-2 4 season) 2022 Influenza Vaccine (FLU shot) (Season Ended) 2023 GARDASIL-HPV IMMUNIZATION SERIES Aged Out No longer eligible based on patient's age to complete this topic MENINGOCOCCAL (MENACTRA/MENVEO) Aged Out No longer eligible based on patient's age to complete this topic documented as of this encounter Medical Devices Not on filedocumented as of this encounter Visit Diagnoses Diagnosis PSC (primary sclerosing cholangitis)- Primary Cholangitis Primary biliary cholangitis (HCC) Cirrhosis of liver without ascites, unspecified hepatic cirrhosis type (HCC) Screen for colon cancer Special screening for malignant neoplasms, colon Abnormal findings on diagnostic imaging of limbs Other nonspecific (abnormal) findings on radiological and other examinations of body structure Special screening for malignant neoplasms, colon documented in this encounter Care Teams Security Operations Engineer Relationship Specialty Start Date End Date Mary Grace Walker CRNP [address] [place] [address] [place] [address] PCP - General Nurse Practitioner 06/28/23 documented as of this encounter
--- OUTSIDE RECORDS SUMMARY | 2024-01-06 03:13 | External Medical Summary | Summary of Care ---
Author Name Unknown Organization [facility] Address [address] [place] [facility] [place] [address] Phone [phone] Care Team Providers Care Chalk Extruding Machine Operator Name Role Phone Mary Grace Walker Primary Care Provider + Reason for Visit * Auth/Cert Specialty Diagnoses / Procedures Referred By Contac t Referred To Contact Diagnoses Special screening for malignant neoplasms, colon Special screening for malignant neoplasms, colon [Z12.11] Procedures COLONOSCOPY, DIAGNOSTIC (RECTUM) COLONOSCOPY FLEXIBLE PROXIMAL DIAGNOSTIC Cecy Zavala DO [address] [place] [address] [facility] [address] [place] [phone] Referral ID Status Reason Start Date Expiration Date Visits Re quested Visits Authorized [id number] [phone] Encounter Details Date Type Department Care Team (Latest Contact Info) Description 07/14/2023 7:01 AM EDT - 07/14/2023 9:04 AM EDT Hospital Encounter [facility], Endoscopy Room [facility] [address] [place] [phone] Cecy Zavala DO [address] [place] [address] Colonoscopy Discharge Disposition: Home - Self Care Allergies No known active allergiesdocumented as of this encounter (statuses as of 07/14/2023) Medications Medication Sig Dispensed Refills Start Date [...] as of this encounter (statuses as of 07/14/2023) Social History Tobacco Use Types Packs/Day Years [...] Sign Reading Time Taken Comments Blood Pressure 118/77 07/14/2023 8:49 AM EDT Pulse 61 07/14/2023 8:49 AM EDT Temperature 36.1 C (97 F) 07/14/2023 8:49 AM EDT Respiratory Rate 16 07/14/2023 8:49 AM EDT Oxygen Saturation 99% 07/14/2023 8:49 AM EDT Inhaled Oxygen Concentration - - Weight 70.8 kg (156 lb) 07/14/2023 7:40 AM EDT Height 162.6 cm (5' 4") 07/14/2023 7:40 AM EDT Body Mass Index 26.78 07/14/2023 7:40 AM EDT documented in this encounter H&P Notes * Cecy Zavala DO - 07/14/2023 7:56 AM EDT Endoscopy Pre-Procedure Assessment Name: Rosie Castro Date: 07/14/2023 Time: 7:56 AM Procedure: Colonoscopy; with Indication(s) of average risk screening Endoscopy Pre-Procedure Assessment: Prior to the procedure, the patient was identified. The patient's history, medications and allergies were reviewed as per the Anesthesia Assessment. The patient is competent. The risks and benefits of the proposed procedure and the planned sedation were discussed with the patient. All questions were answered and informed consent for the procedure was obtained. This patient has undergone a preprocedural evaluation. A determination has been made to proceed with the planned procedure under [facility] procedural guidelines and the [facility] Non-Emergent, Elective Medical Services and Treatment Recommendations (published on 06-12-19). The community and hospital prevalence of COVID-19 has been discussed as well as this patient's specific risks associated with SARS-CoV-19 infection. Based upon the clinical acuity and patient-specific care considerations, this procedure is deemed a Tier II - Intermediate acuity treatment or service with either progression or the threat of progressive disease related to the delay in treatment. Not providing the service has the potential for increasing morbidity or mortality. BP 136/67 | Pulse 60 | Temp 35.7 C (96.3 F) (Tympanic) | Resp 16 | Ht 1.626 m (5' 4") | Wt 70.8kg (156 lb) | SpO2 100% | BMI 26.78 kg/m | BSA 1.79 m Prior to Admission medications Medication Sig Last Dose Discont. Sertraline HCl 50 MG Oral Tablet (Zoloft) 1 Tablet daily. Takes at night Past Week Ursodiol 500 MG Oral Tablet Take 1 Tablet by mouth 2 times a day with morning and evening meals. 07/13/2023 naproxen (NAPROSYN) 500 MG Tablet Take 1 Tablet by mouth 2 times a day with morning and evening meals. Past Month traMADol (ULTRAM) 25 MG Tablet Take 0.5 Tablets by mouth every 6 hours as needed for Pain. Past Week Vitamin D (Ergocalciferol) 47832 UNIT Oral Capsule Take 50,000 Units by mouth once a week. Escitalopram Oxalate 10 MG Oral Tablet (Lexapro) Take 1 Tablet by mouth daily. Takes in the evening Patient not taking: Reported on 07/12/2023 Not Taking fluticasone (FLONASE) 50 MCG/ACT nasal spray Not Taking Review of patient's allergies indicates: No Known Allergies Physical Exam: Mental Status Examination: alert and oriented. General: nad, calm Airway Examination: normal oropharyngeal airway and neck mobility. Respiratory Examination: symmetrical excursion Cardiac: RRR, no murmurs Abd:soft/ntd ASA Grade: II - A patient with mild systemic disease. After reviewing the risks and benefits, the patient was deemed in satisfactory condition to undergothe procedure. The anesthesia plan was to use general anesthesia. Cecy Zavala DO Gastroenterology and Hepatology 07/14/2023 documented in this encounter Procedure Notes * Mary Grace Walker CRNP - 07/14/2023 8:05 AM EDTAssociated Order(s): COLONOSCOPY [facility] Patient Name: Rosie Castro Procedure Date: 07/14/2023 8:05 AM Date of : 1965 Admit Type: Outpatient Note Status: Finalized Date of : 1965 Admit Type: Outpatient Age: 58 Room: [facility] 2 Gender: Female Note Status: Finalized Procedure: Colonoscopy Indications: Screening for colorectal malignant neoplasm (has history of PSC and PBC) Providers: Cecy Zavala DO (Doctor) Patient Profile: This is a 58 year old female. Refer to note in patient chart for documentation of history and physical. Referring MD: Mary Grace Walker (Referring MD) Complications: No immediate complications. Procedure: Pre-Anesthesia Assessment: - Prior to the procedure, a History and Physical was performed, and patient medications and allergies were reviewed. The risks and benefits of the procedure and the sedation options and risks were discussed with the patient. All questions were answered and informed consent was obtained. Patient identification and proposed procedure were verified by the physician, the nurse and the personal fitness manager in the procedure room. Mental Status Examination: alert and oriented. Airway Examination: Mallampati Class II (the uvula but not tonsillar pillars visualized). Respiratory Examination: clear to auscultation. CV Examination: RRR, no murmurs, no S3 or S4. Prophylactic Antibiotics: The patient does not require prophylactic antibiotics. Prior Anticoagulants: The patient has taken no anticoagulant or antiplatelet agents. ASA Grade Assessment: II - A patient with mild systemic disease. After reviewing the risks and benefits, the patient was deemed in satisfactory condition to undergo the procedure. The anesthesia plan was to use general anesthesia. Immediately prior to administration of medications, the patient was re-assessed for adequacy to receive sedatives. The physical status of the patient was re-assessed after the procedure. After I obtained informed consent, the scope was passed under direct vision. All instruments were visually inspected immediately before and after removal from the patient to ensure they are fully intact. Throughout the procedure, the patient's blood pressure, pulse, and oxygen saturations were monitored continuously. The PCF-H180AL(colonscope)[id number] was introduced through the anus and advanced to the cecum, identified by appendiceal orifice and ileocecal valve. The colonoscopy was performed without difficulty. The patient tolerated the procedure well. The quality of the bowel preparation was good. Findings & Specimens: The perianal and digital rectal examinations were normal. A 3 mm polyp was found in the descending colon. The polyp was sessile. The polyp was removed with a cold snare. Resection and retrieval were complete. Verification of patient identification for the specimen was done by the physician and nurse using the patient's name and date. The pathology specimen was placed into Bottle Number 1. Internal hemorrhoids were found during retroflexion. The hemorrhoids were small. Impression: - One 3 mm polyp in the descending colon, removed with a cold snare. Resected and retrieved. - Internal hemorrhoids. Recommendation: - Patient has a contact number available for emergencies. The signs and symptoms of potential delayed complications were discussed with the patient. Return to normal activities tomorrow. Written discharge instructions were provided to the patient. - The patient will be observed post-procedure, until all discharge criteria are met. - Discharge patient to home (with escort). - Resume previous diet. - Continue present medications. - Await pathology results. - Repeat colonoscopy in 5 years for surveillance. Cecy Zavala DO 07/14/2023 8:31:47 AM This report has been signed electronically. documented in this encounter Nursing Notes * Fili Strickland RN - 07/14/2023 9:04 AM EDT Patient is alert, pain free, passing flatus and tolerating po fluids prior to discharge. Patient has been visited by Dr. Zavala. Patient has received and demonstrates understanding of discharge instructions. Patient is transported via w/c to private auto accompanied by endo staff. * Fili Strickland RN - 07/14/2023 8:42 AM EDT Patient awake, denies any pain. Offered clear liquid * Fili Strickland RN - 07/14/2023 8:33 AM EDT Patient post Colonoscopy, sedated asleep on her left side. Stable VS. Will continue to monitor * Romelia Wilson RN - 07/14/2023 8:31 AM EDT Specimen(s) and location(s) verified with physician post procedure 8:31AM Romelia Wilson RN Pt avelino colonoscopy w/ polypectomy well. Abd pressure applied to assist w/ advancement of the scope.Abd soft post proc. To recovery lying on L side. Pre cleaning of scope at the bedside started by pulmonary function technician. * Liseth Brown RN - 07/14/2023 7:35 AM EDT The following pt discharge instructions reviewed with pt prior to prodedure: No driving today. No alcohol today. No signing of legal documents. Rest as much as possible today and can return to normal activities tomorrow. No operating any heavy equipment today. Diet as tolerated. Pt verbalized understanding. documented in this encounter Plan of Treatment Upcoming Encounters Date Type Department Care Team (Late st Contact Info) Description 07/22/2023 9:00 AM EDT Office Visit Rheumatology [address], [place] [address] [facility] [address] Yogesh Bae PA-C [facility] [place] [address] 08/05/2023 7:30 AM EDT Imaging Radiology [facility] [facility] [address] [facility] [place] [address] 10/31/2023 1:40 PM EDT Office Visit [facility], [facility] [address] [facility] [address] Cecy Zavala DO [address] [facility] [place] [address] Pending Results Name Type Priority Associated Diagnoses Date /Time SURGICAL PATHOLOGY Pathology Routine Special screening for malignant neoplasms, colon 07/14/2023 8:31 AM EDT Scheduled Orders Name Type Priority Associated Diagnoses Orde r Schedule SURGICAL PATHOLOGY Pathology Routine Special screening for malignant neoplasms, colon Release Upon Ordering for 1 Occurrences starting 07/14/2023, 1 completed Scheduled Procedures Name Priority Associated Diagnoses Date/Ti me COLONOSCOPY FLEXIBLE PROXIMAL DIAGNOSTIC Special screening for malignant neoplasms, colon 07/14/2023 8:07 AM EDT Health Maintenance Due Date Last Done Comments Lipid Panel 1965 Pneumococcal Vaccine: Pediat rics (0 to 5 Years) and At-Risk Patients (6 to 64 Years) (1 of 2 - PCV) 1971 Depression Screening 1977 HIV Screening 01/30/1980 Hepatitis C Screening 1983 DTaP,Tdap,and Td Vaccines (1 - Tdap) 01/30/1984 Hepatitis B (1 of 3 - 19+ 3- dose series) 01/30/1984 Mammogram 2005 Cologuard 2010 Fecal Occult Blood Test 2010 Sigmoidoscopy 2010 Zoster Vaccines (1 of 2) 2015 COVID-19 Vaccine (2022-2 4 season) 2022 Influenza Vaccine (FLU shot) (Season Ended) 2023 Diabetes Screening 07/11/2026 07/12/2023 Colonoscopy 07/13/2033 07/14/2023 Colorectal Cancer Screening 07/13/2033 GARDASIL-HPV IMMUNIZATION SERIES Aged Out No longer eligible based on patient's age to complete this topic MENINGOCOCCAL (MENACTRA/MENVEO) Aged Out No longer eligible based on patient's age to complete this topic documented as of this encounter Medical Devices Not on filedocumented as of this encounter Procedures Procedure Name Priority Date/Time Associated Diagnosis Comments COLONOSCOPY 07/14/2023 8:05 AM EDT documented in this encounter Results * COLONOSCOPY (07/14/2023 8:05 AM EDT) 07/14/2023 8:05 AM EDT Narrative Procedure Note Mary Grace Walker CRNP - 07/14/2023 8:05 AM EDT [facility] Patient Name: Rosie Castro Procedure Date: 07/14/2023 8:05 AM Date of : 1965 Admit Type: Outpatient Note Status:Finalized Date of : 1965 Admit Type: Outpatient Age: 58 Room: [facility] 2 Gender: Female Note Status: Finalized Procedure: Colonoscopy Indications: Screening for colorectal malignant neoplasm (hashistory of PSC and PBC) Providers: Cecy Zavala DO (Doctor) Patient Profile: This is a 58 year old female. Refer to note inpatient chart for documentation of history and physical. Referring MD: Mary Grace Walker (Referring MD) Complications: No immediate complications. Procedure: Pre-Anesthesia Assessment: - Prior to the procedure, a History and Physicalwas performed, and patient medications and allergies were reviewed. The risksand benefits of the procedure and the sedation options and risks were discussed withthe patient. All questions were answered and informed consent was obtained. Patientidentification and proposed procedure were verified by the physician, the nurseand the personal fitness manager in the procedure room. Mental Status Examination: alertand oriented. Airway Examination: Mallampati Class II (the uvula but not tonsillarpillars visualized). Respiratory Examination: clear to auscultation. CV Examination:RRR, no murmurs, no S3 or S4. Prophylactic Antibiotics: The patient does notrequire prophylactic antibiotics. Prior Anticoagulants: The patient has taken noanticoagulant or antiplatelet agents. ASA Grade Assessment: II - A patient with mildsystemic disease. After reviewing the risks and benefits, the patient was deemed insatisfactory condition to undergo the procedure. The anesthesia plan was to use generalanesthesia. Immediately prior to administration of medications, the patient wasre-assessed for adequacy to receive sedatives. The physical status of the patient wasre-assessed after the procedure. After I obtained informed consent, the scope waspassed under direct vision. All instruments were visually inspected immediatelybefore and after removal from the patient to ensure they are fully intact. Throughout the procedure, the patient's bloodpressure, pulse, and oxygen saturations were monitored continuously. ThePCF-H180AL(colonscope)[id number] was introduced through the anus and advanced to the cecum, identified byappendiceal orifice and ileocecal valve. The colonoscopy was performed withoutdifficulty. The patient tolerated the procedure well. The quality of the bowelpreparation was good. Findings & Specimens: The perianal and digital rectal examinations were normal. A 3 mm polyp was found in the descending colon. The polyp wassessile. The polyp was removed with a cold snare. Resection and retrieval were complete. Verification ofpatient identification for the specimen was done by the physician and nurse using the patient's nameand date. The pathology specimen was placed into Bottle Number 1. Internal hemorrhoids were found during retroflexion. The hemorrhoidswere small. Impression: - One 3 mm polyp in the descending colon, removedwith a cold snare. Resected and retrieved. - Internal hemorrhoids. Recommendation: - Patient has a contact number available foremergencies. The signs and symptoms of potential delayed complications were discussed withthe patient. Return to normal activities tomorrow. Written discharge instructionswere provided to the patient. - The patient will be observed post-procedure,until all discharge criteria are met. - Discharge patient to home (with escort). - Resume previous diet. - Continue present medications. - Await pathology results. - Repeat colonoscopy in 5 years for surveillance. Cecy ZavalaDO 07/14/2023 8:31:47 AM This report has been signed electronically. Mary Grace [facility] documented in this encounter Visit Diagnoses Diagnosis Special screening for malignant neoplasms, colon documented in this encounter Administered Medications Inactive Administered Medications - up to 3 most recent administrations Medication Order MAR Action Action Date Dose Rate Site isolyte-S pH 7.4 infusion Intravenous, at 100 mL/hr, Plasma-LYTE 148, isolyte-S, and isolyte-S pH 7.4 are considered equivalent - including for MAR barcode scanning., CONTINUOUS, Starting on Ninoska 07/14/23 at 0745, Until Ninoska 07/14/23 at 1305, Pre-Op Continue from Pre-Op 07/14/2023 8:07 AM EDT 100 mL/hr New Bag 07/14/2023 7:42 AM EDT 100 mL/hr documented in this encounter Active and Recently Administered Medications Times are shown in EDT. Continuous Medication Order 07/12/2023 07/13/2023 07/14/2023 isolyte-S pH 7.4 infusion Intravenous, at 100 mL/hr, Plasma-LYTE 148, isolyte-S, and isolyte-S pH 7.4 are considered equivalent - including for MAR barcode scanning., CONTINUOUS, Starting on Ninoska 07/14/23 at 0745, Until Ninoska 07/14/23 at 1305, Pre-Op 0742 (New Bag - Prov ider: Liseth Brown RN)0807 (Continue from Pre-Op - Provider: Joe Morris CRNA)0831 (Anes Intra-Op Fluid - Provider: Joe Morris CRNA) documented in this encounter Care Teams Chalk Extruding Machine Operator Relationship Specialty Start Date End Date Mary Grace Walker CRNP [address] [place] [address] [place] [address] PCP - General Nurse Practitioner 06/28/23 documented as of this encounter
--- OUTSIDE RECORDS SUMMARY | 2024-01-06 03:13 | External Medical Summary ---
Author Name Unknown Address Unknown Organization : Laboratory Report Ordering Provider Test Date Status TING MORA 07/12/2023 10:48:32 Final Observation Date Value Abnormality Reference (Units ) Status Vitamin A, level 07/12/2023 10:48:32 23 Below low nor mal 38-98 (mcg/dL) Final Vitamin supplementation with in 24 hours prior to
blood draw may affect the accuracy of the results.
This test was developed and its analytical performance
characteristics have been determined by [facility]
[place] It has
not been cleared or approved by the U.S. Food and Drug
Administration. This assay has been validated pursuant
to the CLIA regulations and is used for clinical
purposes.

Test Performed at:
[facility]
[address] [facility] [place] [address]
Marlon Emery M.D., Ph.D.,Director of Laboratories Performing Location
--- OUTSIDE RECORDS SUMMARY | 2024-01-06 03:13 | External Medical Summary | Summary of Care ---
Author Name Unknown Organization [facility] Address [address] [facility] [place] [address] Phone [phone] Care Team Providers Care Roof Truss Detailer Name Role Phone Mary Grace Walker Primary Care Provider + Reason for Referral * Evaluate & Treat - Unlimited Visits (Within 10 days (routine)) - Pending Review Specialty Diagnoses / Procedures Referred By Von friedman Referred To Contact Rheumatology Diagnoses Osteoporosis without current pathological fracture, unspecified osteoporosis type Cecy Zavala DO [address] [place] [address] Referral ID Status Reason Start Date Expiration Date Visits Requested Visits Authorized [id number] Pending Review Specialty Services Required 07/13/[phone] Question Answer Referral Priority Within 10 days (routine) Where should this appointment be scheduled? [facility] Encounter Details Date Type Department Care Team (Late st Contact Info) Description 07/13/2023 Telephone Hepatology, [facility] [address] [place] [address] Cecy Zavala DO [address] [place] [address] Allergies No known active allergiesdocumented as of this encounter (statuses as of 07/13/2023) Medications Medication Sig Dispensed Refills Start Date [...] Tablet 2 07/12/2023 Active Vitamin D (Ergocalciferol) 11032 UNIT Oral CapsuleIndications:Os teoporosis without current pathological fracture, unspecified osteoporosis type,Vitamin D deficiency Take 50,000 Units by mouth once a week. 8 Capsule 0 07/13/2023 Active documented as of this encounter (statuses as of 07/13/2023) Social History Tobacco Use Types Packs/Day Years [...] encounter Miscellaneous Notes * Telephone Encounter - Sally Cecy BondeDO - 07/13/2023 1:49 PM EDT Please let patient know her DEXA scans shows concern for osteoporosis which is weakened bones. She will likely need to be started on treatment for this. I have placed a referral to the osteoporosis clinic but she can also speak with her PCP regarding treatment for this as well too. In the meantime her vitamin D levels were very low. I have sent a script for her to take 50,000 units weekly for 8 weeks. After the 8 weeks she can take 2000 units daily over the counter. She should also make sure she is getting 1200 mg of calcium through diet or supplementation daily. Cecy Zavala DO documented in this encounter Plan of Treatment Upcoming Encounters Date Type Department Care Team (Latest Contact Info) Description 07/14/2023 8:15 AM EDT Hospital Encounter [facility], Endoscopy Room [facility] [address] [place] [phone] Cecy Zavala DO [address] [place] [address] 07/14/2023 8:15 AM EDT - 07/14/2023 8:45 AM EDT Surgery ENDO [facility], Endoscopy Room [facility] [address] [place] [place] [phone] Cecy Zavala DO [address] [place] [address] COLONOSCOPY FLEXIBLE PROXIMAL DIAGNOSTIC 08/05/2023 7:30 AM EDT Imaging Radiology [facility] [facility] [address] [place] [address] 10/31/2023 1:40 PM EDT Office Visit Hepatology, [facility] [address] [place] [address] Cecy Zavala DO [address] [place] [address] Scheduled Procedures Name Priority Associated Diagnoses Date/Ti me COLONOSCOPY FLEXIBLE PROXIMAL DIAGNOSTIC Special screening for malignant neoplasms, colon 07/14/2023 8:15 AM EDT Scheduled Referrals Name Type Priority Associated Diagnoses [...] (Season Ended) 2023 Diabetes Screening 07/11/2026 07/12/2023 GARDASIL-HPV IMMUNIZATION SERIES Aged Out No longer eligible based on patient's age to complete this topic MENINGOCOCCAL (MENACTRA/MENVEO) Aged Out No longer eligible based on patient's age to complete this topic documented as of this encounter Medical Devices Not on filedocumented as of this encounter Visit Diagnoses Diagnosis Osteoporosis without current pathological fracture, unspecified osteoporosis type- Primary Vitamin D deficiency Unspecified vitamin D deficiency Special screening for malignant neoplasms, colon documented in this encounter Care Teams Roof Truss Detailer Relationship Specialty Start Date End Date Mar yGrace Walker CRNP [address] [place] [address] [place] [address] PCP - General Nurse Practitioner 06/28/23 documented as of this encounter
--- OUTSIDE RECORDS SUMMARY | 2024-01-06 03:13 | External Medical Summary ---
Author Name Unknown Address Unknown Organization [id number]:[facility] [address] [place] [address] Laboratory Report Ordering Provider Test Date Status TING MORA 07/12/2023 10:48:32 Final Warfarin Therapy
INR: 2 .0-3.0 conventional anticoagulation
INR: 2.5- 3.5 high intensity anticoagulation Observation Date Value Abnormality Reference (Units ) Status PT 07/12/2023 10:48:32 11.9 11.6-15.2 (seconds) Final INR 07/12/2023 10:48:32 0.9 0.8-1.2 Final Performing Location [facility]ATORY [facility] [address] [place] [address]
--- OUTSIDE RECORDS SUMMARY | 2024-01-06 03:13 | External Medical Summary | Summary of Care ---
Author Name Unknown Organization [facility] Address [address] [facility] [place] [address] Phone [phone] Care Team Providers Care Workforce Management Consultant Name Role Phone Mary Grace Walker Primary Care Provider + Reason for Referral * Evaluate & Treat - Unlimited Visits (Within 10 days (routine)) - Pending Review Specialty Diagnoses / Procedures Referred By Von friedman Referred To Contact Rheumatology Diagnoses Osteoporosis without current pathological fracture, unspecified osteoporosis type Cecy Zavala DO [address] [place] [address] Referral ID Status Reason Start Date Expiration Date Visits Requested Visits Authorized [id number] Pending Review Specialty Services Required 07/13/[phone] Question Answer Referral Priority Within 10 days (routine) Where should this appointment be scheduled? [facility] Reason for Visit * Reason Onset Date Comments Test Results 07/13/2023 Encounter Details Date Type Department Care Team (Late st Contact Info) Description 07/13/2023 Telephone Hepatology, [facility] [address] [place] [address] Cecy Zavala DO [address] [place] [address] Test Results Allergies No known active allergiesdocumented [...] Tablet 2 07/12/2023 Active Vitamin D (Ergocalciferol) 20094 UNIT Oral CapsuleIndications:Os teoporosis without current pathological [...] Telephone Encounter - Klaudia Granados RN - 07/13/2023 3:43 PM EDT Patient notified. Verbalizes understanding. Asked that this be sent to her email and through [employer]. Sent it to both. * Telephone Encounter - Cecy Zavala DO - 07/13/2023 1:49 PM EDT Please let [...] 07/14/2023 8:15 AM EDT Hospital Encounter ENDO [facility], Endoscopy Room [facility] [address] [place] [phone] Cecy Zavala DO [address] [place] [address] 07/14/2023 8:15 AM EDT - 07/14/2023 8:45 AM EDT Surgery ENDO [facility], Endoscopy Room [facility] [address] [place] [phone] Cecy Zavala DO [address] [place] [address] COLONOSCOPY FLEXIBLE PROXIMAL DIAGNOSTIC 08/05/2023 7:30 AM EDT Imaging Radiology [facility] 1st [facility] [address] [place] [address] 10/31/2023 1:40 PM EDT Office Visit Hepatology, [facility] [address] [place] [address] Cecy Zavala DO [address] [place] [address] Scheduled Procedures Name Priority Associated Diagnoses Date/Ti [...] colon documented in this encounter Care Teams Workforce Management Consultant Relationship Specialty Start Date End Date Mary Grace Walker CRNP [address] [place] [address] [place] [address] PCP - General Nurse Practitioner 06/28/23 documented as of this encounter
--- OUTSIDE RECORDS SUMMARY | 2024-01-06 03:13 | External Medical Summary ---
Author Name Unknown Address Unknown Organization [id number]:[facility] [place] [address] - [address] [place] [address] Laboratory Report Ordering Provider Test Date Status TING MORA 07/12/2023 10:48:32 Final Observation Date Value Abnormality Reference (Units ) Status SYNC LEUKOCYTES IN BLOOD BY AUTOMATED COUNT 07/12/2023 10:48:32 4.50 4.00-10.80 (K/uL) Final Segs 07/12/2023 10:48:32 56.2 40.0-75.0 (%) Final Lymphs % 07/12/2023 10:48:32 31.8 18.0-42.0 (%) Final Monos 07/12/2023 10:48:32 6.7 1.0-11.0 (%) Final Eosinophils 07/12/2023 10:48:32 4.9 0.0-6.0 (%) Final Basos 07/12/2023 10:48:32 0.4 0.0-2.0 (%) Final Absolute Segs 07/12/2023 10:48:32 2.53 1.80-7.70 (K/uL) Final Lymphs, absolute 07/12/2023 10:48:32 1.43 1.00-4.80 (K/ul) Final Monos, Abs 07/12/2023 10:48:32 0.30 0.00-1.10 (K/uL) Final Eos, Abs 07/12/2023 10:48:32 0.22 0.00-0.70 (K/uL) Final Basos, Abs 07/12/2023 10:48:32 0.02 0.00-0.20 (K/uL) Final Performing Location [facility] 0 - [address] [place] [address]
--- OUTSIDE RECORDS SUMMARY | 2024-01-06 03:13 | External Medical Summary ---
Author Name Unknown Address Unknown Organization : Laboratory Report Ordering Provider Test Date Status TING MORA 07/12/2023 10:48:32 Final Observation Date Value Abnormality Reference (Units ) Status Vitamin E, level 07/12/2023 10:48:32 12.8 5.7 -19.9 (mg/L) Final Levels of alpha-tocopherol < 5 mg/L are consistent
with Vitamin E deficiency in adults. Beta+gamma tocopherol [Mass/ volume] in Serum or Plasma 07/12/2023 10:48:32 1.9 <=4.3 (mg/L) Final Vitamin supplementation with in 24 hours prior to
blood draw may affect the accuracy of the results.
This test was developed and its analytical performance
characteristics have been determined by [facility] [employer] [place], [place]. It has
not been cleared or approved by the U.S. Food and Drug
Administration. This assay has been validated pursuant
to the CLIA regulations and is used for clinical
purposes.

Test Performed at:
[email or web address]
[address] [facility]
[place], [place] [address]
Marlon Emery M.D., Ph.D.,Director of Laboratories Performing Location
--- OUTSIDE RECORDS SUMMARY | 2024-01-06 03:13 | External Medical Summary ---
Author Name Unknown Address Unknown Organization [id number]:[facility] [place] [address] [facility] [address] Laboratory Report Ordering Provider Test Date Status TING MORA 07/12/2023 10:48:32 Final Deficient: <20 ng/mL
Ins ufficient: 20-29 ng/mL
Recommended/Optimum:30-50 ng/mL

Vitamin D intoxication is rare. If suspicious of Vitamin D toxicity, evaluation of serum Calcium and PTH is recommended. Observation Date Value Abnormality Reference (Units ) Status 25-OH Vitamin D total 07/12/2023 10:48:32 19 Below low normal >19 (ng/mL) Final Performing Location LABORATORY C - [address] [facility] [address]
--- OUTSIDE RECORDS SUMMARY | 2024-01-06 03:13 | External Medical Summary ---
Author Name Unknown Address Unknown Organization [id number]:[facility] [place] [address] - [address] [place] [address] Laboratory Report Ordering Provider Test Date Status TING MORA 07/12/2023 10:48:32 Final Observation Date Value Abnormality Reference (Units ) Status WBC, Total 07/12/2023 10:48:32 4.50 4.00-10.8 0 (K/uL) Final RBC 07/12/2023 10:48:32 4.32 3.85-5.15 (M/uL) Final Hemoglobin 07/12/2023 10:48:32 13.8 12.0-15.3 (g/dL) Final HCT 07/12/2023 10:48:32 41.4 36.0-45.2 (%) Final MCV 07/12/2023 10:48:32 95.8 81.5-97.5 (fL) Final MCH 07/12/2023 10:48:32 31.9 27.0-34.0 (pg) Final MCHC 07/12/2023 10:48:32 33.3 32.0-36.0 (g/dL) Final RDW 07/12/2023 10:48:32 15.5 11.5-15.5 (%) Final Platelets 07/12/2023 10:48:32 199 140-400 (K /uL) Final MPV 07/12/2023 10:48:32 9.2 6.6-11.1 ( fL) Final Performing Location LAB[facility]ATORY [facility] [place] 57[address] - [address] [place] [address]
--- OUTSIDE RECORDS SUMMARY | 2024-01-06 03:13 | External Medical Summary ---
Author Name Unknown Address Unknown Organization K01:LAB[facility]ATORY [facility] [place] - [address] [place] [address] Laboratory Report Ordering Provider Test Date Status TING MORA 07/12/2023 10:48:32 Final Observation Date Value Abnormality Reference (Units ) Status Alpha-Fetoprotein 07/12/2023 10:48:32 2.1 0. 0-8.3 (ng/mL) Final Performing Location LABORATORY C - [address] [facility] [address]
--- OUTSIDE RECORDS SUMMARY | 2024-01-06 03:13 | External Medical Summary | Summary of Care ---
Author Name Unknown Organization [facility] Address [address] [place] [address] Phone [phone] Care Team Providers Care Dramatic Art Teacher Name Role Phone Mary Grace Walker Primary Care Provider + Reason for Visit * Reason Comments Outpatient Testing Encounter Details Date Type Department Care Team (Late st Contact Info) Description 07/12/2023 10:50 AM EDT Laboratory Laboratory, [facility] [address] [place] [id number] [facility] [address] [place] [address] PSC (primary sclerosing cholangitis); Primary biliary cholangitis (HCC); Cirrhosis of liver without ascites, unspecified hepatic cirrhosis type (HCC) Allergies No known active allergiesdocumented as of [...] Care Team (Latest Contact Info) Description 07/12/2023 2:30 PM EDT [address]iology, [address] [address] 07/14/2023 8:15 AM EDT Hospital Encounter ENDO [facility], Endoscopy Room [facility] [address] [place] [phone] Cecy Zavala DO [address] [place] [address] 07/14/2023 8:15 AM EDT - 07/14/2023 8:45 AM EDT Surgery [facility]O [facility], Endoscopy Room [facility] [address] [place] [phone] Cecy Zavala DO [address] [place] [address] COLONOSCOPY FLEXIBLE PROXIMAL DIAGNOSTIC 08/05/2023 7:30 AM EDT Imaging Radiology [address] [place] [address] 10/31/2023 1:40 PM EDT Office Visit Hepatology, [facility] [address] [place] [address] Cecy Zavala DO [address] [place] [address] Pending Results Name Type Priority Associated Diagnoses Date /Time VITAMIN A (RETINOL) Lab Routine 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 of liver without ascites, unspecified hepatic cirrhosis type (HCC) 07/12/2023 10:48 AM EDT 25-HYDROXY VITAMIN D Lab Routine 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 of liver without ascites, unspecified hepatic cirrhosis type (HCC) 07/12/2023 10:48 AM EDT VITAMIN E (TOCOPHEROL) Lab Routine 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 of liver without ascites, unspecified hepatic cirrhosis type (HCC) 07/12/2023 10:48 AM EDT VITAMIN K Lab Routine 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 of liver without ascites, unspecified hepatic cirrhosis type (HCC) 07/12/2023 10:48 AM EDT HEPATIC FUNCTION PANEL Lab Routine 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 of liver without ascites, unspecified hepatic cirrhosis type (HCC) 07/12/2023 10:48 AM EDT PT INR Lab Routine 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 of liver without ascites, unspecified hepatic cirrhosis type (HCC) 07/12/2023 10:48 AM EDT ALPHA-FETOPROTEIN TUMOR MARKER Lab Routine 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 of liver without ascites, unspecified hepatic cirrhosis type (HCC) 07/12/2023 10:48 AM EDT BASIC METABOLIC PANEL Lab Routine 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 of liver without ascites, unspecified hepatic cirrhosis type (HCC) 07/12/2023 10:48 AM EDT CBC WITH WBC DIFFERENTIAL Lab Routine 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 of liver without ascites, unspecified hepatic cirrhosis type (HCC) 07/12/2023 10:48 AM EDT CBC Lab Routine 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 of liver without ascites, unspecified hepatic cirrhosis type (HCC) 07/12/2023 10:48 AM EDT DIFFERENTIAL, AUTOMATED Lab Routine 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
--- OUTSIDE RECORDS SUMMARY | 2024-01-06 03:13 | External Medical Summary | Summary of Care ---
Author Name Unknown Organization [facility] Address [address] [facility] [place] [address] Phone [phone] Care Team Providers Care Tactical Air Defense Controller Name Role Phone Mary Grace Walker Primary Care Provider + Reason for Visit * Reason Onset Date Comments Test Results 07/18/2023 Encounter Details Date Type Department Care Team (Late st Contact Info) Description 07/18/2023 Telephone Hepatology, [facility] [address] [place] [address] Cecy Zavala DO [address] [place] [address] Test Results Allergies No known active allergiesdocumented [...] Tablet 2 07/12/2023 Active Vitamin D (Ergocalciferol) 99321 UNIT Oral CapsuleIndications:O steoporosis without current pathological fracture, unspecified osteoporosis type,Vitamin D deficiency Take 50,000 Units by mouth once a week. 8 Capsule 0 07/13/2023 Active Vitamin A 3 MG (02002 UT) Oral TabletIndications:Vi tamin A deficiency Take [...] 07/19/2023 3:00 PM EDT Office Visit Rheumatology [facility] [address] [facility] [place] [address] Yogesh Bae PA-C [address] [place] [address] 08/05/2023 7:30 AM EDT Imaging [facility] [address] [facility] [place] [address] 10/31/2023 1:40 PM EDT Office Visit [facility], [facility] [place] [address] Cecy Zavala DO [address] [place] [address] Scheduled Orders Name Type Priority Associated Diagnoses [...] deficiency documented in this encounter Care Teams Tactical Air Defense Controller Relationship Specialty Start Date End Date Mary Grace Walker CRNP [address] [place] [address] [place] [address] PCP - General Nurse Practitioner 06/28/23 documented as of this encounter
--- OUTSIDE RECORDS SUMMARY | 2024-01-06 03:14 | External Medical Summary ---
Author Name Unknown Address Unknown Organization : Laboratory Report Ordering Provider Test Date Status TING MORA 07/12/2023 10:48:32 Final Observation Date Value Abnormality Reference (Units ) Status Vitamin K-1, level 07/12/2023 10:48:32 534 1 30-1500 (pg/mL) Final This test was developed and its analytical performance
characteristics have been determined by [employer]
[place]. It has
not been cleared or approved by the U.S. Food and Drug
Administration. This assay has been validated pursuant
to the CLIA regulations and is used for clinical
purposes.

Test Performed at:
[facility] [place]
[address] [facility] [place] [address]
Marlon Emery M.D., Ph.D.,Director of Laboratories Performing Location
--- OUTSIDE RECORDS SUMMARY | 2024-01-06 03:14 | External Medical Summary ---
Author Name Unknown Address Unknown Organization K[facility] - [address] [place] [address] Laboratory Report Ordering Provider Test Date Status TING MORA 07/12/2023 10:48:32 Final Observation Date Value Abnormality Reference (Units ) Status BUN 07/12/2023 10:48:32 14 6-20 (mg/dL) Final Creatinine 07/12/2023 10:48:32 0.8 0.5-1.0 (mg/dL) Final Glomerular filtration rate/1.73 sq M.predicted [Volume Rate/Area] in Serum, Plasma or Blood by Creatinine-based formula (CKD-EPI) 07/12/2023 10:48:32 84 >=60 (mL/min) Final eGFR is calculated based on the CKD-EPI 2020 equation Sodium 07/12/2023 10:48:32 141 135-146 (m mol/L) Final Potassium 07/12/2023 10:48:32 4.8 3.5-5.1 (m mol/L) Final Cl 07/12/2023 10:48:32 103 98-107 (mm ol/L) Final CO2 07/12/2023 10:48:32 27 22-32 (mmo l/L) Final Anion gap 07/12/2023 10:48:32 11 7-15 (mmol /L) Final Glucose 07/12/2023 10:48:32 94 70-120 (mg /dL) Final Calcium 07/12/2023 10:48:32 9.7 8.4-10.2 ( mg/dL) Final Performing Location LABORATORY [facility] [place] [address] - [address] [place] [address]
--- OUTSIDE RECORDS SUMMARY | 2024-01-06 03:14 | External Medical Summary ---
Author Name Unknown Address Unknown Organization K0G:[facility] [place] 57-[address] - [address] [place] [address] Laboratory Report Ordering Provider Test Date Status TING MORA 07/12/2023 10:48:32 Final Observation Date Value Abnormality Reference (Units ) Status Albumin 07/12/2023 10:48:32 4.1 3.8-5.0 (g/dL) Final AST (Aspartate aminotransferase) 07/12/2023 10:48:32 199 Above high normal 10-35 (U/L) Final Alk Phos 07/12/2023 10:48:32 871 Above high normal 35-130 (U/L) Final ALT (Alanine aminotransferase) 07/12/2023 10:48:32 219 Above high normal 10-35 (U/L) Final Bilirubin, Total 07/12/2023 10:48:32 1.4 Above high normal <=1.2 (mg/dL) Final Bilirubin, Direct 07/12/2023 10:48:32 0.6 Above high normal 0.0-0.3 (mg/dL) Final Protein 07/12/2023 10:48:32 7.9 6.0-8.3 (g/dL) Final Performing Location [facility]ORY [place] [address] [place] [address]
[2024-01-06] MEDS: ALBUMIN 25% 25 GM/100 ML VIAL IV ONE (05:57)
[2024-01-06 06:07] LABS: Basophils # (auto) 0.02 K/uL (0.00-0.20); Basophils % (auto) 0.5 %; Eosinophils # (auto) 0.14 K/uL (0.00-0.50); Eosinophils % (auto) 3.8 %; Hematocrit (blood only) 31.5 % (37.0-47.0); Hemoglobin 10.6 g/dl (12.0-16.0); Lymphocytes % (auto) 43.2 %; Mean Corpuscular Hemoglobin 32.2 pg (25.0-34.0); Mean Corpuscular Hgb Conc 33.7 g/dL (32.0-36.0); Mean Corpuscular Volume 95.7 fL (80.0-100.0); Mean Platelet Volume 9.2 fL (9.4-12.4); Monocytes # (auto) 0.29 K/uL (0.11-0.59); Monocytes % (auto) 7.8 %; Neutrophils # (auto) 1.65 K/uL (1.40-6.50); Neutrophils % (auto) 44.7 %; Platelet Count 144 K/uL (130-400); RDW Coefficient of Variation 14.7 % (11.5-14.5); RDW Standard Deviation 51.9 fL (36.4-46.3); Red Blood Count 3.29 M/uL (4.20-5.40)
[2024-01-06 06:24] LABS: Albumin Globulin Ratio 1.2 (0.9-2); Albumin Level 3.2 gm/dl (3.4-5.0); BUN Creatinine Ratio 15.1 (10-20); Bilirubin,Total 0.8 mg/dl (0.2-1.0); Calcium 8.1 mg/dl (8.6-10.3); Creatinine Clr Calc Pharmacy 61.7 ml/min; Globulin 2.7 gm/dl (2.5-4.0); Potassium 3.8 mmol/L (3.5-5.1); Total Protein 5.9 gm/dl (6.0-8.3)
[2024-01-06] MEDS: ESCITALOPRAM OXALATE 20 MG TAB PO SCH (08:18)
[2024-01-06] MEDS: CHOLECALCIFEROL 25 MCG (1000 UNITS) TAB PO SCH (08:19)
[2024-01-06] MEDS: MULTIVITAMIN TAB PO SCH (08:19)
[2024-01-06] MEDS: URSODIOL 500 MG EXT SCH (08:20)
[2024-01-06] MEDS: ACETAMINOPHEN 500 MG TAB PO PRN (08:26)
--- NOTE | 2024-01-06 08:28 | Electrocardiogram Report ---
Test Reason : Blood Pressure : */* mmHG Vent. Rate : 55 BPM Atrial Rate : 55 BPM P-R Int : 148 ms QRS Dur : 98 ms QT Int : 468 ms P-R-T Axes : 50 19 20 degrees QTcB Int : 447 ms Sinus bradycardia Possible Left atrial enlargement Abnormal ECG No previous ECGs available Confirmed by Pieter Nova ([id number]) on 01/06/2024 8:27:49 AM Referred By: REFERRED SELF Confirmed By: Pieter Nova
--- NOTE | 2024-01-06 10:54 | Urology Consultation ---
Date of Consultation January 06, 2024 Assessment & Plan (1) Ureteral calculi: (2) Hydronephrosis: (3) Hematuria: (4) Renal colic: Plan 58 yo female admitted with severe pain and hypertensive urgency and found to have bilateral obstructing ureteral stones. CT abdomen pelvis demonstrated at least 5 obstructing calculi in the distal left ureter which measure up to 8 mm causing moderate left hydroureteronephrosis, a 4mm obstructing calculus in the right proximal ureter just below the UPJ, and numerous additional nonobstructing calculi are seen in both kidneys. - Afebrile, mildly hypotensive this morning, otherwise stable vitals. - Labs today show no leukocytosis and normal renal function. - UA with +blood, but otherwise negative. Recently completed course of Cipro as outpatient for possible UTI (no culture data available). - We reviewed her CT findings of bilateral obstructing ureteral stones. We discussed acute stone management. Discussed recommendation for cystoscopy and bilateral ureteral stent placement. Ureteral stents were discussed as well as postoperative issues and pain management. She is aware additional procedures will be needed in the future for stone treatment. Risks and benefits were discussed. Expected clinical course reviewed, all questions were answered. She is agreeable to proceeding. - Will proceed to OR today for cystoscopy, bilateral retrograde pyelogram, bilateral ureteral stent placement. - Risks and benefits to be reviewed with patient by Dr. Connell. - Keep NPO. - Will cover with antibiotics preoperatively. - She is still making urine and voiding w/hematuria. Continue to monitor closely. - Continue supportive care, prn analgesics, prn antiemetics - Urology to follow. Attending note: Patient independently assessed, examined, interviewed, and evaluated. Patient with bilateral stones within the ureters. Does appear to have obstruction on the left. Possible partial obstruction bilaterally. Major concern is the development of bilateral obstructing stones. Reviewed possible need for urgent intervention. Patient has been having continual flank pain on the left side which has been increasing in severity. Agree with note as above. Patient's vitals and labs were all reviewed. Pertinent values in the HPI and plan section. Imaging was reviewed interpreted by myself. Agree with read. Vitals were reviewed. Discussed findings extensively with patient and family. Reviewed with nurse practitioner as well as consulting physicians/team. Patient's complicated medical and surgical history was reviewed and summarized above. Patient's surgical, medical, social, and family history were all reviewed with pertinent values as above. Discussed patient's current diagnosis as well as concerns and issues. Reviewed different options moving forward. Discussed potential risks and benefits as well as possible options and concerns. Reviewed potential surgical options and interventions. Discussed potential issues and concerns related to intervention. Risk and benefits were discussed extensively with patient and any available family. Discussed potential risks related to anesthesia. Discussed risks of bleeding infection and injury. Risks and benefits discussed at length for procedure. These include bleeding, infection, injury to surrounding tissues or organs, and risks associated with anesthesia. Patient states understanding and agrees to proceed. Will sign consent and proceed. Will plan for urgent procedure. Patient has numerous stones in the kidneys bilaterally. He did discuss possible need for intervention. Would likely need to control obstructive issues with time for decompression and then likely intervention once any infection or significant inflammation has improved. Will likely need to work on stones bilaterally in order to clear majority of the very numerous stone burden bilaterally. Plan to move forward with cystoscopy and possible bilateral retrograde pyelogram and stent placement. 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 She was afebrile on arrival but hypertensive. Labs showing no leukocytosis and normal renal function. Her urinalysis had 2+ blood,>20 RBC, 610 WBC, negative nitrite, negative bacteria. Patient had been on oral Cipro as an outpatient for possible UTI. She reports her urine culture was possibly growing Staphylococcus. She had a CT abdomen pelvis which was notable for at least 5 obstructing stones in the distal left ureter measuring up to 8 mm with moderate left hydronephrosis and a 4 mm obstructing stone in the right proximal ureter just below the UPJ with minimal right sided hydronephrosis. Numerous additional nonobstructing stones are seen in both kidneys. She is admitted to medicine service. CT abdomen pelvis- 1. There are at least 5 obstructing calculi in the distal left ureter which measure up to 8 mm. This causes moderate left hydroureteronephrosis. 2. There is a 4 mm obstructing calculus in the right proximal ureter just below the ureteropelvic junction. There is no significant right-sided hydronephrosis. 3. Numerous additional nonobstructing calculi are seen in both kidneys. 4. The liver is cirrhotic in morphology and heterogeneous attenuation. 5. Splenomegaly, esophageal varices, and abdominopelvic ascites indicate portal hypertension. 6. There is evidence of a nonspecific pancolitis. 7. The gallbladder is mildly distended, and the wall appears thickened/edematous. This may be related to adjacent hepatocellular disease and ascites. Correlate with clinical and laboratory findings for evidence of acute cholecystitis. 8. There is a mild and age indeterminant superior endplate compression fracture of L1 which appears acute to subacute. Correlate for point tenderness. Patient was seen at bedside today. She is awake and resting in bed on arrival. No acute distress. Still with flank pain, L>R. Has been managing with medications. Denies fever. Has been NPO. She is still making urine and voiding. Reports ongoing hematuria. No dysuria. She reports a history of kidney stones with prior intervention approximately 10 years ago. Allergies Allergy/AdvReac Type Severity Reaction Status Date / Time No Known Allergies Allergy Verified 01/05/24 20:26 Home Medications Medication Instructions Recorded Confirmed Type cholecalciferol (vitamin D3) 50 50 mcg PO QAM 01/05/24 01/05/24 History mcg (2,000 unit) tablet (Vitamin D3) ciprofloxacin HCl 500 mg tablet 500 mg PO Q12 01/05/24 01/05/24 History escitalopram oxalate 20 mg tablet 20 mg PO QAM 01/05/24 01/05/24 History multivitamin with minerals 1 tab PO DAILY 01/05/24 01/05/24 History (Hair,Skin and Nails tablet) tramadol 50 mg tablet 50 mg PO Q12 PRN Severe Pain 01/05/24 01/05/24 History (Scale Score 7-10) ursodiol 500 mg tablet 500 mg PO BIDM 01/05/24 01/05/24 History vitamin A 3,000 mcg (10,000 unit) 10,000 unit PO QPM 01/05/24 01/05/24 History capsule Patient History Medical History Elevated liver function tests Social History Smoking Status: Never smoker Do You Dip or Chew Tobacco: No; Hx Alcohol Use: Yes Alcohol type: wine Hx Substance Use: No Preferred Language: Ecuadorean Communication Ability: Effective Tile Designer Required: No Beliefs That Will Affect Care: None Current Living Situation: Spouse Feels Safe at Home: Yes Safety Concerns: Feels Safe At This Time Assistive Devices: None Review of Systems Review of Systems: All systems reviewed & are unremarkable except as noted in HPI & below Physical Exam Constitutional: no acute distress Respiratory: no respiratory distress and no labored breathing Musculoskeletal: Head/Neck/Chest: normocephalic Skin: No visible rashes or lesions to exposed skin areas Neurologic: moves all extremities and awake Psychiatric: A+Ox3, euthymic affect Results & Data Vital Signs (Past 12 Hours) Vital Signs Temp Pulse Pulse Resp BP Pulse Ox O2 Del Method 01/06/24 09:42 63 01/06/24 08:58 99 H 118/75 01/06/24 07:57 36.8 C 73 20 97/59 L 96 Room Air 01/06/24 03:21 36.5 C 58 L 16 109/63 96 Room Air 01/06/24 00:00 36.8 C 57 L 20 135/76 95 Room Air PG Care Time/CCT Total # of Minutes Spent Total Time Spent with Patient: Total time spent is greater than 50% in coordination of care (as documented) at patient's floor/unit and/or counseling patient: Coding Level of Care Code 16094 IN/OBS CONSULT LVL 4,60M Diagnoses Ureteral calculi N20.1 Hydronephrosis N13.2 Hydronephrosis type: with renal calculous obstruction Hematuria R31.0 Hematuria type: gross Renal colic N23 (2) Hydronephrosis Hydronephrosis type: with renal calculous obstruction Qualified Code(s): N13.2 - Hydronephrosis with renal and ureteral calculous obstruction (3) Hematuria Hematuria type: gross Qualified Code(s): R31.0 - Gross hematuria
[2024-01-06] MEDS: SODIUM CHLORIDE 0.9% 1,000 ML IV SCH (11:36)
--- NOTE | 2024-01-06 12:12 | Orthopedic Consultation ---
Date of Consultation January 06, 2024 Assessment & Plan (1) Compression fx, lumbar spine: Assessment age-indeterminate L1 compression fracture. Plan I had a discussion today with the patient and her family reviewing the compression fracture found on her abdominal CAT scan. At this point she is more concerned about having her kidney stones addressed. We have agreed to follow her up at a later date regarding her back pain. It is difficult to determine if this is contributing to her current symptoms or not. I have withheld any further imaging at this time until after her kidney stones are addressed. It would be reasonable for her to follow-up in the office in the future if she continues to have back pain otherwise we will sign off. History of Present Illness Reason for Consultation: Chronic back pain Attending Physician: Tamara Torres MD History of Present Illness This is a very pleasant 58-year-old female that is here in the hospital with kidney stones. She is currently awaiting stent placement. She was found to have an L1 compression fracture on abdominal CAT scan. I discussed this with the patient. She states she is has a history of chronic back pain and notes a fall approximately 4 weeks ago. She states that after the fall her symptoms had not changed. Her current back pain is clearly related to her kidney stones. She denies any numbness or tingling in the lower extremities or lower extremity weakness. Allergies Allergy/AdvReac Type Severity Reaction Status Date / Time No Known Allergies Allergy Verified 01/05/24 20:26 Home Medications Medication Instructions Recorded Confirmed Type cholecalciferol (vitamin D3) 50 50 mcg PO QAM 01/05/24 01/05/24 History mcg (2,000 unit) tablet (Vitamin D3) ciprofloxacin HCl 500 mg tablet 500 mg PO Q12 01/05/24 01/05/24 History escitalopram oxalate 20 mg tablet 20 mg PO QAM 01/05/24 01/05/24 History multivitamin with minerals 1 tab PO DAILY 01/05/24 01/05/24 History (Hair,Skin and Nails tablet) tramadol 50 mg tablet 50 mg PO Q12 PRN Severe Pain 01/05/24 01/05/24 History (Scale Score 7-10) ursodiol 500 mg tablet 500 mg PO BIDM 01/05/24 01/05/24 History vitamin A 3,000 mcg (10,000 unit) 10,000 unit PO QPM 01/05/24 01/05/24 History capsule Patient History Medical History Elevated liver function tests Social History Smoking Status: Never smoker Do You Dip or Chew Tobacco: No; Hx Alcohol Use: Yes Alcohol type: wine Hx Substance Use: No Preferred Language: Ugandan Communication Ability: Effective Loom Tuner Required: No Beliefs That Will Affect Care: None Current Living Situation: Spouse Feels Safe at Home: Yes Safety Concerns: Feels Safe At This Time Assistive Devices: None Physical Exam Physical Exam: On exam she is in bed. Her family is at the bedside. She is good strength testing extremities. Sensory is intact. Results & Data Vital Signs (Past 12 Hours) Vital Signs Temp Pulse Pulse Resp BP BP Pulse Ox 01/06/24 11:49 36.6 C 55 L 18 96/56 L 94 01/06/24 09:42 63 01/06/24 08:58 99 H 118/75 01/06/24 07:57 36.8 C 73 20 97/59 L 96 01/06/24 03:21 36.5 C 58 L 16 109/63 96 O2 Del Method 01/06/24 11:49 Room Air 01/06/24 09:42 01/06/24 08:58 01/06/24 07:57 Room Air 01/06/24 03:21 Room Air
[2024-01-06] MEDS: DICLOFENAC SOD 1% GEL 100 GM TUBE EXT SCH (12:48)
--- NOTE | 2024-01-06 12:52 | Hospitalist Progress Note ---
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 Patient denied any fever or chills. Patient recently completed 5 days of ciprofloxacin just prior to arrival for concern of UTI. Patient denies any improvement in her left flank pain and hence presented to the hospital. She is being managed for the following: Left flank painurine infection ruled out, UA negative for infection, patient denies any pain or burning while passing urine Or fever at presentation, patient completed 5 days of ciprofloxacin just prior to arrival. Obstructive uropathy secondary to urolithiasis, associated with hydronephrosis Patient presenting with left flank pain, on and off, for about a month, has history of renal stone., Admitting CTAP with at least 5 obstructing calculi in the distal left ureter measuring up to 8 mm and 4 mm obstructing calculus in the right proximal ureter just below the UPJ. Moderate left hydroureteronephrosis noted. Pain management Urology on board, plan for cystoscopy and bilateral ureteral stent placement today. Patient is n.p.o., utilize IV fluid, resume diet after the procedure. Continue with Flomax. Strain urine. Monitor off antibiotic. Hypertensive urgency: Blood pressure elevated at presentation likely secondary to pain. Patient started on 2.5 Mg lisinopril, will continue to monitor her blood pressure. Blood pressure better now.Will likely need echo as an outpatient, patient has been communicated to coordinate with PCP for the test. L1 compression fracture: Orthospine evaluated, conservative management, possible orthospine follow-up as an outpatient if continued low back pain.Will get vitamin D level. Right shoulder pain: For about 1 month per patient, will get right shoulder x- ray, diclofenac gel. Other chronic medical conditions: Continue with/resume home meds as when able. 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 SCDs re: hematuria Full code Admission and Anticipated Discharge Date Admission Date: January 05, 2024 Subjective patient was seen and examined at bedside. Patient was lying in bed, on room air, NAD, patient's also at bedside. Patient reports improvement in her left flank pain with pain medication in the hospital, she is n.p.o. for urological procedure later in the day, had occasional nausea, will put her on IV fluid while awaiting procedure. Patient noted to have left CVA tenderness on exam, denies any pain or burning while passing urine, urinalysis negative for infection, recently completed atleast 5 days worth of cipro GAMB CUTTER, will continue to monitor off antibiotic and follow-up on the left CVA angle tenderness clinically once stent placed. Patient also made aware of L1 compression fracture, will need follow-up with orthospine upon discharge. Patient also reported that she has right shoulder pain since about a month time, will get an x-ray. Will add diclofenac gel to right shoulder. Physical Exam Physical Exam: GENERAL: Comfortable, pleasant, no respiratory distress SKIN: Normal color, warm HEENT: Bespectacled, pink palpebral conjunctivae, no ptosis, moist buccal mucosa NECK : Supple, no tenderness CHEST : CTA, no tenderness HEART : RRR, no obvious murmurs ABDOMEN: soft, no distention, left-sided abdominal tenderness EXTREMITIES : No LE swelling/tenderness, no other conspicuous deformities noted NEUROLOGIC : Coherent, no facial asymmetry, no other gross focality Results & Data Results & Data Vital Signs (Past 12 Hours) Vital Signs Temp Pulse Pulse Resp BP BP Pulse Ox 01/06/24 11:49 36.6 C 55 L 18 96/56 L 94 01/06/24 09:42 63 01/06/24 08:58 99 H 118/75 01/06/24 07:57 36.8 C 73 20 97/59 L 96 01/06/24 03:21 36.5 C 58 L 16 109/63 96 O2 Del Method 01/06/24 11:49 Room Air 01/06/24 09:42 01/06/24 08:58 01/06/24 07:57 Room Air 01/06/24 03:21 Room Air
[2024-01-06] MEDS ORDERED: fentaNYL citrate PF 100 MCG/2 ML VIAL ONE (13:34)
[2024-01-06] MEDS ORDERED: MIDAZOLAM HCL 1 MG/ML 2ML VIAL ONE (13:34)
[2024-01-06] MEDS ORDERED: PROPOFOL IV EMULSION 10 MG/ML 20 ML VIAL IV ONE (13:34)
--- NOTE | 2024-01-06 14:01 | Anesthesiology Consultation ---
Date of Service January 06, 2024 Assessment & Plan Chart Review Chart Review: Acceptable Risk for Surgery and Patient NOT seen in Pre Admission Testing Consults Requested none ASA ASA3 Proposed Anesthesia Anesthesia Type: MAC Risk / Benefits Reviewed With: PT / POA / Parent / Guardian, Accepts Plan and Informed Consent Obtained History Surgery Operation Date: 01/06/24 07:00 Proposed Procedures p Cystoscopy, Bilateral Retrograde Pyelogram, Bilateral Stent Insertions - Hubert Connell, DO Height/Weight Height: 5 ft 6 in Weight: 69.6 kg Allergies Allergy/AdvReac Type Severity Reaction Status Date / Time No Known Allergies Allergy Verified 01/05/24 20:26 Medications Home Medications Medication Instructions Recorded Confirmed Last Taken cholecalciferol (vitamin D3) 50 50 mcg PO QAM 01/05/24 01/05/24 01/04/24 mcg (2,000 unit) tablet (Vitamin D3) ciprofloxacin HCl 500 mg tablet 500 mg PO Q12 01/05/24 01/05/24 01/04/24 escitalopram oxalate 20 mg tablet 20 mg PO QAM 01/05/24 01/05/24 01/04/24 multivitamin with minerals 1 tab PO DAILY 01/05/24 01/05/24 01/04/24 (Hair,Skin and Nails tablet) tramadol 50 mg tablet 50 mg PO Q12 PRN Severe Pain 01/05/24 01/05/24 Unknown (Scale Score 7-10) ursodiol 500 mg tablet 500 mg PO BIDM 01/05/24 01/05/24 01/04/24 vitamin A 3,000 mcg (10,000 unit) 10,000 unit PO QPM 01/05/24 01/05/24 01/04/24 capsule Active Medications Generic Name Dose Route Start Last Admin Trade Name Freq PRN Reason Stop Dose Admin Acetaminophen 500 mg 01/05/24 20:15 01/06/24 08:26 Acetaminophen 500 Mg Tab PO 02/04/24 20:14 500 mg Q6H PRN Administration fever/pain Diclofenac Sodium 2 gm 01/06/24 11:30 01/06/24 12:48 Diclofenac Sod 1% Gel 100 Gm Tube EXT 02/05/24 11:29 2 gm Q6H EVER Administration Protocol Escitalopram Oxalate 20 mg 01/06/24 09:00 01/06/24 08:18 Escitalopram Oxalate 20 Mg Tab PO 02/05/24 08:59 20 mg QAM EVER Administration Promethazine HCl 6.25 mg in 50.25 mls @ 201 mls/hr 01/05/24 20:15 01/06/24 13:19 Phenergan IV 02/04/24 20:14 Infused Q6H PRN Infusion Nausea And Vomiting Sodium Chloride 1,000 mls @ 80 mls/hr 01/06/24 11:30 01/06/24 11:36 Nss IV 01/06/24 23:59 80 mls/hr .[id number] EVER Administration Lisinopril 2.5 mg 01/05/24 21:15 01/05/24 21:59 Lisinopril 2.5 Mg Tab PO 02/04/24 21:14 2.5 mg HS EVER Administration Miscellaneous 1 each 01/06/24 08:00 01/06/24 08:21 Order Awaiting Action: Vitamin A 3,000 Mcg (10,000 Unit) Capsule N/A 02/05/24 07:59 Not Given QS EVER Morphine Sulfate 4 mg 01/05/24 20:15 01/06/24 08:59 Morphine Sulfate 4 Mg/Ml 1 Ml Carp\Vial IV 01/19/24 20:14 4 mg Q4H PRN Administration Pain Multivitamins 1 tab 01/06/24 09:00 01/06/24 08:19 Multivitamin Tab PO 02/05/24 08:59 1 tab DAILY EVER Administration Ursodiol 500mg 1 each 01/06/24 08:00 01/06/24 08:20 Tablet: Non- EXT 02/05/24 07:59 500 mg Formulary Patient's BIDM EVER Administration Own Med Oxycodone HCl 5 - 10 mg 01/05/24 20:15 01/05/24 21:26 Oxycodone Hcl Ir 5 Mg Tab (Immediate Release) PO 01/19/24 20:14 10 mg QID PRN Administration Pain Tamsulosin HCl 0.4 mg 01/05/24 21:50 01/05/24 22:05 Tamsulosin Hcl 0.4 Mg Cap PO 02/04/24 21:49 0.4 mg HS EVER Administration Vitamin D 50 mcg 01/06/24 09:00 01/06/24 08:19 Cholecalciferol 25 Mcg (1000 Units) Tab PO 02/05/24 08:59 50 mcg QAM EVER Administration NPO Date Last Intake of Fluids: 01/05/24 Time Last Intake of Fluids: 23:00 Last Intake of Fluids Comment: 1000 am today sip water w/ meds Date Last Intake of Solids: 01/05/24 Time Last Intake of Solids: 22:00 Past Medical History Medical History Elevated liver function tests Exercise / Class Metabolic Activity II 4-5 Yardwork/Stairs/Walk up hill Past Anesthesia History No Hx of Anesthesia Complications and No Family Hx of Anesthesia Complications History of PONV No Hx of PONV and No Hx of Motion Sickness Social History Smoking Status: Never smoker Do You Dip or Chew Tobacco: No Hx Alcohol Use: Yes Alcohol type: wine alcohol intake frequency: holidays/special occasions only Hx Substance Use: No Physical Exam Vital Signs Last Vital Signs Temp 36.8 C 01/06/24 13:39 Pulse 51 L 01/06/24 13:39 Resp 20 01/06/24 13:39 BP 136/92 01/06/24 13:39 Pulse Ox 93 01/06/24 13:39 O2 Del Method Room Air 01/06/24 13:39 Constitutional not cachectic ENMT Mouth: no dentition abnormality Thyromental Distance: < 3.5 Finger Breadths Mallampati Class: II Neck normal visual inspection and trachea midline; neck extension not limited Respiratory normal respiratory effort Auscultation: lungs clear to auscultation bilaterally Cardiovascular Rate/Rhythm: regular rate and regular rhythm Heart Sounds: no murmur Vessels: no carotid bruit Musculoskeletal Spine: normal cervical ROM and no pain with cervical ROM Extremities: extremities normal to inspection; full ROM of extremities Neurologic moves all extremities Motor/Sensory: no sensory deficit Psychiatric Orientation: alert and oriented x 3 Testing Laboratory Results 01/06/24 05:34 01/06/24 05:34 PT 10.4 Seconds (9.0-12.0) 01/05/24 19:05 INR 1.0 (0.9-1.1) 01/05/24 19:05 APTT 25 Seconds (21-31) 01/05/24 19:05 Urine Color Red 01/05/24 Unknown Urine Appearance Turbid (Clear) A 01/05/24 Unknown Urine pH 7.0 (4.5-7.5) 01/05/24 Unknown Ur Specific [place] >= 1.030 (1.000-1.030) 01/05/24 Unknown Urine Protein 3+ (Negative) H 01/05/24 Unknown Urine Glucose (UA) Negative (Negative) 01/05/24 Unknown Urine Ketones Negative (Negative) 01/05/24 Unknown Urine Nitrite Negative (Negative) 01/05/24 Unknown Ur Leukocyte Esterase Negative (Negative) 01/05/24 Unknown Urine RBC >20 /hpf (0-2) H 01/05/24 Unknown Urine WBC 6-10 /hpf (0-5) H 01/05/24 Unknown Ur Epithelial Cells 0-2 /hpf (0-2) 01/05/24 Unknown 01/06/24 11:06 POC Glucose 98 Electrocardiogram Date: 01/05/24 Findings: + SB @ (@ 55)
[2024-01-06] MEDS ORDERED: PROMETHAZINE HCL 6.25 MG in SODIUM CHLORIDE 0.9% 50 ML IV PRN (14:06)
[2024-01-06] MEDS ORDERED: fentaNYL citrate PF 100 MCG/2 ML VIAL IV PRN (14:06)
[2024-01-06] MEDS ORDERED: FLUMAZENIL 0.1 MG/1 ML 10 ML VIAL IV PRN (14:06)
[2024-01-06] MEDS ORDERED: ePHEDrine sulfate 50 MG/ML AMP IV PRN (14:06)
[2024-01-06] MEDS ORDERED: NALOXONE HCL 0.4 MG/1 ML VIAL/CARP IV PRN (14:06)
[2024-01-06] MEDS ORDERED: ATROPINE SULFATE 0.1 MG/ML 10ML SYR IV PRN (14:06)
[2024-01-06] MEDS: ceFAZolin 2000MG 2,000 MG/15 ML SYR IV SCH (14:14)
[2024-01-06] MEDS ORDERED: LIDOCAINE 2% 2 ML VIAL/AMP(20MG/ML) INFIL ONE (14:35)
[2024-01-06] MEDS ORDERED: ONDANSETRON INJ 2 MG/ML 2 ML VIAL ONE (14:35)
--- NOTE | 2024-01-06 14:51 | Operative Report ---
PG Post Operative Report Pre & Post Diagnosis Operation Date: 01/06/24 07:00 Pre-Op Diagnosis: OBS UROPATHY Post-Op Diagnosis: OBS UROPATHY I identified the patient and participated in the time-out.: Yes Procedure Operation Date: 01/06/24 07:00 Actual Procedures Cystoscopy, Bilateral Retrograde Pyelogram, Bilateral Stent Insertions. Left Aspiration of the Kidney Right Ureteral dilation - Hubert Connell DO Surgeon Hubert Connell, II, DO Brancher None Estimated Blood Loss 1 Findings Consistent with Post-Op Diagnosis Stent placed in good position. Dark urine with hematuria on the left. Significant hydronephrosis. Stricture of the distal right ureter/UO. Dilated. Specimens None Drains 4.8 Fr x 24 cm bilateral Anesthesia Type MAC Complications none Disposition Disposition: Recovery Room Indications Patient with obstruction. Risks and benefits discussed at length. Description of Procedure Patient was consented and brought back to the operating room. Patient was placed under anesthesia in the supine position and moved to the dorsal lithotomy position. Patient was prepped and draped in the regular sterile fashion. A time out was completed. A 30degree Cystoscope was placed into the bladder and the entire bladder was examined. The UO's were identified. The left was the first side assessed. The UO was cannulized with a catheter and significant dark bloody urine was noted. Urine was aspirated from the renal pelvis and sent for culture. The catheter was pulled back and a retrograde pyelogram was completed. Significant hydronephrosis was noted. A wire was then placed. With the wire in place, a 4.8 Fr Double J stent was placed. It was confirmed with fluoroscopy. Attention was then taken to the right side. The UO was cannulized with a catheter however a significant stricture was noted in the distal ureter/UO. The wire was attempted and after multiple attempts was able to advance into the ureter. The distal ureter was dilated at the UO. The catheter was then able to enter and a retrograde pyelogram was completed. With the wire in place, a 4.8 Fr Double J stent was placed. It was confirmed with fluoroscopy. With the stents in place, the bladder was emptied. The scope was removed. The patient was cleaned, aroused from anesthesia, and transferred to the pacu in stable condition having tolerated the procedure well with no complications. I was present and participated in all aspects of the procedure. The patient will be monitored in the PACU until transferred. Plan to monitor after procedure. Likely can set up stone treatment bilaterally after adequate treatment and time for drainage. I attest to the content of the Intraoperative Record and any orders documented therein. Any exceptions are noted below.
--- NOTE | 2024-01-06 15:04 | Fluoroscopy Report ---
FL retrograde includes kub CLINICAL HISTORY: B/L CYSTO, RETROGRADEbilateral cystourethrogram COMPARISON STUDY: CT 01/05/2024 FLUOROSCOPY TIME: 65.8 seconds FLUOROSCOPY IMAGES: 5 EXPOSURE DOSE: 9.5 to mGy FINDINGS: Bilateral cystourethrogram with mild dilation of the left renal collecting system with blun ting of the calyces. Status post placement of bilateral ureteral stents which appear to be in satisfa ctory positioning. IMPRESSION: Fluoroscopic assistance as above. ACT 112: Negative or not required by law. Electronically signed by: Héctor Spicer M.D. 01/06/2024 3:03 PM
--- NOTE | 2024-01-06 15:19 | Anesthesiology Progress Note ---
Date of Service January 06, 2024 Anesthesia Post Procedure Vital Signs Vital Signs: Temp Pulse Pulse Resp BP BP BP 01/06/24 15:05 36.9 C 58 L 16 128/66 01/06/24 14:55 52 L 14 105/62 01/06/24 14:46 37 C 63 15 109/71 01/06/24 13:39 36.8 C 51 L 20 136/92 01/06/24 11:49 36.6 C 55 L 18 96/56 L 01/06/24 09:42 63 01/06/24 08:58 99 H 118/75 01/06/24 07:57 36.8 C 73 20 97/59 L 01/06/24 03:21 36.5 C 58 L 16 109/63 01/06/24 00:00 36.8 C 57 L 20 135/76 01/05/24 21:43 66 01/05/24 21:30 36.4 C L 61 16 166/82 H 01/05/24 21:29 01/05/24 21:13 74 01/05/24 20:57 60 01/05/24 20:45 59 L 17 162/96 H 01/05/24 20:15 57 L 18 162/96 H 01/05/24 20:06 62 18 154/94 H 01/05/24 19:59 163/103 H 01/05/24 19:54 72 18 01/05/24 19:48 69 01/05/24 18:43 36.7 C 76 20 173/124 H Pulse Ox Pulse Ox O2 Del Method O2 Del Method O2 Flow Rate 01/06/24 15:05 97 Room Air 01/06/24 14:55 100 Oxymask 5 01/06/24 14:46 95 Oxymask 5 01/06/24 13:39 93 Room Air 01/06/24 11:49 94 Room Air 01/06/24 09:42 01/06/24 08:58 01/06/24 07:57 96 Room Air 01/06/24 03:21 96 Room Air 01/06/24 00:00 95 Room Air 01/05/24 21:43 01/05/24 21:30 97 Room Air 01/05/24 21:29 96 Room Air 01/05/24 21:13 01/05/24 20:57 Room Air 01/05/24 20:45 96 10/31/24 20:15 98 Room Air 01/05/24 20:06 95 01/05/24 19:59 01/05/24 19:54 98 01/05/24 19:48 01/05/24 18:43 97 Room Air Pain Intensity Left Abdomen: Pain Intensity: 5 Transfer of Care Handoff Completed per policy Notes Mental Status: alert / awake / arousable and participated in evaluation Patient Amnestic to Procedure: Yes Nausea / Vomiting: adequately controlled Pain: adequately controlled Airway Patency, RR, SpO2: stable & adequate BP & HR: stable & adequate Hydration State: stable & adequate Anesthetic Complications: no major complications apparent and Pt Satisfied with anesthetic care
[2024-01-07 08:50] LABS: Hemoglobin 11.2 g/dl (12.0-16.0); Mean Corpuscular Hemoglobin 31.6 pg (25.0-34.0); Mean Corpuscular Hgb Conc 32.9 g/dL (32.0-36.0); Mean Platelet Volume 9.4 fL (9.4-12.4); Platelet Count 145 K/uL (130-400); RDW Coefficient of Variation 14.6 % (11.5-14.5); RDW Standard Deviation 51.6 fL (36.4-46.3); Red Blood Count 3.54 M/uL (4.20-5.40); White Blood Count 3.88 K/ul (4.8-10.8)
[2024-01-07 09:02] LABS: BUN Creatinine Ratio 18.3 (10-20); Calcium 8.6 mg/dl (8.6-10.3); Creatinine Clr Calc Pharmacy 75.9 ml/min; Magnesium 1.9 mg/dl (1.7-2.4); Phosphorus 3.3 mg/dl (2.5-4.9); Potassium 3.8 mmol/L (3.5-5.1)
--- NOTE | 2024-01-07 16:26 | Hospitalist Progress Note ---
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 Patient denied any fever or chills. Patient recently completed 5 days of ciprofloxacin just prior to arrival for concern of UTI. Patient denies any improvement in her left flank pain and hence presented to the hospital. She is being managed for the following: Left flank painurine infection ruled out, UA negative for infection, patient denies any pain or burning while passing urine Or fever at presentation, patient completed 5 days of ciprofloxacin just prior to arrival. Obstructive uropathy secondary to urolithiasis, associated with hydronephrosis Patient presenting with left flank pain, on and off, for about a month, has history of renal stone., Admitting CTAP with at least 5 obstructing calculi in the distal left ureter measuring up to 8 mm and 4 mm obstructing calculus in the right proximal ureter just below the UPJ. Moderate left hydroureteronephrosis noted. Pain management Urology on board, s/p bilateral ureteral stent placement 01/05. Patient reports improvement in her left flank tenderness and CVA tenderness on exam improving. Continue to monitor off antibiotic, await urine culture final results. Follow-up with urology upon discharge. Hypertensive urgency: Blood pressure elevated at presentation likely secondary to pain. Patient started on 2.5 Mg lisinopril, will continue to monitor her blood pressure. Blood pressure better now. Will likely need echo as an outpatient, patient has been communicated to coordinate with PCP for the test. L1 compression fracture: Orthospine evaluated, conservative management, possible orthospine follow-up as an outpatient if continued low back pain. Vit D level low, increase vit d supplementation. Right shoulder pain: For about 1 month per patient, right shoulder x-ray no acute issues per my interpretation, formal read pending, diclofenac gel. Called radio department if they can put her on priority so that I can decide on her discharge, request was acknowledged but read is still pending so likely dc viktoriya. Pt reports pain improvement w/ gel. Other chronic medical conditions: Continue with/resume home meds as when able. 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 SCDs re: hematuria Full code Dispo: pending formal read xr rt shoulder. will also watch for final urine cx. Admission and Anticipated Discharge Date Admission Date: January 05, 2024 Subjective Patient was seen and examined at bedside. Patient was lying in bed, on room air, NAD. Pt Reports improvement in her left flank pain, reports some dysuria after stent placement. Patient reports improvement in her right shoulder pain with diclofenac gel. Urine culture results and shoulder x-ray read are pending, patient offers no other complaints. Physical Exam Physical Exam: GENERAL: Comfortable, pleasant, no respiratory distress SKIN: Normal color, warm HEENT: Bespectacled, pink palpebral conjunctivae, no ptosis, moist buccal mucosa NECK : Supple, no tenderness CHEST : CTA, no tenderness HEART : RRR, no obvious murmurs ABDOMEN: soft, no distention, left-sided abdominal tenderness improving EXTREMITIES : No LE swelling/tenderness, no other conspicuous deformities noted NEUROLOGIC : Coherent, no facial asymmetry, no other gross focality Results & Data Results & Data Vital Signs (Past 12 Hours) Vital Signs Temp Pulse Pulse Resp BP Pulse Ox O2 Del Method 01/07/24 15:29 36.6 C 59 L 15 157/83 H 95 Room Air 01/07/24 11:27 36.8 C 58 L 16 123/72 95 Room Air 01/07/24 08:36 60 01/07/24 07:38 36.8 C 59 L 16 143/77 H 94 Room Air
--- NOTE | 2024-01-07 16:31 | XRay Report ---
EXAM: XR shoulder RT min 2V routine CLINICAL HISTORY: RT SHOULDER PAIN X 1MONTH BME TECHNIQUE: X-ray images of the right shoulder were obtained in anteroposterior (AP) and Y-view projections. COMPARISON: No prior studies available for comparison. FINDINGS: Bone Structure: Bone structure is normal and aligned. No evidence of acute shoulder joint fracture or dislocation. Humeral head is properly positioned in the glenoid fossa. No osseous lesions or abnormalities identified. Hypertrophic changes with osteophytosis seen at the acromioclavicular joint suggesting degenerative arthropathy Abnormal alignment of the articular surfaces of the acromion and clavicle are seen at the acromioclavicular joint with the distal clavicle being slightly inferiorly positioned, this may be positional, needs clinical correlation. Glenohumeral joint normal. No evidence of joint effusion or subluxation. Soft Tissues: Soft ossific densities seen in the supra articular soft tissues of the acromioclavicular joint, focal lucency in distal clavicle articular surface seen, Loose bodies versus avulsion fracture at this site would need exclusion. IMPRESSION: 1. Acromioclavicular arthropathy. 2. Slightly indistinct distal end of clavicle showing subtle lucencies, and ossific densities in adjacent soft tissues, avulsion fracture at this site would need exclusion 3. The glenohumeral joint appears grossly unremarkable 4. Kindly clinically correlate also. Further evaluation by MRI shoulder joint may be obtained if clinically indicated Disclaimer: A subtle bone abnormality or fracture may not be readily apparent on X-rays, thus clinical correlation and further imaging including follow-up CT, MRI, or follow-up X-rays are advised as needed. Electronically signed by Mateus Craven 01-07-2024 4:30 PM
[2024-01-07] MEDS: CHOLECALCIFEROL 125 MCG (5,000 UNITS) TAB PO SCH (17:15)
[2024-01-07] MEDS: VITAMIN A PO SCH (22:42)
[2024-01-08 06:49] LABS: Hematocrit (blood only) 35.1 % (37.0-47.0); Mean Corpuscular Hemoglobin 32.1 pg (25.0-34.0); Mean Corpuscular Hgb Conc 34.2 g/dL (32.0-36.0); Mean Corpuscular Volume 93.9 fL (80.0-100.0); Mean Platelet Volume 9.6 fL (9.4-12.4); Platelet Count 139 K/uL (130-400); RDW Coefficient of Variation 14.6 % (11.5-14.5); RDW Standard Deviation 50.4 fL (36.4-46.3); Red Blood Count 3.74 M/uL (4.20-5.40); White Blood Count 3.76 K/ul (4.8-10.8)
[2024-01-08 07:04] LABS: Calcium 8.8 mg/dl (8.6-10.3); Creatinine Clr Calc Pharmacy 83.2 ml/min; Magnesium 1.8 mg/dl (1.7-2.4); Phosphorus 2.7 mg/dl (2.5-4.9)
--- NOTE | 2024-01-08 07:29 | Orthopedic Consultation ---
Date of Service January 08, 2024 Assessment & Plan (1) Right shoulder strain: I went over diagnosis and treatment options with her at bedside. I think she simply strained her right shoulder. She still has decent function but it is pretty sore. I did not see any fractures on the x-ray and I saw normal postop erative changes from her previous surgery. She can follow-up in our office at any time for further treatment of the shoulder. We could try cortisone injections or even an MRI in the future if needed. Orthopedic discharge instructions were placed in the discharge summary. Please call if you need any further assistance. History of Present Illness Reason for Consultation: Right shoulder pain. Requesting Physician: . Attending Physician: Tamara Torres MD Rosie is a pleasant 58-year-old female who underwent a right shoulder arthroscopy at [facility] about 10 years ago. She had an acromioplasty and distal clavicle resection at that time. Her shoulder was doing well until bout a month ago when her dog pulled hard on the leash. She has been having right shoulder pain since. She has been hospitalized for medical issues, however, she was complaining of some right shoulder pain. An x- ray was done of her right shoulder and orthopedics was consulted to evaluate and treat.. Allergies Allergy/AdvReac Type Severity Reaction Status Date / Time No Known Allergies Allergy Verified 01/05/24 20:26 Home Medications Medication Instructions Recorded Confirmed Type cholecalciferol (vitamin D3) 50 50 mcg PO QAM 01/05/24 01/05/24 History mcg (2,000 unit) tablet (Vitamin D3) ciprofloxacin HCl 500 mg tablet 500 mg PO Q12 01/05/24 01/05/24 History escitalopram oxalate 20 mg tablet 20 mg PO QAM 01/05/24 01/05/24 History multivitamin with minerals 1 tab PO DAILY 01/05/24 01/05/24 History (Hair,Skin and Nails tablet) tramadol 50 mg tablet 50 mg PO Q12 PRN Severe Pain 01/05/24 01/05/24 History (Scale Score 7-10) ursodiol 500 mg tablet 500 mg PO BIDM 01/05/24 01/05/24 History vitamin A 3,000 mcg (10,000 unit) 10,000 unit PO QPM 01/05/24 01/05/24 History capsule Past Med/Surg History Problem List (Updated 01/08/24 @ 07:28 by Gadiel Kaiser DO) Right shoulder strain Compression fx, lumbar spine Ureteral calculi Asymptomatic hypertensive urgency Elevated liver enzymes (Acute) Hypertension (Acute) Hydronephrosis (Acute) Hematuria (Acute) Renal colic (Acute) Medical History Elevated liver function tests Social History Smoking Status: Never smoker Do You Dip or Chew Tobacco: No; Hx Alcohol Use: Yes Alcohol type: wine Hx Substance Use: No Preferred Language: Polish Communication Ability: Effective Recording Clerk Required: No Beliefs That Will Affect Care: None Current Living Situation: Spouse Feels Safe at Home: Yes Safety Concerns: Feels Safe At This Time Assistive Devices: None Review of Systems All systems reviewed & are unremarkable except as noted in HPI & below. Physical Exam On physical exam of the right shoulder, she has decent range of motion. She is about 130 degrees forward elevation 130 degrees of abduction. She has 4+ out of 5 motion at the full can testing and external rotation. She does have pain at end ranges of motion. She has pain in the subacromial space.. Constitutional WD/WN, vitals as above Eyes PERRL, conjunctivae normal, anicteric sclerae ENMT external ear and nose normal, oropharynx normal Neck trachea midline, no thyromegaly Respiratory normal respiratory effort Cardiovascular RRR, no murmur, no edema Gastrointestinal (Abdomen) normal bowel sounds, soft, nontender, no hepatosplenomegaly Psychiatric A+Ox3, euthymic affect Results & Data Results & Data Laboratory Results . Diagnostic Findings X-rays of the right shoulder show no evidence of fracture. There are signs of previous acromioplasty and distal clavicle resection.. PG Care Time/CCT Total # of Minutes Spent Total Time Spent with Patient: Total time spent is greater than 50% in coordination of care (as documented) at patient's floor/unit and/or counseling patient: Coding Level of Care Code 35282 IN/OBS CONSULT LVL 4,60M Diagnoses Right shoulder strain S46.911A
[2024-01-08 09:04] VITALS: RESP 16; TEMP 97.2; O2SAT 97
--- NOTE | 2024-01-08 11:17 | Discharge Summary ---
Date of Service January 08, 2024 Admission HPI Per Admitting Provider History obtained from patient, family, and records. 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 1 month history of intermittent left flank pain, hematuria symptoms similar to kidney stone attacks in the past. Possible passage of stone at home. No fever, no chills, Some nausea. Patient seen at PCPs office last week. Outpatient imaging contemplated. Patient started on Cipro course for possible UTI. Outpatient urine CS possibly growing Staphylococcus as per patient. No improvement in symptoms. SBP 170s upon arrival at the ER. Denies headache, chest pain, or unusual SOB. 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 Admission Exam Per Admitting Provider GENERAL: Comfortable, pleasant, no respiratory distress SKIN: Normal color, warm HEENT: Bespectacled, pink palpebral conjunctivae, no ptosis, dry buccal mucosa NECK : Supple, no tenderness CHEST : CTA, no tenderness HEART : RRR, no obvious murmurs ABDOMEN: Some distention, left-sided abdominal tenderness EXTREMITIES : No LE swelling/tenderness, no other conspicuous deformities noted NEUROLOGIC : Coherent, no facial asymmetry, no other gross focality Principal Diagnosis Left flank pain Obstructive uropathy secondary to urolithiasis Hypertensive urgency L1 compression fracture Right shoulder pain Discharge Exam GENERAL: Comfortable, pleasant, no respiratory distress SKIN: Normal color, warm HEENT: Bespectacled, pink palpebral conjunctivae, no ptosis, moist buccal mucosa NECK : Supple, no tenderness CHEST : CTA, no tenderness HEART : RRR, no obvious murmurs ABDOMEN: soft, no distention, left-sided abdominal tenderness resolved, no cva angle tenderness. EXTREMITIES : No LE swelling/tenderness, no other conspicuous deformities noted NEUROLOGIC : Coherent, no facial asymmetry, no other gross focality Discharge Data Allergies Allergy/AdvReac Type Severity Reaction Status Date / Time No Known Allergies Allergy Verified 01/05/24 20:26 Consultations 01/05/24 19:58 ED Decision to Admit Stat 01/05/24 21:29 Consult Urology Routine 01/06/24 11:31 Consult Orthopedic Spine Surgery Routine 01/07/24 17:37 Consult Orthopedic Surgery Routine Procedures Performed Operation Date: 01/06/24 07:00 Actual Procedures p Cystoscopy, Bilateral Retrograde Pyelogram, Bilateral Stent Insertions(Bilateral) - Hubert Connell, Ordered Studies 01/05/24 18:57 CT abd pelvis wo con Stat 01/06/24 14:15 FL retrograde includes kub Routine Hospital Course (1) Asymptomatic hypertensive urgency: 58-year-old lady with PMH of liver 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 Patient denied any fever or chills. Patient recently completed 5 days of ciprofloxacin just prior to arrival for concern of UTI. Patient denies any improvement in her left flank pain and hence presented to the hospital. She was managed for the following: Left flank painurine infection ruled out, UA negative for infection, patient denies any pain or burning while passing urine Or fever at presentation, patient completed 5 days of ciprofloxacin just prior to arrival. Obstructive uropathy secondary to urolithiasis, associated with hydronephrosis Patient presenting with left flank pain, on and off, for about a month, has history of renal stone., Admitting CTAP with at least 5 obstructing calculi in the distal left ureter measuring up to 8 mm and 4 mm obstructing calculus in the right proximal ureter just below the UPJ. Moderate left hydroureteronephrosis noted. Urology evaled, s/p bilateral ureteral stent placement 01/05. Patient reports improvement in her left flank tenderness and CVA tenderness on exam seems resolved. Continue to monitor off antibiotic, await urine culture final results. Patient has been made aware to follow-up on the final results of the urine culture during her PCP visit within a week time upon discharge. Follow-up with urology upon discharge. Hypertensive urgency: Blood pressure elevated at presentation likely secondary to pain. Patient started on 2.5 Mg lisinopril, Blood pressure better now. Will likely need echo as an outpatient, patient has been communicated to coordinate with PCP for the test. L1 compression fracture: Orthospine evaluated, conservative management, possible orthospine follow-up as an outpatient if continued low back pain. Vit D level low, increase vit d supplementation. Right shoulder pain: For about 1 month per patient, right shoulder x-ray Reviewed, Ortho evaluated, continue with diclofenac gel and possible orthopedics follow-up if no improvement in pain. Other chronic medical conditions: Continue with/resume home meds as when able. 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 SCDs re: hematuria Full code Patient is being discharged to home with following instruction at the point of discharge: Follow-up with your primary care physician within a week time and likely you will need labs CBC/CMP/magnesium/phosphorus. You were treated for obstructive uropathy, you received bilateral ureteral stent, you will need to follow-up with urology in 2 to 4 weeks time upon discharge. Your blood pressure was elevated while in hospital, you have been started on a small dose of lisinopril, may start your blood pressure twice a day, maintain your log to take to primary care physician for ongoing evaluation/management of your hypertension. As discussed at the bedside, you will likely benefit from outpatient echocardiogram given hypertension. Coordinate with your PCP office to set up the test. For your L1 compression fracture, orthospine evaluated you, recommend you establish with orthospine physician as an outpatient. For your right shoulder pain, orthopedics evaluated you, if no improvement in pain, follow-up with orthopedics as an outpatient. Your vitamin D level was low, your vitamin D supplement has been increased from 50 oh to 125 mcg daily. You will need repeat vitamin D level in about a month's time, coordinate with your PCP office to set up the test. Take your medications as prescribed. Please make sure that you are able to get your medications today by calling your pharmacy before you leave the hospital so that your treatment continuity is not broken. Home Health Attestation I certify that this patient is under my care and that I, or a physicians tmd teacher assistant working with me, had a face to-face encounter that meets the home health [id number] encounter requirements with this patient. The encounter with the patient was in whole, or in part, for the following medical condition, which is the primary reason for home health care (list medical condition): I certify that, based on my findings, the following services are medically necessary home health services: My clinical findings support the need for the above services because: Further, I certify that my clinical findings support that this patient is homebound (i.e. absences from home require considerable and taxing effort and are for medical reasons or anabaptist services or infrequently or of short duration when for other reasons) because: Certification for Home Health Services: Based on the above findings, I certify that this patient is confined to the home and needs intermittent halfway care, physical therapy and/or speech therapy or continues to need occupational therapy. The patient is under my care, and I have initiated the establishment of the plan of care. This patient will be followed by a physician who will periodically review the plan of care. Total Time Total Time Spent Total Time Spent (In Minutes): 45 Discharge Plan Discharge Items Patient Disposition: Home - Self-Care Reason For Visit: HTN URG, OBS UROPATHY Discharge Diagnosis: Left flank pain Obstructive uropathy secondary to urolithiasis Hypertensive urgency L1 compression fracture Right shoulder pain Condition on Discharge: Fair Activity: Resume your previous activity Non-emergency contact: Primary Care Provider Call non-emergency contact if: you have any medication questions, your symptoms worsen and your temperature is above 101 Follow-up/Referrals: Mary Grace Walker CRNP [Primary Care Provider] - Diet: Heart Healthy Addtl Attending Provider Instructions: Follow-up with your primary care physician within a week time and likely you will need labs CBC/CMP/magnesium/phosphorus. You were treated for obstructive uropathy, you received bilateral ureteral stent, you will need to follow-up with urology in 2 to 4 weeks time upon discharge. Your blood pressure was elevated while in hospital, you have been started on a small dose of lisinopril, may start your blood pressure twice a day, maintain your log to take to primary care physician for ongoing evaluation/management of your hypertension. As discussed at the bedside, you will likely benefit from outpatient echocardiogram given hypertension. Coordinate with your PCP office to set up the test. For your L1 compression fracture, orthospine evaluated you, recommend you establish with orthospine physician as an outpatient. For your right shoulder pain, orthopedics evaluated you, if no improvement in pain, follow-up with orthopedics as an outpatient. Your vitamin D level was low, your vitamin D supplement has been increased from 50 oh to 125 mcg daily. You will need repeat vitamin D level in about a month's time, coordinate with your PCP office to set up the test. Take your medications as prescribed. Please make sure that you are able to get your medications today by calling your pharmacy before you leave the hospital so that your treatment continuity is not broken. Addtl Derrick Hand Provider Instructions: ORTHOPEDIC INSTRUCTIONS Activity Recommendations: No restrictions with the right shoulder Follow-Up Visit: Follow-up with [facility] orthopedics if you want any further treatment of the shoulder. Please call the office to set up an appointment for a time that works for you. Pending Studies at Discharge: Yes Stand-Alone Forms: My [facility] Prolebrity, Smoking Cessation Medications and DC Order Prescriptions: New tamsulosin 0.4 mg Capsule 0.4 mg PO HS Qty: 30 0RF lisinopril 2.5 mg Tablet 2.5 mg PO HS Qty: 30 0RF diclofenac sodium [Voltaren Arthritis Pain] 1 % Gel 2 g EXT Q6H PRN (Reason: pain over right shoulder) Qty: 100 0RF cholecalciferol (vitamin D3) 125 mcg (5,000 unit) Tablet 125 mcg PO QAM Qty: 30 0RF Continued escitalopram oxalate 20 mg tablet 20 mg PO QAM tramadol 50 mg tablet 50 mg PO Q12 PRN (Reason: Severe Pain (Scale Score 7-10)) vitamin A 3,000 mcg (10,000 unit) capsule 10,000 unit PO QPM ursodiol 500 mg tablet 500 mg PO BIDM Rx Instructions: take with morning and evening meals Hair,Skin and Nails Tablet 1 tab PO DAILY Discontinued cholecalciferol (vitamin D3) [Vitamin D3] 50 mcg (2,000 unit) Tablet 50 mcg PO QAM ciprofloxacin HCl 500 mg tablet 500 mg PO Q12 Rx Instructions: 12/30/23 take for 7 days Discharge Orders: Discharge Order (Routine); Ordered 01/08/24 Ordered By: Tamara Torres Admission Data Admit Date/Time: 01/05/24 20:14 Attending Provider: Tamara Torres Admit Provider: Raúl Hernandez Primary Care Provider: Mary Grace Walker Other Providers: Raúl Hernandez; Pieter Sequeira; Nano Frank; Hubert Connell; Maryam Reyes; Kindra Faye.; Chuckie Moulton.; Sofiya Mendenhall.; Dank Wood; Jose C Stweart; Andrade Agustin.; Miguelito Hall; Gadiel Kaiser
[2024-01-08 12:00] VITALS: BP 96/56; PULSE 61
== END 2024-01-08 14:01 | disposition home or self-care (01) | DRG 660 ==
LOC: ED 18:40 → 2N 20:14 → SUATTDRO 20:14 → 2N 20:57